=== PATIENT | male | born 1950 | race Two or more races ===

== ENCOUNTER 2018-07-23 20:49 | Inpatient (IN) ==
--- NOTE | 2018-07-23 21:54 | XR ---
EXAM DATE: 07/23/2018 9:50 PM EST AGE/SEX: 68 years / Male INDICATIONS: Cardiac. Patient states he had a heart attack on 07/19/2018 and four stent plac[place] and was advised to come in to be evaluated once [place] was [place]. CLINICAL DATA: This is the patient's initial encounter. Patient reports that signs and symptoms have been present for 1 day and indicates a pain score of 0/10. MEDICAL/SURGICAL HISTORY: . Heart attack. . Stent placements. COMPARISON: [facility] [place]ST SINGLE AP, 11/04/2015. . FINDINGS: A single AP view of the chest demonstrates the lungs to be symmetrically aerated without evidence of mass, infiltrate or effusion. The cardiomediastinal contours are unremarkable. Osseous structures a re intact. CONCLUSION: No acute cardiopulmonary disease. Electronically signed by: Yuan Mejia MD 07/23/2018 9:53 PM EST
--- NOTE | 2018-07-23 22:06 | ED ---
HPI General Chief complaint: Chest Pain Stated complaint: Cardiac Time Seen by Provider: 07/23/18 21:13 History of Present Illness HPI narrative: Patient 68-year-old male presents emergency department for evaluation of coronary artery disease. The patient 4 days ago was surfing in [facility] and on his last wave and he noticed his chest felt uncomfortable. After some time he ultimately went to the local ER and was diagnosed with an inferior IN. He was transferred to a cardiac catheterization lab where he received 4 stents to his right coronary system. He was also noted to have some left main disease about 20% as well as disease of the left anterior descending in the proximal and distal portions. He arrives with a multitude of records from outside hospital a lot of which are nursing records but a summary report in Polish is what most of this information was taken from. Patient currently feels well just some minor fatigue. He actually did get in touch with Dr. Madrid through a friend of the hospital who recommended to come into the emergency department for evaluation. He denies any chest pain shortness of breath abdominal pain nausea vomiting currently. He has been taking his medications including Xarelto 2.5 mg which she was told was for prevention of heart disease. Related Data Home Medications Medication Instructions Recorded Confirmed atorvastatin [Lipitor] 40 mg PO DAILY 07/23/18 07/23/18 esomeprazole magnesium [Nexium 07/23/18 24HR] Allergies Allergy/AdvReac Type Severity Reaction Status Date / Time penicillin G Allergy Severe Unverified 04/16/17 12:50 Review of Systems ROS: all other systems reviewed are negative [facility] Medical History Medical History Heart attack (Acute) Pancreatitis (Acute) Surgical History Surgical History History of coronary artery stent placement (Acute) History of rotator cuff surgery (Acute) Social History Social History Substance History: No History of Abuse Smoking Status: Former smoker How Often Do You Have a Drink Containing Alcohol: Never Recent Travel in USA within the Last 8 Weeks: No Recent Out of Country Travel within the Last 8 Weeks: Yes Immunization History Tetanus Immunization: >5 Years Exam Narrative Exam Narrative: GENERAL: Well-developed well-nourished white pleasant male in no obvious distress. SKIN: Focused skin assessment warm/dry. HEAD: Atraumatic. Normocephalic. EYES: Pupils equal and round. No scleral icterus. No injection or drainage. ENT: No nasal bleeding or discharge. Mucous membranes pink and moist. NECK: Trachea midline. No JVD. CARDIOVASCULAR: Regular rate and rhythm. No murmur appreciated. No murmurs gallops or rubs 2+ symmetrical pulses in all 4 extremities RESPIRATORY: No accessory muscle use. Clear to auscultation. Breath sounds equal bilaterally. No wheezes rales or rhonchi GASTROINTESTINAL: Abdomen soft, non-tender, nondistended. Hepatic and splenic margins not palpable. MUSCULOSKELETAL: No obvious deformities. No clubbing. No cyanosis. No edema. NEUROLOGICAL: Awake and alert. No obvious cranial nerve deficits. Motor grossly within normal limits. Normal speech. PSYCHIATRIC: Appropriate mood and affect; insight and judgment normal. Course Initial Documented Vital Signs Temperature 98.6 F 07/23/18 20:56 Pulse Rate 58 L 07/23/18 20:56 Respiratory Rate 16 07/23/18 20:56 Blood Pressure 123/66 07/23/18 20:56 Pulse Oximetry 100 07/23/18 20:56 Last Documented Vital Signs Temperature 98.6 F 07/23/18 20:56 Pulse Rate 53 L 07/23/18 23:21 Respiratory Rate 18 07/23/18 21:06 Blood Pressure 148/74 H 07/23/18 21:06 Pulse Oximetry 99 07/23/18 23:21 Medical Decision Making MDM Narrative Medical decision making narrative: Patient room to the emergency department, he was discussed with Dr. Madrid on arrival and recommended admission for trending of and CK-MB. He would like to evaluate the patient in the morning for possible repeat cath and recommends n.p.o. after midnight. He would like to review all the records from outside including the cath report before he makes any decisions. Patient's recommendations were discussed with him and he is agreeable to stay. Labs still pending at this time anticipate a positive troponin as his initial event was less than 4 days ago and patient had a troponin of at least 20 at the hospital in [facility]. troponin indeed positive but ckmb negative. patient cp free. ekg shows no acute ischemia. Medical Screen Exam Complete: Yes Emergency Medical Condition: Yes Lab Data Result diagrams: 07/23/18 21:40 07/23/18 21:40 Lab Results 07/23/18 07/23/18 Range/Units 21:40 21:40 WBC 8.3 (4.0-11.0) th/mm3 RBC 4.27 L (4.50-5.90) mil/mm3 Hgb 13.2 (13.0-17.0) gm/dL Hct 38.4 L (39.0-51.0) % MCV 89.8 (80.0-100.0) fL MCH 30.9 (27.0-34.0) pg MCHC 34.4 (32.0-36.0) % RDW 13.8 (11.6-17.2) % Plt Count 201 (150-450) th/mm3 MPV 7.7 (7.0-11.0) fL Neut % (Auto) 65.7 (16.0-70.0) % Lymph % (Auto) 23.2 (9.0-44.0) % [place] % (Auto) 8.5 H (0.0-8.0) % Eos % (Auto) 2.1 (0.0-4.0) % Baso % (Auto) 0.5 (0.0-2.0) % Neut # (Auto) 5.4 (1.8-7.7) th/mm3 Lymph # (Auto) 1.9 (1.0-4.8) th/mm3 [place] # (Auto) 0.7 (0.0-0.9) th/mm3 Eos # (Auto) 0.2 (0.0-0.4) th/mm3 Baso # (Auto) 0.0 (0.0-0.2) th/mm3 WBC Differential . Differential Comment Auto diff final Sodium 139 (136-145) meq/L Potassium 3.6 (3.5-5.1) meq/L Chloride 107 (98-107) meq/L Carbon Dioxide 25.5 (21.0-32.0) meq/L Anion Gap 7 (5-15) meq/L BUN 13 (7-18) mg/dL Creatinine 1.11 (0.60-1.30) mg/dL Estimated GFR 66 L (>89) mL/min Random Glucose 89 (74-106) mg/dL Calcium 8.8 (8.5-10.1) mg/dL Total Bilirubin 0.6 (0.2-1.0) mg/dL AST 38 H (15-37) U/L ALT 43 (12-78) U/L Alkaline Phosphatase 84 (45-117) U/L Total Creatine Kinase 89 (39-308) U/L Troponin I 4.38 H* (0.02-0.05) ng/mL Total Protein 7.3 (6.4-8.2) g/dL Albumin 3.4 (3.4-5.0) g/dL Imaging Data Radiologist's impression: Chest X-Ray 07/23/18 21:37 CONCLUSION: No acute cardiopulmonary disease. Discharge Plan Discharge Disposition Patient Disposition: 30 Still Patient Discharge Condition Condition: Stable Discharge Details Diagnosis: Coronary artery disease Physicians Team ED Provider: Kleby Meléndez Primary Care Provider: Juan Sebastian Attending Provider: Sharon Leonardo Discharge Interventions Interventions: Vital Signs Last Done: 07/23/18 21:06 Status ED Status: Admitted Patient
[2018-07-23 22:07] LABS: Baso % (Auto) 0.5 % (0.0-2.0); Eos # (Auto) 0.2 th/mm3 (0.0-0.4); Eos % (Auto) 2.1 % (0.0-4.0); Hematocrit 38.4 % (39.0-51.0); Hemoglobin 13.2 gm/dL (13.0-17.0); Lymph # (Auto) 1.9 th/mm3 (1.0-4.8); Lymph % (Auto) 23.2 % (9.0-44.0); Mean Corpuscular HGB Conc 34.4 % (32.0-36.0); Mean Corpuscular Hemoglobin 30.9 pg (27.0-34.0); Mean Corpuscular Volume 89.8 fL (80.0-100.0); Mean Platelet Volume 7.7 fL (7.0-11.0); Mono # (Auto) 0.7 th/mm3 (0.0-0.9); Mono % (Auto) 8.5 % (0.0-8.0); Neut # (Auto) 5.4 th/mm3 (1.8-7.7); Neut % (Auto) 65.7 % (16.0-70.0); Platelet Count 201 th/mm3 (150-450); Red Blood Count 4.27 mil/mm3 (4.50-5.90); Red Cell Distribution Width 13.8 % (11.6-17.2); White Blood Count 8.3 th/mm3 (4.0-11.0)
[2018-07-23 22:23] LABS: Albumin 3.4 g/dL (3.4-5.0); Anion Gap 7 meq/L (5-15); Aspartate Aminotransferase 38 U/L (15-37); Blood Urea Nitrogen 13 mg/dL (7-18); Calcium 8.8 mg/dL (8.5-10.1); Carbon Dioxide 25.5 meq/L (21.0-32.0); Chloride 107 meq/L (98-107); Glomerular Filtration Rate 66 mL/min (>89); Glucose,Random 89 mg/dL (74-106); Potassium 3.6 meq/L (3.5-5.1); Sodium 139 meq/L (136-145)
[2018-07-23 22:25] LABS: Alanine Aminotransferase 43 U/L (12-78)
[2018-07-23 22:28] LABS: Alkaline Phosphatase 84 U/L (45-117); Total Protein 7.3 g/dL (6.4-8.2)
[2018-07-23 22:34] LABS: Creatine Kinase 89 U/L (39-308)
[2018-07-23 22:37] LABS: Troponin I 4.38 ng/mL (0.02-0.05)
[2018-07-23] MEDS ORDERED: Bisacodyl 10 MG Supp RECTAL PRN (23:55)
[2018-07-23] MEDS ORDERED: Acetaminophen 325 MG Tablet PO PRN (23:55)
--- NOTE | 2018-07-24 01:23 | P.HP ---
History of Present Illness Service: [facility] Primary Care Physician: Juan Sebastian MD History of Present Illness: 68-year-old male with a past medical history for coronary artery disease, not on any home medications, presents to the emergency department for further evaluation me that occurred on Saturday. The patient was surfing in [facility] when he developed chest pain and was subsequently diagnosed with a right sided SC, status post stenting x4. He was discharged from the hospital in [facility] yesterday and returned to [place] for further evaluation today. He endorses intermittent episodes of chest pain/pressure that radiates down his left arm. He states that the pain usually lasts approximately 2 minutes and then subsides. The pain occurs while at rest. He denies any associated shortness of breath. Positive lightheadedness. No abdominal pain. No nausea/ vomiting/diarrhea. No fever/chills. No focal neurologic deficits. Inpatient Certification: I certify that the inpatient services were ordered in accordance with Medicare regulations governing the order. This includes certification that hospital inpatient services are reasonable and necessary and in the case of services not specified as inpatient-only under 42 CFR 419.22(n), that they are appropriately provided as inpatient services in accordance to with the 2-midnight benchmark under 43 CFR 412.3(e) Estimated Total Length of Stay (Days): 2 Plans for Post Hospital Care: Home Review of Systems All other systems reviewed negative except as stated in HPI [facility] - History History Provided By: Patient - Medical History Medical History: Medical History (Last Reviewed 07/24/18 @ 01:20 by Sharon Leonardo MD) Heart attack Pancreatitis - Surgical History Surgical History: Surgical History (Last Reviewed 07/24/18 @ 01:20 by Sharon Leonardo MD) History of coronary artery stent placement History of rotator cuff surgery - Family History Family History: Family History (Last Updated 07/24/18 @ 01:20 by Sharon Leonardo MD) Other Coronary artery disease - Tobacco History Smoking Status: Former smoker - Alcohol History How Often Do You Have a Drink Containing Alcohol: Never - Substance Use History Substance History: No History of Abuse - Travel History Recent Travel in the [place] Within the Last 8 Weeks: No Recent Travel Out of the Country Within the Last 8 Weeks: Yes - Immunization History Tetanus Immunization: >5 Years Medications and Allergies Active Medications: Active Medications Acetaminophen (Tylenol) 650 mg PO Q4H PRN PRN Reason: Temp > 100.4 Al Hydroxide/Mg Hydroxide (Milk Of Magnesia Liq) 30 ml PO Q12H PRN PRN Reason: Mild Constipation Bisacodyl (Dulcolax Supp) 10 mg RECTAL DAILY PRN PRN Reason: SEVERE CONSITIPATION Lactulose (Lactulose Liq) 30 ml PO DAILY PRN PRN Reason: SEVERE CONSITIPATION Ondansetron HCl (Zofran Inj) 4 mg IV.PUSH Q6H PRN PRN Reason: NAUSEA OR VOMITING Sennosides (Senokot) 17.2 mg PO Q12H PRN PRN Reason: Moderate Constipation Sodium Chloride (Ns Flush) 2 ml IV.FLUSH UNSCH PRN PRN Reason: FLUSH AFTER USING IV ACCESS Allergies Allergy/AdvReac Type Severity Reaction Status Date / Time penicillin G Allergy Severe Unverified 04/16/17 12:50 Home Medications Medication Instructions Recorded Confirmed Type atorvastatin [Lipitor] 40 mg PO DAILY 07/23/18 07/23/18 History esomeprazole magnesium [Nexium 07/23/18 History 24HR] Exam Vital signs: Vital Signs 07/23/18 20:56 07/23/18 21:06 07/23/18 23:21 Temperature 98.6 F Pulse Rate 58 L 45 L 53 L Respiratory Rate 16 18 Blood Pressure 123/66 148/74 H Pulse Oximetry 100 100 99 Intake & Output 07/23/18 07/23/18 07/24/18 06:59 18:59 06:59 Weight 74.843 kg Narrative: Gen.: No acute distress Head: Normocephalic. Atraumatic. EENT: Pupils equal round and reactive to light. Nose without drainage. Airway intact. Throat without injection. Cardiovascular: Regular rate and rhythm. No murmurs, rubs or gallops. Respiratory: Lungs clear to auscultation bilaterally. No wheezes or rhonchi. Abdomen: Soft, nontender, nondistended. No peritoneal signs. Musculoskeletal: No gross deformities. No edema. Skin: No obvious rashes or erythema. Neuro: Sensory and motor grossly intact. Cranial nerves II through XII grossly intact. Results - Labs CBC & Chem 7: 07/23/18 21:40 07/23/18 21:40 Labs: Laboratory Results - last 24 hr 07/23/18 07/23/18 21:40 21:40 WBC 8.3 RBC 4.27 L Hgb 13.2 Hct 38.4 L MCV 89.8 MCH 30.9 MCHC 34.4 RDW 13.8 Plt Count 201 MPV 7.7 Neut % (Auto) 65.7 Lymph % (Auto) 23.2 [place] % (Auto) 8.5 H Eos % (Auto) 2.1 Baso % (Auto) 0.5 Neut # (Auto) 5.4 Lymph # (Auto) 1.9 [place] # (Auto) 0.7 Eos # (Auto) 0.2 Baso # (Auto) 0.0 WBC Differential . Differential Comment Auto diff final Sodium 139 Potassium 3.6 Chloride 107 Carbon Dioxide 25.5 Anion Gap 7 BUN 13 Creatinine 1.11 Estimated GFR 66 L Random Glucose 89 Calcium 8.8 Total Bilirubin 0.6 AST 38 H ALT 43 Alkaline Phosphatase 84 Total Creatine Kinase 89 Troponin I 4.38 H* Total Protein 7.3 Albumin 3.4 - Imaging Impressions Chest X-Ray 07/23/18 21:37 CONCLUSION: No acute cardiopulmonary disease. Caprini VTE Risk Assessment Caprini VTE Risk Assessment: Moderate/High Risk (score >= 2) Caprini Risk Assessment Model: Point Value = 1 Point Value = 2 Point Value = 3 Point Value = 5 Age 41-60 Minor surgery BMI > 25 kg/m2 Swollen legs Varicose veins or History of unexplained or recurrent spontaneous Oral contraceptives or hormone replacement Sepsis (< 1 month) Serious lung disease, including pneumonia (< 1 month) Abnormal pulmonary function Acute myocardial infarction Congestive heart failure (< 1 month) History of inflammatory bowel disease Medical patient at bed rest Age 61-74 Arthroscopic surgery Major open surgery (> 45 min) Laparoscopic surgery (> 45 min) Malignancy Confined to bed (> 72 hours) Immobilizing plaster cast Central venous access Age >= 75 History of VTE Family history of VTE Factor V Leiden Prothrombin [id number] Lupus anticoagulant Anticardiolipin antibodies Elevated serum homocysteine Heparin-induced thrombocytopenia Other congenital or acquired thrombophilia Stroke (< 1 month) Elective arthroplasty Hip, pelvis, or leg fracture Acute spinal cord injury (< 1 month) Prophylaxis Regimen: Total Risk Factor Score Risk Level Prophylaxis Regimen 0-1 Low Early ambulation 2 Moderate Order ONE of the following: *Sequential Compression Device (SCD) *Heparin 5000 units SQ BID 3-4 Higher Order ONE of the following medications: *Heparin 5000 units SQ TID *Enoxaparin/Lovenox 40 mg SQ daily (WT < 150 kg, CrCl > 30 mL/min) *Enoxaparin/Lovenox 30 mg SQ daily (WT < 150 kg, CrCl > 10-29 mL/min) *Enoxaparin/Lovenox 30 mg SQ BID (WT < 150 kg, CrCl > 30 mL/min) AND/OR *Sequential Compression Device (SCD) 5 or more Highest Order ONE of the following medications: *Heparin 5000 units SQ TID (Preferred with Epidurals) *Enoxaparin/Lovenox 40 mg SQ daily (WT < 150 kg, CrCl > 30 mL/min) *Enoxaparin/Lovenox 30 mg SQ daily (WT < 150 kg, CrCl > 10-29 mL/min) *Enoxaparin/Lovenox 30 mg SQ BID (WT < 150 kg, CrCl > 30 mL/min) AND *Sequential Compression Device (SCD) Assessment and Plan - Plan Assessment/plan: 1. Coronary disease/status post SC/unstable angina Patient is status post angioplasty of critically occluded RCA and PDA (4 stents) Patient was also noted to have left main disease as well as LAD in the proximal and distal portions Initial troponin was 20.2, repeat today 4.38 Repeat troponin in 6 hours to ensure it is trending down EKG negative for acute ischemia, personally reviewed Cardiology consulted, plan for possible repeat catheterization in the morning Continue plavix FEN N.p.o. Electrolytes: Monitor and replete as needed NS at 100 cc/hour Heparin
[2018-07-24 03:43] LABS: Baso # (Auto) 0.1 th/mm3 (0.0-0.2); Eos # (Auto) 0.2 th/mm3 (0.0-0.4); Eos % (Auto) 2.3 % (0.0-4.0); Hematocrit 37.2 % (39.0-51.0); Hemoglobin 13.2 gm/dL (13.0-17.0); Lymph # (Auto) 1.8 th/mm3 (1.0-4.8); Lymph % (Auto) 21.9 % (9.0-44.0); Mean Corpuscular HGB Conc 35.5 % (32.0-36.0); Mean Corpuscular Hemoglobin 31.6 pg (27.0-34.0); Mean Platelet Volume 7.4 fL (7.0-11.0); Mono # (Auto) 0.7 th/mm3 (0.0-0.9); Mono % (Auto) 8.1 % (0.0-8.0); Neut # (Auto) 5.4 th/mm3 (1.8-7.7); Neut % (Auto) 66.7 % (16.0-70.0); Platelet Count 182 th/mm3 (150-450); Red Blood Count 4.18 mil/mm3 (4.50-5.90); Red Cell Distribution Width 13.6 % (11.6-17.2); White Blood Count 8.1 th/mm3 (4.0-11.0)
[2018-07-24 04:07] LABS: Calcium 8.9 mg/dL (8.5-10.1); Carbon Dioxide 25.5 meq/L (21.0-32.0); Potassium 3.8 meq/L (3.5-5.1)
[2018-07-24 04:14] LABS: Troponin I 3.95 ng/mL (0.02-0.05)
[2018-07-24] MEDS ORDERED: Heparin - SQ 10,000 UNITS/ML Vial SQ SCH (06:00)
[2018-07-24] MEDS: Sod Chloride 0.9% Inj 1,000 ML IV.CONT SCH ×3 (06:14→21:19)
--- NOTE | 2018-07-24 08:08 | P.PN ---
Subjective Interval history: Follow-up for CAD status post recent stent placements. He was admitted to the hospital due to ongoing chest pressure. His last 2 troponins were 4.38 and 3.95. Cardiology consult pending. Physical Exam Vital signs: Vital Signs 07/23/18 20:56 07/23/18 21:06 07/23/18 23:21 Temperature 98.6 F Pulse Rate 58 L 45 L 53 L Respiratory Rate 16 18 Blood Pressure 123/66 148/74 H Pulse Oximetry 100 100 99 07/24/18 01:50 07/24/18 02:00 07/24/18 03:00 Temperature 97.7 F Pulse Rate 47 L 50 L 44 L Respiratory Rate 14 14 Blood Pressure 129/63 102/62 Pulse Oximetry 100 100 07/24/18 04:00 07/24/18 05:37 07/24/18 06:00 Temperature Pulse Rate 45 L 45 L 44 L Respiratory Rate Blood Pressure Pulse Oximetry Intake & Output 07/23/18 07/24/18 07/24/18 18:59 06:59 18:59 Intake Total 0 / 0 Output Total 100 / 100 Balance -100 / -100 Weight 73 kg Intake: Oral 0 / 0 Output: Urine 100 / 100 Other: # Bowel Movements 0 Narrative: GENERAL: Alert, oriented x3, NAD. SKIN: Warm and dry. HEAD: Normocephalic. EYES: No scleral icterus. No injection or drainage. NECK: Supple, trachea midline. No JVD or lymphadenopathy. CARDIOVASCULAR: Regular rate and rhythm without murmurs, gallops, or rubs. RESPIRATORY: Breath sounds equal bilaterally. No accessory muscle use. GASTROINTESTINAL: Abdomen soft, non-tender, nondistended. MUSCULOSKELETAL: No cyanosis, or edema. BACK: Nontender without obvious deformity. No CVA tenderness. Results - Labs CBC & Chem 7: 07/24/18 03:33 07/24/18 03:33 Laboratory Results - last 24 hr 07/23/18 07/23/18 07/24/18 21:40 21:40 03:33 WBC 8.3 8.1 RBC 4.27 L 4.18 L Hgb 13.2 13.2 Hct 38.4 L 37.2 L MCV 89.8 89.0 MCH 30.9 31.6 MCHC 34.4 35.5 RDW 13.8 13.6 Plt Count 201 182 MPV 7.7 7.4 Neut % (Auto) 65.7 66.7 Lymph % (Auto) 23.2 21.9 [place] % (Auto) 8.5 H 8.1 H Eos % (Auto) 2.1 2.3 Baso % (Auto) 0.5 1.0 Neut # (Auto) 5.4 5.4 Lymph # (Auto) 1.9 1.8 [place] # (Auto) 0.7 0.7 Eos # (Auto) 0.2 0.2 Baso # (Auto) 0.0 0.1 WBC Differential . . Differential Comment Auto diff final Auto diff final Sodium 139 Potassium 3.6 Chloride 107 Carbon Dioxide 25.5 Anion Gap 7 BUN 13 Creatinine 1.11 Estimated GFR 66 L Random Glucose 89 Calcium 8.8 Total Bilirubin 0.6 AST 38 H ALT 43 Alkaline Phosphatase 84 Total Creatine Kinase 89 Troponin I 4.38 H* Total Protein 7.3 Albumin 3.4 07/24/18 03:33 WBC RBC Hgb Hct MCV MCH MCHC RDW Plt Count MPV Neut % (Auto) Lymph % (Auto) [place] % (Auto) Eos % (Auto) Baso % (Auto) Neut # (Auto) Lymph # (Auto) [place] # (Auto) Eos # (Auto) Baso # (Auto) WBC Differential Differential Comment Sodium 142 Potassium 3.8 Chloride 108 H Carbon Dioxide 25.5 Anion Gap 9 BUN 15 Creatinine 1.04 Estimated GFR 71 L Random Glucose 96 Calcium 8.9 Total Bilirubin AST ALT Alkaline Phosphatase Total Creatine Kinase 71 Troponin I 3.95 H* Total Protein Albumin - Imaging Impressions Chest X-Ray 07/23/18 21:37 CONCLUSION: No acute cardiopulmonary disease. - Procedures Patient underwent 4 cardiac stent placement in [facility] prior to coming to [place]. Assessment and Plan - Plan Mr. Pitts is a very pleasant 68-year-old male with a history of coronary artery disease who presented to the emergency department on 07/24/2018 due to chest pressure. Patient was recently in [facility] where he developed chest pain and was subsequently diagnosed with right-sided myocardial infarction requiring 4 stents. He was discharged from the hospital on Saturday and he flew back to [place] after that. Due to intermittent chest pain that radiates to his left arm, patient decided to come to the emergency department. His troponin was 4.38 admission. Elevated troponin Chest pain Coronary artery disease -s/p 4 stent placements in [facility]. Elevated troponins likely due to recent acute coronary syndrome Cardiology consult pending. Continue aspirin 162 mg p.o. daily, Plavix 75 mg p.o. daily. Patient's heart rate is in the 40s-50s. Blood pressure is also low in the 116 range systolic. We probably cannot use a beta radha at this point. -We will start patient on atorvastatin 40 mg at bedtime. Full code. Lovenox for DVT prophylaxis.
--- NOTE | 2018-07-24 10:25 | MB ---
cc: Matty Madrid MD DATE: 07/24/2018 HISTORY OF PRESENT ILLNESS: Tulio is a very pleasant 68-year-old gentleman, who is a [place] citizen, who lives in [facility]. On 07/19/2018, he had an inferior ST-elevation myocardial infarction, underwent a PCI through the right radial approach with 4 stents placed in the right coronary artery. Angiography also revealed a high-grade ostial LAD lesion. LV function was not assessed on the films. I did review his films today. The patient flew up from [facility] yesterday, and was electively admitted to [place] through the ER last night. He is currently sitting up in bed in no acute distress. Denies chest pain, fever, chills, cough, GI or bleeding, PND, orthopnea, syncope, or dizziness. PAST MEDICAL HISTORY: Includes myocardial infarction, pancreatitis, rotator cuff surgery. ALLERGIES: PENICILLIN G. SOCIAL HISTORY: Former smoker. Denies alcohol use. Currently does not smoke. MEDICATIONS IN THE HOSPITAL: 1. Aspirin 162 mg daily. 2. Clopidogrel 75 mg daily. 3. Heparin 5000 subcutaneous every 8 hours. PHYSICAL EXAMINATION: VITAL SIGNS: Pulse ranging between 44 and 57. Temperature 97.9, respiratory rate 16, blood pressure 116/59. GENERAL: He is alert and oriented x3, in no acute distress. NECK: Supple. No JVD. No bruit. CARDIOVASCULAR: S1, S2. No murmurs, rubs or gallops. LUNGS: Clear to auscultation bilaterally. ABDOMEN: Soft, nontender, nondistended with positive bowel sounds. EXTREMITIES: No lower extremity edema. DIAGNOSTIC DATA: Chest x-ray shows no acute cardiopulmonary disease. EKG shows sinus bradycardia at 45 beats per minute, inferior Q-waves with [address] segment elevation, T-wave inversion consistent with a recent inferior myocardial infarction. White count 8.1, hemoglobin 13.2, hematocrit 37.2, platelet count is 182. Sodium 142, potassium 3.8, chloride 108, bicarbonate 25.5, BUN 15, creatinine 1.04. AST is 38. Troponin 4.3, followed by 3.95. DIAGNOSES: 1. Coronary artery disease. 2. Recent ST-elevation myocardial infarction. 3. Sinus bradycardia. DISCUSSION: At this point in time, I have reviewed his films. He has approximately a 30-45 degree angulation of the LAD off the left circumflex with an ostial LAD stenosis of 80% extending into the proximal LAD. This will be a very high risk intervention, as it would be impossible to stent the ostium of the LAD without possibly jailing the left circumflex, and/or having a corner of the stent existing in the distal left main. this would be high risk for stent thrombosis and high risk for mortality if this were to occur. Given the ostial proximal location of the LAD, he is asymptomatic; however, due to the large amount of jeopardized myocardium, it is a high risk lesion, and I recommend a coronary artery bypass graft procedure to this vessel. This will be somewhat of a dilemma to this decision, given the long length of stent placement in the right coronary artery recently and recent [facility], and requirement for dual antiplatelet therapy. I discussed this in detail with him with the nurse, Rylee, at the bedside. Could consider perioperative heparin and Aggrastat. We will get a consult with cardiothoracic surgery. I also recommend getting a 2-D echo, as it does not appear he has had a ventriculogram on the catheterization films that I reviewed. Also will start him on Lovenox subcutaneously every 12 hours due to the long length of stent in the right coronary artery and ongoing bradycardia. His liver enzymes are elevated, most likely from the infarction. We will check fasting lipids, LFTs, and CK, and trend the liver enzymes. Once they normalize, will start a statin. MD HANS Hinojosa/ , 09:56 AM , 10:06 AM
--- NOTE | 2018-07-24 15:29 | ECHRPT ---
Indication: CORONARY ATHEROSCLEROSIS CONCLUSIONS Normal left ventricular size. Wall thickness is normal. The left ventricular systolic function is normal with an estimated ejection fraction in the range of 55-60%. Trace mitral valve regurgitation. BP: / HR: Rhythm: Sinus MEASUREMENTS (Male / Female) Normal Values Technical Quality:Fair 2D ECHO LV Diastolic Diameter PLAX 5.3 cm 4.2 - 5.9 / 3.9 - 5.3 cm LV Systolic Diameter PLAX 4.0 cm IVS Diastolic Thickness 0.8 cm 0.6 - 1.0 / 0.6 - 0.9 cm LVPW Diastolic Thickness 0.8 cm 0.6 - 1.0 / 0.6 - 0.9 cm LV Relative Wall Thickness 0.3 RV Internal Dim ED PLAX 2.8 cm LVOT Diameter 2.1 cm Aortic Root Diameter 3.8 cm LA Systolic Diameter LX 3.7 cm 3.0 - 4.0 / 2.7 - 3.8 cm M-MODE AV Cusp Separation MM 2.1 cm DOPPLER AV Peak Velocity 123.0 cm/s AV Peak Gradient 6.1 mmHg AV Mean Gradient 3.0 mmHg AV Velocity Time Integral 21.1 cm LVOT Peak Velocity 100.0 cm/s LVOT Peak Gradient 4.0 mmHg LVOT Velocity Time Integral 19.6 cm AV Area Cont Eq vti 3.2 cm AV Area Cont Eq pk 2.8 cm Mitral E Point Velocity 63.2 cm/s Mitral A Point Velocity 70.6 cm/s Mitral E to A Ratio 0.9 LV E' Lateral Velocity 10.0 cm/s Mitral E to LV E' Lateral Ratio 6.3 LV E' Septal Velocity 6.1 cm/s Mitral E to LV E' Septal Ratio 10.3 TR Peak Velocity 214.0 cm/s TR Peak Gradient 18.3 mmHg PV Peak Velocity 45.1 cm/s PV Peak Gradient 0.8 mmHg FINDINGS LEFT VENTRICLE Normal left ventricular size. Wall thickness is normal. The left ventricular systolic function is normal with an estimated ejection fraction in the range of 55-60%. RIGHT VENTRICLE Normal right ventricular size and systolic function. LEFT ATRIUM The left atrial size is normal. RIGHT ATRIUM The right atrial size is normal. ATRIAL SEPTUM No atrial level shunt is demonstrated by color flow Doppler interrogation. AORTA The aortic root and proximal ascending aorta are normal in size on limited imaging. MITRAL VALVE Trace mitral valve regurgitation. AORTIC VALVE Trileaflet aortic valve. No aortic valve stenosis or regurgitation. TRICUSPID VALVE There is trace tricuspid valve regurgitation. PULMONARY VALVE No pulmonary valve regurgitation or stenosis. VESSELS The inferior vena cava was not well visualized. PERICARDIUM No pericardial effusion. Max Arteaga MD (Electronically Signed) Final Date:24 July 2018 15:28
[2018-07-24] MEDS: Enoxaparin Inj 80 MG/0.8 ML Syringe SQ SCH (21:17)
--- NOTE | 2018-07-24 22:27 | ECG ---
Date Performed: 07/24/2018 Time Performed: 08:15:18 PTAGE: 68 years EKG: Sinus bradycardia with 1st degree A-V block Inferior infarct - age undetermined Low QRS vol tages in limb leads Abnormal ECG PREVIOUS TRACING : 07/24/2018 04.08 Since the previous tracing, no significant change noted DOCTOR: Paul Delgadillo Interpretating Date/Time 07/24/2018 22:26:53
--- NOTE | 2018-07-24 22:41 | ECG ---
Date Performed: 07/24/2018 Time Performed: 04:08:04 PTAGE: 68 years EKG: Sinus bradycardia with 1st degree A-V block Inferior infarct - age undetermined Abnormal EC G PREVIOUS TRACING : 10/31/2015 04.48 DOCTOR: Paul Delgadillo Interpretating Date/Time 07/24/2018 22:40:26
--- NOTE | 2018-07-24 23:13 | ECG ---
Date Performed: 07/23/2018 Time Performed: 21:10:49 PTAGE: 68 years EKG: SINUS BRADYCARDIA WITH FIRST DEGREE AV BLOCK INFERIOR MYOCARDIAL INFARCTION ABNORMAL ECG IL EVIOUS ECG 4.48: Compared to PREVIOUS TRACING , sinus bradycardia is new DOCTOR: Paul Delgadillo Interpretating Date/Time 07/24/2018 23:11:31
[2018-07-25] MEDS ORDERED: Metoprolol Tartrate 25 MG Tablet PO SCH (05:00)
[2018-07-25 05:50] LABS: Hemoglobin 12.8 gm/dL (13.0-17.0); Mean Corpuscular HGB Conc 34.7 % (32.0-36.0); Mean Corpuscular Hemoglobin 31.1 pg (27.0-34.0); Mean Corpuscular Volume 89.7 fL (80.0-100.0); Mean Platelet Volume 7.6 fL (7.0-11.0); Platelet Count 172 th/mm3 (150-450); Red Blood Count 4.12 mil/mm3 (4.50-5.90); Red Cell Distribution Width 13.5 % (11.6-17.2); White Blood Count 8.7 th/mm3 (4.0-11.0)
[2018-07-25 06:19] LABS: Albumin 2.9 g/dL (3.4-5.0)
[2018-07-25 06:22] LABS: Chol/HDL Ratio 3.11 Ratio; HDL Cholesterol 34.3 mg/dL (40.0-60.0); Total Protein 6.5 g/dL (6.4-8.2)
[2018-07-25] MEDS: Enoxaparin Inj 80 MG/0.8 ML Syringe SQ SCH (08:38)
--- NOTE | 2018-07-25 12:01 | P.PN ---
Subjective Interval history: Follow-up for CAD status post recent stent placements. Recent is currently doing well. He is ablating in the room. On room air. He does have mild chest pressure sensation. No other acute concerns. He remains in good spirit. Physical Exam Vital signs: Vital Signs 07/24/18 12:00 07/24/18 13:00 07/24/18 14:00 Temperature 97.8 F Pulse Rate 46 L 48 L 58 L Respiratory Rate 16 Blood Pressure 116/56 L Pulse Oximetry 99 07/24/18 15:00 07/24/18 16:00 07/24/18 17:00 Temperature 97.2 F L Pulse Rate 53 L 64 57 L Respiratory Rate 16 Blood Pressure 98/55 L Pulse Oximetry 100 07/24/18 18:00 07/24/18 19:00 07/24/18 20:00 Temperature 97.7 F Pulse Rate 58 L 50 L 52 L Respiratory Rate 18 Blood Pressure 119/62 Pulse Oximetry 100 100 07/24/18 21:00 07/24/18 22:00 07/24/18 23:00 Temperature 97.8 F Pulse Rate 46 L 48 L 56 L Respiratory Rate 18 Blood Pressure 102/53 L Pulse Oximetry 100 07/25/18 00:00 07/25/18 01:00 07/25/18 02:00 Temperature Pulse Rate 53 L 55 L 51 L Respiratory Rate Blood Pressure Pulse Oximetry 07/25/18 03:00 07/25/18 04:00 07/25/18 05:00 Temperature 98.0 F Pulse Rate 55 L 57 L 54 L Respiratory Rate 18 Blood Pressure 107/61 Pulse Oximetry 98 07/25/18 06:00 07/25/18 07:00 07/25/18 08:00 Temperature 98.0 F Pulse Rate 71 48 L 60 Respiratory Rate 16 Blood Pressure 106/55 L Pulse Oximetry 98 07/25/18 08:30 07/25/18 09:00 07/25/18 10:00 Temperature Pulse Rate 58 L 46 L Respiratory Rate Blood Pressure Pulse Oximetry 98 07/25/18 11:00 Temperature 97.3 F L Pulse Rate 50 L Respiratory Rate 16 Blood Pressure 116/66 Pulse Oximetry 100 Intake & Output 07/24/18 07/25/18 07/25/18 18:59 06:59 18:59 Intake Total 480 / 480 1410 / 1410 Output Total 550 / 550 Balance -70 / -70 1410 / 1410 Weight 74 kg Intake: IV 1000 / 1000 NS Inj 1,000 ML @ 100 mls/hr IV 1000 / 1000 .CONT .Q10H [facility] Rx#:[id number] Oral 480 / 480 410 / 410 Output: Urine 550 / 550 Other: # Voids 4 2 Date of Last Bowel Movement 07/22/18 07/22/18 # Bowel Movements 0 Narrative: GENERAL: Alert, oriented x3, NAD. SKIN: Warm and dry. HEAD: Normocephalic. EYES: No scleral icterus. No injection or drainage. NECK: Supple, trachea midline. No JVD or lymphadenopathy. CARDIOVASCULAR: Regular rate and rhythm without murmurs, gallops, or rubs. RESPIRATORY: Breath sounds equal bilaterally. No accessory muscle use. GASTROINTESTINAL: Abdomen soft, non-tender, nondistended. MUSCULOSKELETAL: No cyanosis, or edema. BACK: Nontender without obvious deformity. No CVA tenderness. Results - Labs CBC & Chem 7: 07/25/18 05:26 07/24/18 03:33 Laboratory Results - last 24 hr 07/25/18 07/25/18 07/25/18 05:26 05:26 05:26 WBC 8.7 RBC 4.12 L Hgb 12.8 L Hct 37.0 L MCV 89.7 MCH 31.1 MCHC 34.7 RDW 13.5 Plt Count 172 MPV 7.6 Magnesium 2.0 Total Bilirubin 0.5 Direct Bilirubin 0.2 Indirect Bilirubin 0.3 AST 20 ALT 33 Alkaline Phosphatase 85 B-Natriuretic Peptide 178 H Total Protein 6.5 D Albumin 2.9 L Triglycerides 108 Cholesterol 107 L LDL Cholesterol, Calc 51 HDL Cholesterol 34.3 L Cholesterol/HDL Ratio 3.11 - Procedures Patient underwent 4 cardiac stent placement in [facility] prior to coming to [facility]. Assessment and Plan - Plan Mr. Pitts is a very pleasant 68-year-old male with a history of coronary artery disease who presented to the emergency department on 07/24/2018 due to chest pressure. Patient was recently in [facility] where he developed chest pain and was subsequently diagnosed with right-sided myocardial infarction requiring 4 stents. He was discharged from the hospital on Saturday and he flew back to [place] after that. Due to intermittent chest pain that radiates to his left arm, patient decided to come to the emergency department. His troponin was 4.38 admission. Elevated troponin Chest pain Coronary artery disease Multivessel CAD. -s/p 4 stent placements in [facility]. Elevated troponins likely due to recent acute coronary syndrome Cardiology evaluated patient and recommended Cardiovascular surgery evaluation Continue aspirin 162 mg p.o. daily, Plavix 75 mg p.o. daily. Patient's heart rate is in the 40s-50s. Blood pressure is also low in the 116 range systolic. We probably cannot use a beta radha at this point. -We will continue patient on atorvastatin 40 mg at bedtime. Full code. Currently on full dose Lovenox per Cardiology rec. Lovenox 80mg Q12hrs.
[2018-07-25] MEDS ORDERED: Dextrose 50% in Water 50 ML Vial IV.PUSH PRN (12:45)
[2018-07-25] MEDS ORDERED: Chlorhexidine 4% Topical 120 APPLIC/120 ML Bottle TOPICAL SCH (12:45)
[2018-07-25] MEDS ORDERED: Sodium Chlor 0.9% Inj 77.5 ML, Papaverine Inj 60 MG, Nitroglycerin Inj 100 MCG, dilTIAZ... IRRIGATION SCH ×3 (12:45)
[2018-07-25] MEDS ORDERED: Sodium Chloride 0.9% Irr Bot 1,000 ML, Vancomycin Inj 1,000 MG IRRIGATION SCH ×2 (12:45)
[2018-07-25] MEDS ORDERED: Insulin Regular (For Infusion) 100 UNIT in Sodium Chlor 0.9% Inj 99 ML IV.CONT PRN (12:45)
[2018-07-25] MEDS ORDERED: Tirofiban Inj 12,500 MCG/250 ML PLAST..BAG IV.CONT SCH (13:00)
[2018-07-25] MEDS ORDERED: Vancomycin Inj 1,250 MG in Sodium Chlor 0.9% Inj 250 ML IV.SIG SCH (13:00)
[2018-07-25 13:55] LABS: Activated Partial Thrombo Time 33.6 sec (23.4-31.7); INR 1.1 Ratio; Prothrombin Time 10.7 sec (9.8-11.6)
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
[2018-07-25] MEDS: Heparin Drip 25,000 UNIT/250 ML BAG IV.CONT PRN (15:48)
--- NOTE | 2018-07-25 16:52 | P.PNCA ---
Subjective Interval history: assymptomatic in nad Medications and Allergies Active Medications: Active Medications Acetaminophen (Tylenol) 650 mg PO Q4H PRN PRN Reason: Temp > 100.4 Al Hydroxide/Mg Hydroxide (Milk Of Magnesia Liq) 30 ml PO Q12H PRN PRN Reason: Mild Constipation Aspirin (Ecotrin) 162 mg PO DAILY [facility] Last Admin: 07/25/18 08:38 Dose: 162 mg Atorvastatin Calcium (Lipitor) 40 mg PO HS [facility] Last Admin: 07/24/18 21:17 Dose: 40 mg Bisacodyl (Dulcolax Supp) 10 mg RECTAL DAILY PRN PRN Reason: SEVERE CONSITIPATION Chlorhexidine Gluconate (Hibiclens 4% Topical) 1 applicatio [employer] [facility] Stop: 07/31/18 12:45 Sodium Chloride 77.5 ml/Papaverine HCl 60 mg/Nitroglycerin 100 mcg/Diltiazem HCl 100 mg 0 ml [employer] [facility] Stop: 07/31/18 12:45 Sodium Chloride 1,000 ml/ (Vancomycin HCl 1,000 mg) 0 ml [employer] [facility] Stop: 07/31/18 12:46 Dextrose (D50w Vial) 50 ml IV.PUSH UNSCH PRN PRN Reason: PER HYPOGLYCEMIA PROTOCOL Sodium Chloride (Ns Inj) 1,000 mls @ 100 mls/hr IV.CONT .Q10H [facility] Last Admin: 07/24/18 21:19 Dose: Not Given Insulin Human Regular 100 unit (/ Sodium Chloride) 100 mls @ 3 mls/hr IV.CONT TITRATE PRN; Protocol PRN Reason: See Protocol Vancomycin HCl 1,250 mg/ (Sodium Chloride) 262.5 mls @ 250 mls/hr IV.SIG [employer] OFF[employer]ER [facility] Stop: 07/31/18 12:46 Heparin Sodium/Dextrose (Heparin/D5w 25,000 U/250 Ml) 25,000 unit in 250 mls @ 0 mls/hr IV.CONT TITRATE PRN; Protocol PRN Reason: Per Protocol Last Admin: 07/25/18 15:48 Dose: 900 units/hr, 9 mls/hr Tirofiban/Sodium Chloride (Aggrastat Inj) 12,500 mcg in 250 mls @ 0 mls/hr IV.CONT .Q0M [facility]; Protocol Lactulose (Lactulose Liq) 30 ml PO DAILY PRN PRN Reason: SEVERE CONSITIPATION Metoprolol Tartrate (Lopressor) 12.5 mg PO [employer] [facility] Stop: 07/31/18 12:47 Mupirocin (Bactroban 2% Nasal Oint) 1 applicatio EACH NARE BID [facility] Stop: 07/29/18 12:47 Ondansetron HCl (Zofran Inj) 4 mg IV.PUSH Q6H PRN PRN Reason: NAUSEA OR VOMITING Sennosides (Senokot) 17.2 mg PO Q12H PRN PRN Reason: Moderate Constipation Sodium Chloride (Ns Flush) 2 ml IV.FLUSH UNSCH PRN PRN Reason: FLUSH AFTER USING IV ACCESS Sodium Chloride (Ns Flush) 2 ml IV.FLUSH PRN PRN PRN Reason: FLUSH AFTER USING IV ACCESS Sodium Chloride (Ns Flush) 2 ml IV.FLUSH BID [facility] Allergies Allergy/AdvReac Type Severity Reaction Status Date / Time penicillin G Allergy Severe Unverified 04/16/17 12:50 Home Medications Medication Instructions Recorded Confirmed Type atorvastatin [Lipitor] 40 mg PO DAILY 07/23/18 07/23/18 History esomeprazole magnesium [Nexium 07/23/18 History 24HR] Physical Exam Vital signs: Vital Signs 07/24/18 17:00 07/24/18 18:00 07/24/18 19:00 Temperature 97.7 F Pulse Rate 57 L 58 L 50 L Respiratory Rate 18 Blood Pressure 119/62 Pulse Oximetry 100 07/24/18 20:00 07/24/18 21:00 07/24/18 22:00 Temperature Pulse Rate 52 L 46 L 48 L Respiratory Rate Blood Pressure Pulse Oximetry 100 07/24/18 23:00 07/25/18 00:00 07/25/18 01:00 Temperature 97.8 F Pulse Rate 56 L 53 L 55 L Respiratory Rate 18 Blood Pressure 102/53 L Pulse Oximetry 100 07/25/18 02:00 07/25/18 03:00 07/25/18 04:00 Temperature 98.0 F Pulse Rate 51 L 55 L 57 L Respiratory Rate 18 Blood Pressure 107/61 Pulse Oximetry 98 07/25/18 05:00 07/25/18 06:00 07/25/18 07:00 Temperature 98.0 F Pulse Rate 54 L 71 48 L Respiratory Rate 16 Blood Pressure 106/55 L Pulse Oximetry 98 07/25/18 08:00 07/25/18 08:30 07/25/18 09:00 Temperature Pulse Rate 60 58 L Respiratory Rate Blood Pressure Pulse Oximetry 98 07/25/18 10:00 07/25/18 11:00 07/25/18 15:00 Temperature 97.3 F L 97.5 F L Pulse Rate 46 L 50 L 54 L Respiratory Rate 16 16 Blood Pressure 116/66 127/62 Pulse Oximetry 100 96 Intake & Output 07/24/18 07/25/18 07/25/18 18:59 06:59 18:59 Intake Total 480 / 480 1410 / 1410 Output Total 550 / 550 Balance -70 / -70 1410 / 1410 Weight 74 kg Intake: IV 1000 / 1000 NS Inj 1,000 ML @ 100 mls/hr IV 1000 / 1000 .CONT .Q10H [facility] Rx#:[id number] Oral 480 / 480 410 / 410 Output: Urine 550 / 550 Other: # Voids 4 2 Date of Last Bowel Movement 07/22/18 07/22/18 # Bowel Movements 0 - Constitutional no acute distress - Routine HEENT Exam Head: Present: normocephalic - Routine Neck Exam Present: supple - Routine Respiratory Exam Present: CTA bilaterally - Routine Cardiovascular Exam Present: S1, S2 - Routine Abdominal Exam Present: soft - Routine Extremities Exam Comments: no gladys Results 07/25/18 05:26 07/24/18 03:33 Cardiac Enzymes 07/23/18 07/24/18 07/25/18 Range/Units 21:40 03:33 05:26 AST 38 H 20 (15-37) U/L Troponin I 4.38 H* 3.95 H* (0.02-0.05) ng/mL B-Natriuretic Peptide (0-100) pg/mL 07/25/18 Range/Units 05:26 AST (15-37) U/L Troponin I (0.02-0.05) ng/mL B-Natriuretic Peptide 178 H (0-100) pg/mL Coagulation 07/25/18 07/25/18 Range/Units 05:26 13:26 PT 10.7 (9.8-11.6) sec APTT 33.6 H (23.4-31.7) sec B-Natriuretic Peptide 178 H (0-100) pg/mL Lipids 07/25/18 Range/Units 05:26 Triglycerides 108 (42-150) mg/dL Cholesterol 107 L (120-200) mg/dL HDL Cholesterol 34.3 L (40.0-60.0) mg/dL Cholesterol/HDL Ratio 3.11 Ratio CBC 07/23/18 07/24/18 07/25/18 Range/Units 21:40 03:33 05:26 WBC 8.3 8.1 8.7 (4.0-11.0) th/mm3 RBC 4.27 L 4.18 L 4.12 L (4.50-5.90) mil/mm3 Hgb 13.2 13.2 12.8 L (13.0-17.0) gm/dL Hct 38.4 L 37.2 L 37.0 L (39.0-51.0) % Plt Count 201 182 172 (150-450) th/mm3 Neut # (Auto) 5.4 5.4 (1.8-7.7) th/mm3 Lymph # (Auto) 1.9 1.8 (1.0-4.8) th/mm3 [place] # (Auto) 0.7 0.7 (0.0-0.9) th/mm3 Eos # (Auto) 0.2 0.2 (0.0-0.4) th/mm3 Baso # (Auto) 0.0 0.1 (0.0-0.2) th/mm3 Comprehensive Metabolic Panel 07/23/18 07/24/18 07/25/18 Range/Units 21:40 03:33 05:26 Sodium 139 142 (136-145) meq/L Potassium 3.6 3.8 (3.5-5.1) meq/L Chloride 107 108 H (98-107) meq/L Carbon Dioxide 25.5 25.5 (21.0-32.0) meq/L BUN 13 15 (7-18) mg/dL Creatinine 1.11 1.04 (0.60-1.30) mg/dL Calcium 8.8 8.9 (8.5-10.1) mg/dL Direct Bilirubin 0.2 (0.0-0.2) mg/dL Indirect Bilirubin 0.3 (0.0-0.8) mg/dL AST 38 H 20 (15-37) U/L ALT 43 33 (12-78) U/L Alkaline Phosphatase 84 85 (45-117) U/L Total Protein 7.3 6.5 D (6.4-8.2) g/dL Albumin 3.4 2.9 L (3.4-5.0) g/dL Intake and Output 07/25/18 07/25/18 07/25/18 06:59 14:59 22:59 Intake Total 410 / 410 Balance 410 / 410 Intake: Oral 410 / 410 Other: # Voids 2 Date of Last Bowel Movement 07/22/18 07/22/18 # Bowel Movements 0 Weight 74 kg - Imaging and Cardiology Imaging: Impressions Chest X-Ray 07/23/18 21:37 CONCLUSION: No acute cardiopulmonary disease. Assessment and Plan - Assessment (1) Coronary artery disease Code(s): I25.10 - Atherosclerotic heart disease of [place] coronary artery without angina pectoris Status: Acute Plan: 1.) CAD - assymptomatic, continue aspirin, tirofoban, lipitor. Plavix held, cabg per Dr Morales 07/14/18 (1) Coronary artery disease Qualifiers: Coronary Disease-Associated Artery/Lesion type: [place] artery [place] vs. transplanted heart: [place] heart Associated angina: with unstable angina Qualified Code(s): I25.110 - Atherosclerotic heart disease of [place] coronary artery with unstable angina pectoris
[2018-07-25 19:44] LABS: Bilirubin,Urine Negative (Negative); Clarity,Urine Clear (Clear); Color,Urine Yellow (Yellw/Straw); Glucose,Urine (UA) Negative (Negative); Leukocyte Esterase,Urine Negative (Negative); Nitrite,Urine Negative (Negative); Specific Gravity,Urine 1.014 (1.002-1.035); Urobilinogen,Urine 4 or Greater mg/dL (Less than 2)
[2018-07-25] MEDS: Mupirocin 2% Nasal Oint Topical Syringe EACH NARE SCH (20:05)
[2018-07-25] MEDS: Sod Chloride 0.9% Inj 1,000 ML IV.CONT SCH (20:10)
[2018-07-26] MEDS: Sod Chloride 0.9% Inj 1,000 ML IV.CONT SCH ×2 (02:31→12:33)
[2018-07-26 05:04] LABS: Hematocrit 40.1 % (39.0-51.0); Hemoglobin 13.6 gm/dL (13.0-17.0); Mean Corpuscular HGB Conc 33.9 % (32.0-36.0); Mean Corpuscular Hemoglobin 31.1 pg (27.0-34.0); Mean Corpuscular Volume 91.7 fL (80.0-100.0); Mean Platelet Volume 7.9 fL (7.0-11.0); Platelet Count 180 th/mm3 (150-450); Red Blood Count 4.37 mil/mm3 (4.50-5.90); Red Cell Distribution Width 14.1 % (11.6-17.2); White Blood Count 9.1 th/mm3 (4.0-11.0)
[2018-07-26] MEDS: Mupirocin 2% Nasal Oint Topical Syringe EACH NARE SCH ×2 (09:09→22:51)
--- NOTE | 2018-07-26 09:42 | P.PN ---
Subjective Interval history: Follow-up for CAD status post recent stent placements. Patient is currently doing well. Denies any chest pain, shortness of breath, fever or chills. Remains in good spirits regarding surgery on Saturday. Physical Exam Vital signs: Vital Signs 07/25/18 10:00 07/25/18 11:00 07/25/18 12:00 Temperature 97.3 F L Pulse Rate 46 L 50 L 52 L Respiratory Rate 16 Blood Pressure 116/66 Pulse Oximetry 100 07/25/18 13:00 07/25/18 14:00 07/25/18 15:00 Temperature 97.5 F L Pulse Rate 48 L 66 53 L Respiratory Rate 16 Blood Pressure 127/62 Pulse Oximetry 96 07/25/18 16:00 07/25/18 17:00 07/25/18 18:00 Temperature Pulse Rate 54 L 54 L 56 L Respiratory Rate Blood Pressure Pulse Oximetry 07/25/18 19:00 07/25/18 20:00 07/25/18 20:30 Temperature 97.8 F Pulse Rate 58 L 55 L Respiratory Rate 18 Blood Pressure 114/71 Pulse Oximetry 99 99 95 07/25/18 21:00 07/25/18 22:00 07/25/18 23:00 Temperature 97.8 F Pulse Rate 52 L 56 L 61 Respiratory Rate 18 Blood Pressure 109/60 Pulse Oximetry 100 07/26/18 00:00 07/26/18 01:00 07/26/18 02:00 Temperature Pulse Rate 50 L 53 L 48 L Respiratory Rate Blood Pressure Pulse Oximetry 07/26/18 03:00 07/26/18 04:00 07/26/18 05:00 Temperature 98.2 F Pulse Rate 53 L 54 L 51 L Respiratory Rate 18 Blood Pressure 107/66 Pulse Oximetry 97 07/26/18 05:55 07/26/18 07:00 Temperature Pulse Rate 55 L 58 L Respiratory Rate Blood Pressure Pulse Oximetry Intake & Output 07/25/18 07/26/18 07/26/18 18:59 06:59 18:59 Intake Total 720 / 720 210 / 210 Output Total 650 / 650 Balance 720 / 720 -440 / -440 Intake: Oral 720 / 720 210 / 210 Output: Urine 650 / 650 Other: # Voids 4 Date of Last Bowel Movement 07/22/18 # Bowel Movements 0 Narrative: GENERAL: Alert, oriented x3, NAD. SKIN: Warm and dry. HEAD: Normocephalic. EYES: No scleral icterus. No injection or drainage. NECK: Supple, trachea midline. No JVD or lymphadenopathy. CARDIOVASCULAR: Regular rate and rhythm without murmurs, gallops, or rubs. RESPIRATORY: Breath sounds equal bilaterally. No accessory muscle use. GASTROINTESTINAL: Abdomen soft, non-tender, nondistended. MUSCULOSKELETAL: No cyanosis, or edema. BACK: Nontender without obvious deformity. No CVA tenderness. Results - Labs CBC & Chem 7: 07/26/18 03:58 07/24/18 03:33 Laboratory Results - last 24 hr 07/25/18 07/25/18 07/25/18 13:26 13:26 18:00 WBC RBC Hgb Hct MCV MCH MCHC RDW Plt Count MPV PT 10.7 INR 1.1 APTT 33.6 H Urine Color Urine Clarity Urine pH Ur Specific [place] Urine Protein Urine Glucose (UA) Urine Ketones Urine Occult Blood Urine Nitrate Urine Bilirubin Urine Urobilinogen Ur Leukocyte Esterase Urine WBC Micro UA Comment Ur Microscopic Review Urine Culture Comments Nasal Screen MRSA (PCR) Not detected Blood Type O Positive Blood Type Recheck Not needed Antibody Screen Negative MTS Gel Crossmatch See Detail 07/25/18 07/25/18 07/26/18 18:00 22:32 03:57 WBC RBC Hgb Hct MCV MCH MCHC RDW Plt Count MPV PT INR APTT 38.0 H 39.0 H Urine Color Yellow Urine Clarity Clear Urine pH 6.0 Ur Specific [place] 1.014 Urine Protein Negative Urine Glucose (UA) Negative Urine Ketones Negative Urine Occult Blood Negative Urine Nitrate Negative Urine Bilirubin Negative Urine Urobilinogen 4 or greater Ur Leukocyte Esterase Negative Urine WBC 1 Micro UA Comment Culture not ind Ur Microscopic Review Not Reportable Urine Culture Comments Culture not ind Nasal Screen MRSA (PCR) Blood Type Blood Type Recheck Antibody Screen MTS Gel Crossmatch 07/26/18 03:58 WBC 9.1 RBC 4.37 L Hgb 13.6 Hct 40.1 MCV 91.7 MCH 31.1 MCHC 33.9 RDW 14.1 Plt Count 180 MPV 7.9 PT INR APTT Urine Color Urine Clarity Urine pH Ur Specific [place] Urine Protein Urine Glucose (UA) Urine Ketones Urine Occult Blood Urine Nitrate Urine Bilirubin Urine Urobilinogen Ur Leukocyte Esterase Urine WBC Micro UA Comment Ur Microscopic Review Urine Culture Comments Nasal Screen MRSA (PCR) Blood Type Blood Type Recheck Antibody Screen MTS Gel Crossmatch - Procedures Patient underwent 4 cardiac stent placement in [facility] prior to coming to [place]. Assessment and Plan - Plan Mr. Pitts is a very pleasant 68-year-old male with a history of coronary artery disease who presented to the emergency department on 07/24/2018 due to chest pressure. Patient was recently in [facility] where he developed chest pain and was subsequently diagnosed with right-sided myocardial infarction requiring 4 stents. He was discharged from the hospital on Saturday and he flew back to [place] after that. Due to intermittent chest pain that radiates to his left arm, patient decided to come to the emergency department. His troponin was 4.38 admission. Elevated troponin Chest pain Coronary artery disease Multivessel CAD. -s/p 4 stent placements in [facility]. Elevated troponins likely due to recent acute coronary syndrome Cardiology evaluated patient and recommended Cardiovascular surgery evaluation Continue aspirin 162 mg p.o. daily, Plavix discontinued. -We will continue patient on atorvastatin 40 mg at bedtime. Cardiothoracic surgery plans to perform CABG on 07/28/2018. Next linepatient is currently on heparin and Aggrastat drip Full code. Heparin drip.
--- NOTE | 2018-07-26 10:53 | XR ---
EXAM DATE: 07/26/2018 10:51 AM EST AGE/SEX: 68 years / Male INDICATIONS: Evaluate for pneumonia, pneumothorax, or communicable disease. Preop Open Heart Surgery CLINICAL DATA: This is the patient's subsequent encounter. Patient reports that signs and symptoms h ave been present for 4 - 6 days and indicates a pain score of 0/10. MEDICAL/SURGICAL HISTORY: Myocardial infarction. . Cardiac Stents COMPARISON: [facility], CHEST 1V SINGLE AP, 07/23/2018. . FINDINGS: PA and lateral views of the chest demonstrate the lungs to be symmetrically aerated without evidence of mass, infiltrate or effusion. The cardiomediastinal contours are unremarkable. The aorta is elonga stephanie. Osseous structures are intact. CONCLUSION: No acute cardiopulmonary process. Electronically signed by: Jayson Avilez MD 07/26/2018 10:52 AM EST
[2018-07-26] MEDS: Heparin Drip 25,000 UNIT/250 ML BAG IV.CONT PRN (12:32)
--- NOTE | 2018-07-26 14:08 | P.PNCA ---
Subjective Interval history: alert in nad Medications and Allergies Active Medications: Active Medications Acetaminophen (Tylenol) 650 mg PO Q4H PRN PRN Reason: Temp > 100.4 Al Hydroxide/Mg Hydroxide (Milk Of Magnesia Liq) 30 ml PO Q12H PRN PRN Reason: Mild Constipation Aspirin (Ecotrin) 162 mg PO DAILY [facility] Last Admin: 07/26/18 09:09 Dose: 162 mg Atorvastatin Calcium (Lipitor) 40 mg PO HS [facility] Last Admin: 07/25/18 20:05 Dose: 40 mg Bisacodyl (Dulcolax Supp) 10 mg RECTAL DAILY PRN PRN Reason: SEVERE CONSITIPATION Chlorhexidine Gluconate (Hibiclens 4% Topical) 1 applicatio TOPICAL [employer] WORKER [facility] Stop: 07/31/18 12:45 Sodium Chloride 77.5 ml/Papaverine HCl 60 mg/Nitroglycerin 100 mcg/Diltiazem HCl 100 mg 0 ml [employer]ATION [employer]ILY [employer] WORK[employer] [facility] Stop: 07/31/18 12:45 Sodium Chloride 1,000 ml/ (Vancomycin HCl 1,000 mg) 0 ml [employer] [facility] Stop: 07/31/18 12:46 Dextrose (D50w Vial) 50 ml IV.PUSH UNSCH PRN PRN Reason: PER HYPOGLYCEMIA PROTOCOL Sodium Chloride (Ns Inj) 1,000 mls @ 100 mls/hr IV.CONT .Q10H [facility] Last Admin: 07/26/18 12:33 Dose: Not Given Insulin Human Regular 100 unit (/ Sodium Chloride) 100 mls @ 3 mls/hr IV.CONT TITRATE PRN; Protocol PRN Reason: See Protocol Vancomycin HCl 1,250 mg/ (Sodium Chloride) 262.5 mls @ 250 mls/hr IV.SIG [employer]ILY [employer] WORK[employer] [facility] Stop: 07/31/18 12:46 Heparin Sodium/Dextrose (Heparin/D5w 25,000 U/250 Ml) 25,000 unit in 250 mls @ 0 mls/hr IV.CONT TITRATE PRN; Protocol PRN Reason: Per Protocol Last Admin: 07/26/18 12:32 Dose: 1,100 units/hr, 11 mls/hr Tirofiban/Sodium Chloride (Aggrastat Inj) 12,500 mcg in 250 mls @ 0 mls/hr IV.CONT .Q0M [facility]; Protocol Lactulose (Lactulose Liq) 30 ml PO DAILY PRN PRN Reason: SEVERE CONSITIPATION Metoprolol Tartrate (Lopressor) 12.5 mg PO [employer] [facility] Stop: 07/31/18 12:47 Mupirocin (Bactroban 2% Nasal Oint) 1 applicatio EACH NARE BID [facility] Stop: 07/29/18 12:47 Last Admin: 07/26/18 09:09 Dose: 1 applicatio Ondansetron HCl (Zofran Inj) 4 mg IV.PUSH Q6H PRN PRN Reason: NAUSEA OR VOMITING Sennosides (Senokot) 17.2 mg PO Q12H PRN PRN Reason: Moderate Constipation Sodium Chloride (Ns Flush) 2 ml IV.FLUSH UNSCH PRN PRN Reason: FLUSH AFTER USING IV ACCESS Sodium Chloride (Ns Flush) 2 ml IV.FLUSH PRN PRN PRN Reason: FLUSH AFTER USING IV ACCESS Sodium Chloride (Ns Flush) 2 ml IV.FLUSH BID [facility] Last Admin: 07/26/18 09:09 Dose: 2 ml Allergies Allergy/AdvReac Type Severity Reaction Status Date / Time penicillin G Allergy Severe Unverified 04/16/17 12:50 Home Medications Medication Instructions Recorded Confirmed Type atorvastatin [Lipitor] 40 mg PO DAILY 07/23/18 07/23/18 History esomeprazole magnesium [Nexium 07/23/18 History 24HR] Physical Exam Vital signs: Vital Signs 07/25/18 15:00 07/25/18 16:00 07/25/18 17:00 Temperature 97.5 F L Pulse Rate 53 L 54 L 54 L Respiratory Rate 16 Blood Pressure 127/62 Pulse Oximetry 96 07/25/18 18:00 07/25/18 19:00 07/25/18 20:00 Temperature 97.8 F Pulse Rate 56 L 58 L 55 L Respiratory Rate 18 Blood Pressure 114/71 Pulse Oximetry 99 99 07/25/18 20:30 07/25/18 21:00 07/25/18 22:00 Temperature Pulse Rate 52 L 56 L Respiratory Rate Blood Pressure Pulse Oximetry 95 07/25/18 23:00 07/26/18 00:00 07/26/18 01:00 Temperature 97.8 F Pulse Rate 61 50 L 53 L Respiratory Rate 18 Blood Pressure 109/60 Pulse Oximetry 100 07/26/18 02:00 07/26/18 03:00 07/26/18 04:00 Temperature 98.2 F Pulse Rate 48 L 53 L 54 L Respiratory Rate 18 Blood Pressure 107/66 Pulse Oximetry 97 07/26/18 05:00 07/26/18 05:55 07/26/18 07:00 Temperature 98.0 F Pulse Rate 51 L 55 L 53 L Respiratory Rate 20 Blood Pressure 114/65 Pulse Oximetry 98 07/26/18 08:00 07/26/18 09:00 07/26/18 10:00 Temperature Pulse Rate 53 L 50 L 53 L Respiratory Rate Blood Pressure Pulse Oximetry 07/26/18 10:24 07/26/18 11:00 07/26/18 12:00 Temperature 98.3 F Pulse Rate 55 L 55 L Respiratory Rate 20 Blood Pressure 118/60 Pulse Oximetry 97 98 07/26/18 12:31 Temperature Pulse Rate 50 L Respiratory Rate Blood Pressure Pulse Oximetry Intake & Output 07/25/18 07/26/18 07/26/18 18:59 06:59 18:59 Intake Total 720 / 720 210 / 210 250 / 250 Output Total 650 / 650 Balance 720 / 720 -440 / -440 250 / 250 Weight 171.4 kg Intake: IV 250 / 250 Heparin/D5W 25,000 U/250 mL 25, 250 / 250 000 unit In 250 ml @ Per Protocol IV.CONT TITRATE PRN Rx #:[id number] Oral 720 / 720 210 / 210 Output: Urine 650 / 650 Other: # Voids 4 Date of Last Bowel Movement 07/22/18 # Bowel Movements 0 - Constitutional no acute distress - Routine HEENT Exam Head: Present: normocephalic - Routine Neck Exam Present: supple - Routine Respiratory Exam Present: CTA bilaterally - Routine Cardiovascular Exam Present: S1, S2 - Routine Abdominal Exam Present: soft - Routine Extremities Exam Comments: no gladys Results 07/26/18 03:58 07/24/18 03:33 Cardiac Enzymes 07/25/18 07/25/18 Range/Units 05:26 05:26 AST 20 (15-37) U/L B-Natriuretic Peptide 178 H (0-100) pg/mL Coagulation 07/25/18 07/25/18 07/25/18 Range/Units 05:26 13:26 22:32 PT 10.7 (9.8-11.6) sec APTT 33.6 H 38.0 H (23.4-31.7) sec B-Natriuretic Peptide 178 H (0-100) pg/mL 07/26/18 07/26/18 Range/Units 03:57 10:50 PT (9.8-11.6) sec APTT 39.0 H 42.3 H (23.4-31.7) sec B-Natriuretic Peptide (0-100) pg/mL Lipids 07/25/18 Range/Units 05:26 Triglycerides 108 (42-150) mg/dL Cholesterol 107 L (120-200) mg/dL HDL Cholesterol 34.3 L (40.0-60.0) mg/dL Cholesterol/HDL Ratio 3.11 Ratio CBC 07/25/18 07/26/18 Range/Units 05:26 03:58 WBC 8.7 9.1 (4.0-11.0) th/mm3 RBC 4.12 L 4.37 L (4.50-5.90) mil/mm3 Hgb 12.8 L 13.6 (13.0-17.0) gm/dL Hct 37.0 L 40.1 (39.0-51.0) % Plt Count 172 180 (150-450) th/mm3 Comprehensive Metabolic Panel 07/25/18 Range/Units 05:26 Direct Bilirubin 0.2 (0.0-0.2) mg/dL Indirect Bilirubin 0.3 (0.0-0.8) mg/dL AST 20 (15-37) U/L ALT 33 (12-78) U/L Alkaline Phosphatase 85 (45-117) U/L Total Protein 6.5 D (6.4-8.2) g/dL Albumin 2.9 L (3.4-5.0) g/dL Intake and Output 07/25/18 07/26/18 07/26/18 22:59 06:59 14:59 Intake Total 720 / 720 210 / 210 250 / 250 Output Total 650 / 650 Balance 720 / 720 -440 / -440 250 / 250 Intake: IV 250 / 250 Heparin/D5W 25,000 U/250 mL 25, 250 / 250 000 unit In 250 ml @ Per Protocol IV.CONT TITRATE PRN Rx #:[id number] Oral 720 / 720 210 / 210 Output: Urine 650 / 650 Other: # Voids 4 Date of Last Bowel Movement 07/22/18 # Bowel Movements 0 Weight 171.4 kg - Imaging and Cardiology Imaging: Impressions Chest X-Ray 07/26/18 00:00 CONCLUSION: No acute cardiopulmonary process. Assessment and Plan - Assessment (1) Coronary artery disease Code(s): I25.10 - Atherosclerotic heart disease of [place] coronary artery without angina pectoris Status: Acute Plan: 1.) CAD - assymptomatic, continue aspirin, tirofoban, lipitor. Plavix held, cabg per Dr Morales 07/28/18 (1) Coronary artery disease Qualifiers: Coronary Disease-Associated Artery/Lesion type: [place] artery [place] vs. transplanted heart: [place] heart Associated angina: with unstable angina Qualified Code(s): I25.110 - Atherosclerotic heart disease of [place] coronary artery with unstable angina pectoris
--- NOTE | 2018-07-26 14:23 | US ---
EXAM DATE: 07/26/2018 2:17 PM EST AGE/SEX: 68 years / Male INDICATIONS: Weakness. CLINICAL DATA: This is the patient's initial encounter. Patient reports that signs and symptoms have been present for 1 day and indicates a pain score of 0/10. MEDICAL/SURGICAL HISTORY: . [place]. Pancreatitis. Former smoker. . Coronary artery stent. Rotat or cuff surgery. COMPARISON: No prior exams available for comparison. VELOCITY PARAMETERS: ICA/CCA Ratio: Right 8.8 , Left 7.4 ICA: Right 665 cm/sec, Left 566 cm/sec CCA: Right 75 cm/sec, Left 77 cm/sec ECA: Right 184 cm/sec, Left 305 cm/sec Vertebral: Right 47 cm/sec antegrade, Left 79 cm/sec antegrade FINDINGS: Right Carotid: Predominantly hypoechoic plaque. Significantly elevated peak systolic velocities with associated spectral broadening. Left Carotid: Probably hypoechoic plaque. Significantly elevated peak velocities with associated spe ctral broadening. The waveforms are within normal limits. Other: None. CONCLUSION: 1. 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 2. Left Internal Carotid Artery: Findings indicate near occlusion. Electronically signed by: Saroj Crooks MD 07/26/2018 2:22 PM EST
--- NOTE | 2018-07-26 14:37 | US ---
EXAM DATE: 07/26/2018 2:32 PM EST AGE/SEX: 68 years / Male INDICATIONS: Status post catheterization, preop cardiac surgery. CLINICAL DATA: This is the patient's initial encounter. Patient reports that signs and symptoms have been present for 1 day and indicates a pain score of 0/10. MEDICAL/SURGICAL HISTORY: . Pancreatitis. [place]. Former smoker. . Coronary artery stent. Rotato r cuff surgery. COMPARISON: . TECHNIQUE: Venous ultrasound of both lower extremities was performed from the inguinal ligament to t he proximal calf. Real-time, color Doppler and spectral tracing, compression and augmentation techni ques were used. FINDINGS: Right Leg: Normal compression of the deep venous system from the inguinal region to the proximal kristine f. No echogenic clot is seen. Normal response of the venous system to augmentation and respiration. Left Leg: Normal compression of the deep venous system from the inguinal region to the proximal calf . No echogenic clot is seen. Normal response of the venous system to augmentation and respiration. Other: None. CONCLUSION: 1. No sonographic evidence for lower extremity DVT. Electronically signed by: Saroj Crooks MD 07/26/2018 2:35 PM EST
--- NOTE | 2018-07-26 14:43 | US ---
EXAM DATE: 07/26/2018 2:36 PM EST AGE/SEX: 68 years / Male INDICATIONS: Preop cardiac surgery. CLINICAL DATA: This is the patient's initial encounter. Patient reports that signs and symptoms have been present for 1 day and indicates a pain score of 0/10. MEDICAL/SURGICAL HISTORY: None. Pancreatitis. [place]. Former smoker. . Coronary artery stent. Ro tator cuff surgery. COMPARISON: [facility] [place], [place] VENOUS DOPPLER LEG BI, 07/26/2018. . MEASUREMENTS: RIGHT THIGH: Proximal:__4 mm Mid:__ 3 mm Distal:__2 mm LEFT THIGH: Proximal:__5 mm Mid:__4 mm Distal:__2 mm RIGHT CALF: Proximal:__2 mm Mid:__2 mm Distal:__2 mm LEFT CALF: Proximal:__3 mm Mid:__2 mm Distal:__2 mm FINDINGS: The venous system of the lower extremities are patent by color Doppler imaging. Measurements of the leg veins (in mm) are listed above. CONCLUSION: 1. Lower extremity venous mapping, as above. Electronically signed by: Saroj Crooks MD 07/26/2018 2:41 PM EST
[2018-07-27] MEDS: Sod Chloride 0.9% Inj 1,000 ML IV.CONT SCH ×2 (01:40→09:57)
[2018-07-27 05:13] LABS: Hematocrit 37.6 % (39.0-51.0); Hemoglobin 12.8 gm/dL (13.0-17.0); Mean Corpuscular HGB Conc 34.2 % (32.0-36.0); Mean Corpuscular Hemoglobin 31.2 pg (27.0-34.0); Mean Corpuscular Volume 91.3 fL (80.0-100.0); Platelet Count 190 th/mm3 (150-450); Red Blood Count 4.11 mil/mm3 (4.50-5.90); Red Cell Distribution Width 13.5 % (11.6-17.2)
[2018-07-27] MEDS: Mupirocin 2% Nasal Oint Topical Syringe EACH NARE SCH ×2 (09:57→20:47)
--- NOTE | 2018-07-27 12:48 | P.PN ---
Subjective Interval history: Follow-up for CAD status post recent stent placements. Patient is currently doing well. No chest pain, shortness of breath, fever or chills. Physical Exam Vital signs: Vital Signs 07/26/18 14:00 07/26/18 15:00 07/26/18 16:00 Temperature 98.1 F Pulse Rate 55 L 50 L 50 L Respiratory Rate 19 Blood Pressure 102/69 Pulse Oximetry 98 07/26/18 16:27 07/26/18 16:34 07/26/18 19:00 Temperature 98.1 F Pulse Rate 53 L 52 L 58 L Respiratory Rate 16 Blood Pressure 140/70 Pulse Oximetry 100 07/26/18 20:00 07/26/18 21:00 07/26/18 22:00 Temperature Pulse Rate 48 L 48 L 54 L Respiratory Rate Blood Pressure Pulse Oximetry 94 L 07/26/18 23:00 07/27/18 00:00 07/27/18 01:00 Temperature 99.2 F Pulse Rate 51 L 52 L 52 L Respiratory Rate 16 Blood Pressure 119/59 L Pulse Oximetry 98 07/27/18 02:00 07/27/18 03:00 07/27/18 04:00 Temperature 99.1 F Pulse Rate 52 L 50 L 64 Respiratory Rate 16 Blood Pressure 106/59 L Pulse Oximetry 100 07/27/18 05:00 07/27/18 06:00 07/27/18 07:00 Temperature 98.9 F Pulse Rate 48 L 48 L 56 L Respiratory Rate 17 Blood Pressure 110/63 Pulse Oximetry 100 07/27/18 08:00 07/27/18 09:00 07/27/18 09:55 Temperature Pulse Rate 53 L 55 L Respiratory Rate Blood Pressure Pulse Oximetry 99 07/27/18 10:00 07/27/18 11:00 07/27/18 11:45 Temperature 98.7 F Pulse Rate 60 50 L 51 L Respiratory Rate 17 Blood Pressure 120/78 Pulse Oximetry 100 Intake & Output 07/26/18 07/27/18 07/27/18 18:59 06:59 18:59 Intake Total 1050 / 1050 240 / 240 Output Total 1100 / 1100 500 / 500 Balance -50 / -50 -260 / -260 Weight 164.2 kg Intake: IV 250 / 250 Heparin/D5W 25,000 U/250 mL 25, 250 / 250 000 unit In 250 ml @ Per Protocol IV.CONT TITRATE PRN Rx #:[id number] Oral 800 / 800 240 / 240 Output: Urine 1100 / 1100 500 / 500 Narrative: GENERAL: Alert, oriented x3, NAD. SKIN: Warm and dry. HEAD: Normocephalic. EYES: No scleral icterus. No injection or drainage. NECK: Supple, trachea midline. No JVD or lymphadenopathy. CARDIOVASCULAR: Regular rate and rhythm without murmurs, gallops, or rubs. RESPIRATORY: Breath sounds equal bilaterally. No accessory muscle use. GASTROINTESTINAL: Abdomen soft, non-tender, nondistended. MUSCULOSKELETAL: No cyanosis, or edema. BACK: Nontender without obvious deformity. No CVA tenderness. Results - Labs CBC & Chem 7: 07/27/18 04:27 07/24/18 03:33 Laboratory Results - last 24 hr 07/26/18 07/27/18 07/27/18 17:05 04:27 04:40 WBC 10.0 RBC 4.11 L Hgb 12.8 L Hct 37.6 L MCV 91.3 MCH 31.2 MCHC 34.2 RDW 13.5 Plt Count 190 MPV 8.0 APTT 42.0 H 43.3 H - Imaging Impressions Carotid Doppler Study 07/26/18 00:00 CONCLUSION: 1. 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 2. Left Internal Carotid Artery: Findings indicate near occlusion. Lower Extremity Ultrasound 07/26/18 00:00 CONCLUSION: 1. Lower extremity venous mapping, as above. Venous Doppler Study 07/26/18 00:00 CONCLUSION: 1. No sonographic evidence for lower extremity DVT. - Procedures Patient underwent 4 cardiac stent placement in [facility] prior to coming to [place]. Assessment and Plan - Plan Mr. Pitts is a very pleasant 68-year-old male with a history of coronary artery disease who presented to the emergency department on 07/24/2018 due to chest pressure. Patient was recently in [facility] where he developed chest pain and was subsequently diagnosed with right-sided myocardial infarction requiring 4 stents. He was discharged from the hospital on Saturday and he flew back to [place] after that. Due to intermittent chest pain that radiates to his left arm, patient decided to come to the emergency department. His troponin was 4.38 admission. Elevated troponin Chest pain Coronary artery disease Multivessel CAD. -s/p 4 stent placements in [facility]. Elevated troponins likely due to recent acute coronary syndrome Cardiology evaluated patient and recommended Cardiovascular surgery evaluation Continue aspirin 162 mg p.o. daily, Plavix discontinued. -We will continue patient on atorvastatin 40 mg at bedtime. Cardiothoracic surgery plans to perform CABG on 07/28/2018. patient is currently on heparin and Aggrastat drip Full code. Heparin drip. 07/27/2018: No major changes in management. Surgery tomorrow.
--- NOTE | 2018-07-27 14:34 | P.PNCA ---
Subjective Interval history: assymptomatic in nad Medications and Allergies Active Medications: Active Medications Acetaminophen (Tylenol) 650 mg PO Q4H PRN PRN Reason: Temp > 100.4 Al Hydroxide/Mg Hydroxide (Milk Of Magnesia Liq) 30 ml PO Q12H PRN PRN Reason: Mild Constipation Aspirin (Ecotrin) 162 mg PO DAILY [facility] Last Admin: 07/27/18 09:57 Dose: 162 mg Atorvastatin Calcium (Lipitor) 40 mg PO HS [facility] Last Admin: 07/26/18 22:51 Dose: 40 mg Bisacodyl (Dulcolax Supp) 10 mg RECTAL DAILY PRN PRN Reason: SEVERE CONSITIPATION Chlorhexidine Gluconate (Hibiclens 4% Topical) 1 applicatio [employer]ORATORY DIRECTOR [facility] Stop: 07/31/18 12:45 Sodium Chloride 77.5 ml/Papaverine HCl 60 mg/Nitroglycerin 100 mcg/Diltiazem HCl 100 mg 0 ml IRRIGATION [employer]OR[employer] DIRECT[employer] [facility] Stop: 07/31/18 12:45 Sodium Chloride 1,000 ml/ (Vancomycin HCl 1,000 mg) 0 ml [employer] DIRECT[employer] [facility] Stop: 07/31/18 12:46 Dextrose (D50w Vial) 50 ml IV.PUSH UNSCH PRN PRN Reason: PER HYPOGLYCEMIA PROTOCOL Sodium Chloride (Ns Inj) 1,000 mls @ 100 mls/hr IV.CONT .Q10H [facility] Last Admin: 07/27/18 09:57 Dose: 30 mls/hr Insulin Human Regular 100 unit (/ Sodium Chloride) 100 mls @ 3 mls/hr IV.CONT TITRATE PRN; Protocol PRN Reason: See Protocol Vancomycin HCl 1,250 mg/ (Sodium Chloride) 262.5 mls @ 250 mls/hr IV.SIG [employer]ORATORY DIRECTOR [facility] Stop: 07/31/18 12:46 Heparin Sodium/Dextrose (Heparin/D5w 25,000 U/250 Ml) 25,000 unit in 250 mls @ 0 mls/hr IV.CONT TITRATE PRN; Protocol PRN Reason: Per Protocol Last Admin: 07/26/18 12:32 Dose: 1,100 units/hr, 11 mls/hr Tirofiban/Sodium Chloride (Aggrastat Inj) 12,500 mcg in 250 mls @ 0 mls/hr IV.CONT .Q0M [facility]; Protocol Lactulose (Lactulose Liq) 30 ml PO DAILY PRN PRN Reason: SEVERE CONSITIPATION Metoprolol Tartrate (Lopressor) 12.5 mg PO [employer] DIRECT[employer] [facility] Stop: 07/31/18 12:47 Mupirocin (Bactroban 2% Nasal Oint) 1 applicatio EACH NARE BID [facility] Stop: 07/29/18 12:47 Last Admin: 07/27/18 09:57 Dose: 1 applicatio Ondansetron HCl (Zofran Inj) 4 mg IV.PUSH Q6H PRN PRN Reason: NAUSEA OR VOMITING Sennosides (Senokot) 17.2 mg PO Q12H PRN PRN Reason: Moderate Constipation Sodium Chloride (Ns Flush) 2 ml IV.FLUSH UNSCH PRN PRN Reason: FLUSH AFTER USING IV ACCESS Sodium Chloride (Ns Flush) 2 ml IV.FLUSH PRN PRN PRN Reason: FLUSH AFTER USING IV ACCESS Sodium Chloride (Ns Flush) 2 ml IV.FLUSH BID [facility] Last Admin: 07/27/18 09:58 Dose: 2 ml Allergies Allergy/AdvReac Type Severity Reaction Status Date / Time penicillin G Allergy Severe Unverified 04/16/17 12:50 Home Medications Medication Instructions Recorded Confirmed Type atorvastatin [Lipitor] 40 mg PO DAILY 07/23/18 07/23/18 History esomeprazole magnesium [Nexium 07/23/18 History 24HR] Physical Exam Vital signs: Vital Signs 07/26/18 15:00 07/26/18 16:00 07/26/18 16:27 Temperature 98.1 F Pulse Rate 50 L 50 L 53 L Respiratory Rate 19 Blood Pressure 102/69 Pulse Oximetry 98 07/26/18 16:34 07/26/18 19:00 07/26/18 20:00 Temperature 98.1 F Pulse Rate 52 L 58 L 48 L Respiratory Rate 16 Blood Pressure 140/70 Pulse Oximetry 100 94 L 07/26/18 21:00 07/26/18 22:00 07/26/18 23:00 Temperature 99.2 F Pulse Rate 48 L 54 L 51 L Respiratory Rate 16 Blood Pressure 119/59 L Pulse Oximetry 98 07/27/18 00:00 07/27/18 01:00 07/27/18 02:00 Temperature Pulse Rate 52 L 52 L 52 L Respiratory Rate Blood Pressure Pulse Oximetry 07/27/18 03:00 07/27/18 04:00 07/27/18 05:00 Temperature 99.1 F Pulse Rate 50 L 64 48 L Respiratory Rate 16 Blood Pressure 106/59 L Pulse Oximetry 100 07/27/18 06:00 07/27/18 07:00 07/27/18 08:00 Temperature 98.9 F Pulse Rate 48 L 56 L 53 L Respiratory Rate 17 Blood Pressure 110/63 Pulse Oximetry 100 07/27/18 09:00 07/27/18 09:55 07/27/18 10:00 Temperature Pulse Rate 55 L 60 Respiratory Rate Blood Pressure Pulse Oximetry 99 07/27/18 11:00 07/27/18 11:45 Temperature 98.7 F Pulse Rate 50 L 51 L Respiratory Rate 17 Blood Pressure 120/78 Pulse Oximetry 100 Intake & Output 07/26/18 07/27/18 07/27/18 18:59 06:59 18:59 Intake Total 1050 / 1050 240 / 240 Output Total 1100 / 1100 500 / 500 Balance -50 / -50 -260 / -260 Weight 164.2 kg Intake: IV 250 / 250 Heparin/D5W 25,000 U/250 mL 25, 250 / 250 000 unit In 250 ml @ Per Protocol IV.CONT TITRATE PRN Rx #:[id number] Oral 800 / 800 240 / 240 Output: Urine 1100 / 1100 500 / 500 - Constitutional no acute distress - Routine HEENT Exam Head: Present: normocephalic - Routine Neck Exam Present: supple - Routine Respiratory Exam Present: CTA bilaterally - Routine Cardiovascular Exam Present: S1, S2 - Routine Abdominal Exam Present: soft - Routine Extremities Exam Comments: no gladys Results 07/27/18 04:27 07/24/18 03:33 Coagulation 07/25/18 07/26/18 07/26/18 Range/Units 22:32 03:57 10:50 APTT 38.0 H 39.0 H 42.3 H (23.4-31.7) sec 07/26/18 07/27/18 Range/Units 17:05 04:40 APTT 42.0 H 43.3 H (23.4-31.7) sec CBC 07/26/18 07/27/18 Range/Units 03:58 04:27 WBC 9.1 10.0 (4.0-11.0) th/mm3 RBC 4.37 L 4.11 L (4.50-5.90) mil/mm3 Hgb 13.6 12.8 L (13.0-17.0) gm/dL Hct 40.1 37.6 L (39.0-51.0) % Plt Count 180 190 (150-450) th/mm3 Intake and Output 07/26/18 07/27/18 07/27/18 22:59 06:59 14:59 Intake Total 800 / 800 240 / 240 Output Total 1100 / 1100 500 / 500 Balance -300 / -300 -260 / -260 Intake: Oral 800 / 800 240 / 240 Output: Urine 1100 / 1100 500 / 500 Other: Weight 164.2 kg - Imaging and Cardiology Imaging: Impressions Carotid Doppler Study 07/26/18 00:00 CONCLUSION: 1. 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 2. Left Internal Carotid Artery: Findings indicate near occlusion. Chest X-Ray 07/26/18 00:00 CONCLUSION: No acute cardiopulmonary process. Lower Extremity Ultrasound 07/26/18 00:00 CONCLUSION: 1. Lower extremity venous mapping, as above. Venous Doppler Study 07/26/18 00:00 CONCLUSION: 1. No sonographic evidence for lower extremity DVT. Assessment and Plan - Assessment (1) Coronary artery disease Code(s): I25.10 - Atherosclerotic heart disease of [place] coronary artery without angina pectoris Status: Acute Plan: 1.) CAD - assymptomatic, continue aspirin, tirofoban, lipitor. Plavix held, cabg per Dr Morales 07/28/18 (1) Coronary artery disease Qualifiers: Coronary Disease-Associated Artery/Lesion type: [place] artery [place] vs. transplanted heart: [place] heart Associated angina: with unstable angina Qualified Code(s): I25.110 - Atherosclerotic heart disease of [place] coronary artery with unstable angina pectoris
[2018-07-27] MEDS: Heparin Drip 25,000 UNIT/250 ML BAG IV.CONT PRN (18:06)
[2018-07-28 05:48] LABS: Hematocrit 36.5 % (39.0-51.0); Hemoglobin 12.5 gm/dL (13.0-17.0); Mean Corpuscular HGB Conc 34.3 % (32.0-36.0); Mean Corpuscular Hemoglobin 31.1 pg (27.0-34.0); Mean Corpuscular Volume 90.5 fL (80.0-100.0); Platelet Count 191 th/mm3 (150-450); Red Blood Count 4.03 mil/mm3 (4.50-5.90); Red Cell Distribution Width 13.9 % (11.6-17.2); White Blood Count 9.5 th/mm3 (4.0-11.0)
[2018-07-28] MEDS: Mupirocin 2% Nasal Oint Topical Syringe EACH NARE SCH ×2 (08:46→23:18)
--- NOTE | 2018-07-28 09:47 | P.PNFP ---
Subjective Interval history: headed towards surgery. no complaints. seen with nursing. Results - Labs Result diagrams: 07/28/18 05:06 07/24/18 03:33 Abnormal lab results 07/28/18 Range/Units 05:06 RBC 4.03 L (4.50-5.90) mil/mm3 Hgb 12.5 L (13.0-17.0) gm/dL Hct 36.5 L (39.0-51.0) % Short CBC 07/28/18 Range/Units 05:06 WBC 9.5 (4.0-11.0) th/mm3 Hgb 12.5 L (13.0-17.0) gm/dL Hct 36.5 L (39.0-51.0) % Plt Count 191 (150-450) th/mm3 Physical Exam Vital signs: Vital Signs 07/27/18 09:55 07/27/18 10:00 07/27/18 11:00 Temperature 98.7 F Pulse Rate 60 50 L Respiratory Rate 17 Blood Pressure 120/78 Pulse Oximetry 99 100 07/27/18 11:45 07/27/18 13:00 07/27/18 14:00 Temperature Pulse Rate 51 L 55 L 50 L Respiratory Rate Blood Pressure Pulse Oximetry 07/27/18 15:00 07/27/18 16:00 07/27/18 17:00 Temperature 98.3 F Pulse Rate 49 L 63 56 L Respiratory Rate 19 Blood Pressure 119/67 Pulse Oximetry 100 07/27/18 18:00 07/27/18 19:00 07/27/18 20:00 Temperature 97.7 F Pulse Rate 60 56 L 55 L Respiratory Rate 17 Blood Pressure 132/62 Pulse Oximetry 100 07/27/18 21:00 07/27/18 22:00 07/27/18 23:00 Temperature 98.9 F Pulse Rate 67 56 L 57 L Respiratory Rate 17 Blood Pressure 120/69 Pulse Oximetry 96 07/28/18 00:00 07/28/18 01:00 07/28/18 02:00 Temperature Pulse Rate 55 L 53 L 51 L Respiratory Rate Blood Pressure Pulse Oximetry 07/28/18 03:00 07/28/18 04:00 07/28/18 05:00 Temperature 98.9 F Pulse Rate 50 L 50 L 52 L Respiratory Rate 17 Blood Pressure 130/65 Pulse Oximetry 96 07/28/18 05:40 07/28/18 07:00 Temperature 98.2 F Pulse Rate 49 L 61 Respiratory Rate 18 Blood Pressure 104/57 L Pulse Oximetry 97 Intake & Output 07/27/18 07/28/18 07/28/18 18:59 06:59 18:59 Intake Total 1600 / 1600 240 / 240 Output Total 1150 / 1150 1000 / 1000 Balance 450 / 450 -760 / -760 Weight 73.8 kg Intake: IV 950 / 950 Heparin/D5W 25,000 U/250 mL 25, 250 / 250 000 unit In 250 ml @ Per Protocol IV.CONT TITRATE PRN Rx #:[id number] NS Inj 1,000 ML @ 100 mls/hr IV 700 / 700 .CONT .Q10H [facility] Rx#:[id number] Oral 650 / 650 240 / 240 Output: Urine 1150 / 1150 1000 / 1000 Other: Date of Last Bowel Movement 07/27/18 07/27/18 # Bowel Movements 3 - Constitutional no acute distress, average body habitus - Routine HEENT Exam Head: Present: normocephalic Eye: Present: EOMI, PERRL - Routine Neck Exam Present: supple - Routine Respiratory Exam Present: CTA bilaterally - Routine Cardiovascular Exam Present: RRR, S1, S2 - Routine Abdominal Exam Present: soft, normoactive bowel sounds - Routine Skin Exam Present: intact - Routine Neurological Exam Present: alert, oriented X3, moving all extremities, normal speech - Detailed Neurological Exam: Coma Scale Eye Opening: Spontaneous Verbal Response: Oriented Motor Response: Obey commands [place] Coma Scale Total: 15 - Routine Psychiatric Exam Present: normal affect Assessment and Plan - Assessment (1) Coronary artery disease Code(s): I25.10 - Atherosclerotic heart disease of [place] coronary artery without angina pectoris Status: Acute (2) ST elevation (STEMI) myocardial infarction Code(s): I21.3 - ST elevation (STEMI) myocardial infarction of unspecified site Status: Acute - Assessment and Plan A/P- 68-year-old male with a history of coronary artery disease who presented to the emergency department on 07/24/2018 due to chest pressure. Patient was recently in [facility] where he developed chest pain and was subsequently diagnosed with right-sided myocardial infarction requiring 4 stents. He was discharged from the hospital on Saturday and he flew back to [place] after that. Due to intermittent chest pain that radiates to his left arm, patient decided to come to the emergency department. His troponin was 4.38 admission. Elevated troponin: To CT surgery now, asa, plavix off, heparin drip, Chest pain Multivessel CAD. HPLD: statin COPD Smoker: discussed cessation Anemia, chronic dz Pancreatitis, recurrent hx (1) Coronary artery disease Qualifiers: Coronary Disease-Associated Artery/Lesion type: [place] artery [place] vs. transplanted heart: [place] heart Associated angina: with unstable angina Qualified Code(s): I25.110 - Atherosclerotic heart disease of [place] coronary artery with unstable angina pectoris (2) ST elevation (STEMI) myocardial infarction Qualifiers: Involved coronary artery: right coronary artery Qualified Code(s): I21.11 - ST elevation (STEMI) myocardial infarction involving right coronary artery
--- NOTE | 2018-07-28 11:50 | P.PNCV ---
- Note Subjective/Hospital Course: 68-year-old gentleman, who is a [place] citizen, who lives in [facility]. On 2017, he had an inferior ST-elevation myocardial infarction, while surfing . He was taken to a local hospital and received thrombolytic therapy which was not successful. He was taken to a private hospital in [place] where he underwent LHC and found to have RCA occlusion. He underwent stent placement x 4 in the RCA to restore flow. The embedded linux developer there also recommended intervening on the LAD as a staged procedure, but the patient declined further treatment secondart to the extreme out of pocket costs. He immediately travelled back to [facility] and presented to Dr. Madrid for further treatment. He denies chest pain, dyspnea, palpitations, fever, dizziness, diaphoresis. PAST MEDICAL HISTORY: Includes myocardial infarction, pancreatitis, rotator cuff surgery.underwent a PCI through the right radial approach with 4 stents placed in the right coronary artery. Angiography also revealed a high-grade ostial LAD lesion. ECHO: EF 55 % 07/28 pt scheduled for CABG today / second case Objective: Vital Signs - 24 hr 07/27/18 11:45 07/27/18 13:00 07/27/18 14:00 Temperature Pulse Rate 51 L 55 L 50 L Respiratory Rate Blood Pressure Pulse Oximetry 07/27/18 15:00 07/27/18 16:00 07/27/18 17:00 Temperature 98.3 F Pulse Rate 49 L 63 56 L Respiratory Rate 19 Blood Pressure 119/67 Pulse Oximetry 100 07/27/18 18:00 07/27/18 19:00 07/27/18 20:00 Temperature 97.7 F Pulse Rate 60 56 L 55 L Respiratory Rate 17 Blood Pressure 132/62 Pulse Oximetry 100 07/27/18 21:00 07/27/18 22:00 07/27/18 23:00 Temperature 98.9 F Pulse Rate 67 56 L 57 L Respiratory Rate 17 Blood Pressure 120/69 Pulse Oximetry 96 07/28/18 00:00 07/28/18 01:00 07/28/18 02:00 Temperature Pulse Rate 55 L 53 L 51 L Respiratory Rate Blood Pressure Pulse Oximetry 07/28/18 03:00 07/28/18 04:00 07/28/18 05:00 Temperature 98.9 F Pulse Rate 50 L 50 L 52 L Respiratory Rate 17 Blood Pressure 130/65 Pulse Oximetry 96 07/28/18 05:40 07/28/18 07:00 07/28/18 08:00 Temperature 98.2 F Pulse Rate 49 L 61 50 L Respiratory Rate 18 Blood Pressure 104/57 L Pulse Oximetry 97 07/28/18 09:00 07/28/18 10:00 Temperature Pulse Rate 52 L 46 L Respiratory Rate Blood Pressure Pulse Oximetry Labs: Laboratory Results - last 12 hr 07/28/18 07/28/18 05:06 10:43 WBC 9.5 RBC 4.03 L Hgb 12.5 L Hct 36.5 L MCV 90.5 MCH 31.1 MCHC 34.3 RDW 13.9 Plt Count 191 MPV 8.0 Blood Type O Positive MTS Gel Crossmatch See Detail Result Diagrams: 07/28/18 05:06 07/24/18 03:33 - Plan (1) ST elevation (STEMI) myocardial infarction (2) Coronary artery disease (1) ST elevation (STEMI) myocardial infarction Qualifiers: Involved coronary artery: right coronary artery Qualified Code(s): I21.11 - ST elevation (STEMI) myocardial infarction involving right coronary artery (2) Coronary artery disease Qualifiers: Coronary Disease-Associated Artery/Lesion type: [place] artery [place] vs. transplanted heart: [place] heart Associated angina: with unstable angina Qualified Code(s): I25.110 - Atherosclerotic heart disease of [place] coronary artery with unstable angina pectoris
--- NOTE | 2018-07-28 12:01 | P.DCO ---
- Diagnosis (1) S/P CABG (coronary artery bypass graft) Status: Acute (2) Coronary artery disease Status: Acute (3) ST elevation (STEMI) myocardial infarction Status: Acute (4) Chronic anemia Status: Chronic (5) Hx of pancreatitis Status: Chronic (6) Hyperlipidemia Status: Chronic - Home Health Nursing Order: Medical education, Signs/symptoms of disease process, Wound care and dressing changes, Nursing assessment with vital signs Instructions: Heart and Vascular Surgery patients *Special attention to sternal dressing Mandatory frequency Assess and evaluation, 4 days in a row The next week 3X week 2 times a week for 4 weeks 1 time a week for 5 weeks Schedule Heart and Vascular patients for full 60 day certification period Initial visit Review Open Heart Surgery Discharge Instructions (Sternal precautions, Activity, Elastic hose, Incision care, Driving, Incentive spirometry, Smoking, [place], Work and other) Need Betadine to paint incision Medication reconciliation Importance of follow up care/ check on appointments Make calendar record temperature daily When to call [facility] nurse, review instructions, phone list Incentive Spirometry, demonstration Visit 1- Begin discharge instruction for patient family and/ or caregiver using teach back method- Signs and symptoms of infection Disease characteristics Medicines and side effects Foods and nutrition/ appetite Infection control/ hand washing/ hygiene Visit 2- Continue teaching Discharge instructions- include additional information on smoking cessation , sternal dressing (sternal vac) Visit 3- Continue teaching- Cough and deep breathing, incision monitoring. Choose my plate Visit 4- Continue teaching- Discuss limitations Discuss how they are feeling Discuss progress toward goals Remaining visits- continue teaching and monitoring For any questions please call : Saturday 8am-5pm Heart & Vascular Surgery Office ( Dr. White & Dr. Morales), After Hours / Nights (5pm -8am) Weekends and Holidays Please call [facility] Cardiac Intermediate [facility] Unit (CIC) Charge Nurse PREVENA Single Use Negative Wound Therapy System Caregiver Instruction Sheet 1. A Prevena dressing system was applied to the chest incision during surgery , to promote wound healing. It works via a suction device (negative pressure wound therapy) to remove low to moderate levels of exudate (drainage) and infectious materials. We recommend that the device stay in place for up to seven days, from day of surgery. 2. Day of Surgery___/ Day of Removal ____08/04/18 3. The dressing should only be removed by a health nonfarm animal caretaker. Please arrange removal of device to coincide with Home Health visit and or with Nursing staff at Rehab 4. If skin reddening or irritation of skin occurs, or excessive drainage, please notify the Cardiovascular Surgeons office at [phone]. 5. Light showering is permissible; however the pump should be disconnected and placed in safe location, where it will not get wet. The dressing should not be exposed to direct spray or submerged in water. No bath tub / shower only. Ensure the end of the tubing attached to the dressing is facing down so that water does not enter the top of the tube. 6. To remove Prevena dressing: press purple button to turn off device / remove the suction. Then disconnect the tubing from the pump. The fixation strips should be stretched away from the skin and the dressing lifted at one corner and peeled back until it has been fully removed. 7. After removal, it is ok to shower daily using liquid dial soap and clean wash cloth, rinse and pat dry, and leave incision open to air dry. For any concerns regarding Prevena dressing, and or wounds, please contact Flor Robles, patient navigator at [phone] or notify the Cardiovascular Surgeons office at [phone]. Incentive spirometry Q1 hr x 10, while awake, also use acapella device hourly whole awake Sternal Breast Bone Precautions: NO pushing or pulling, ( pt must use sternal pillow to support chest with all activities and with coughing ( takes up to 3 months breast bone to heal ) All females to wear sternal bra , launder as needed Daily incision care: ok to shower daily, no tub bath. Wash all incisions with liquid dial soap, clean wash cloth to each site, rinse and pat dry. Observe for any signs of infection, such as drainage which is dark yellow, hernandez, green or foul smelling. Immediately report to the surgeon any drainage from the chest incision, or legs, and for any abnormal drainage from the chest tube sites. Notify surgeon if any temp >101.5 degrees F. When specialty dressing removed/ or if you do not have one, continue to shower daily as above, then rinse and pat incision dry and paint with betadine daily x 5 days. Allow steri strips to fall off if you have any. Avoid lotions, creams, salves, oils, etc. for the first month Please see attached forms for additional instructions regarding post Open Heart specialty wound vacuum dressings. BARNEY or Prevena , Dressing to be removed by Nursing staff on __08/04/[address] Morales patients , please obtain CBC, BMP, PA & Lat CXR in 2 weeks, results to Dr. Morales ( prescription will be given) ( ) (Tele: [phone]) , F/U appointment: as per DC instructions: PCP in 2 weeks, CV surgeon 2 weeks, Sales Compensation Analyst 3-4 weeks For any questions regarding incisions/ dressing / meds / post op care or above Symptoms, Saturday 8am-5pm Heart & Vascular Surgery Office ( Dr. White & Dr. Morales), After Hours / Nights (5pm -8am) Weekends and Holidays Please call [facility] Cardiac Intermediate Care Unit (CIC) Charge Nurse - Case Management Consult Case Management Consult-Home Health: Yes - Certification I have seen patient Tulio Pitts on 07/28/18. My clinical findings support the need for the requested home health care services because: Deconditioned with increased weakness I certify that my clinical findings support that this patient is homebound because: Post-op weakness (2) Coronary artery disease Qualifiers: Coronary Disease-Associated Artery/Lesion type: [place] artery [place] vs. transplanted heart: [place] heart Associated angina: with unstable angina Qualified Code(s): I25.110 - Atherosclerotic heart disease of [place] coronary artery with unstable angina pectoris (3) ST elevation (STEMI) myocardial infarction Qualifiers: Involved coronary artery: right coronary artery Qualified Code(s): I21.11 - ST elevation (STEMI) myocardial infarction involving right coronary artery
[2018-07-28] MEDS ORDERED: Heparin - SQ 10,000 UNITS/ML Vial ONE (13:58)
[2018-07-28] MEDS ORDERED: MethylPREDNISolone Sod Succinate Inj 125 MG/2 ML Vial ONE (13:58)
[2018-07-28] MEDS ORDERED: Potassium Chloride Inj 40 MEQ/20 ML Vial ONE (15:06)
[2018-07-28] MEDS ORDERED: Cardioplegic Irr Soln 2,000 ML IRRIGATION ONE (15:06)
[2018-07-28] MEDS ORDERED: Heparin 10,000 UNITS/10 ML Vial (for IV use) ONE (15:07)
[2018-07-28] MEDS ORDERED: Albumin Human 25% Inj 50 ML IV.SIG ONE (15:07)
--- NOTE | 2018-07-28 17:23 | P.PNCA ---
Subjective Interval history: alert in nad Medications and Allergies Active Medications: Active Medications Acetaminophen (Tylenol) 650 mg PO Q4H PRN PRN Reason: Temp > 100.4 Al Hydroxide/Mg Hydroxide (Milk Of Romaine Lilove) 30 ml PO Q12H PRN PRN Reason: Mild Constipation Aspirin (Ecotrin) 162 mg PO DAILY [facility] Last Admin: 07/28/18 08:45 Dose: 162 mg Atorvastatin Calcium (Lipitor) 40 mg PO HS [facility] Last Admin: 07/27/18 20:47 Dose: 40 mg Bisacodyl (Dulcolax Supp) 10 mg RECTAL DAILY PRN PRN Reason: SEVERE CONSITIPATION Chlorhexidine Gluconate (Hibiclens 4% Topical) 1 applicatio TOPICAL FACEPIECE LINE SUPERVISOR [facility] Stop: 07/31/18 12:45 Sodium Chloride 77.5 ml/Papaverine HCl 60 mg/Nitroglycerin 100 mcg/Diltiazem HCl 100 mg 0 ml IRRIGATION FACEPIECE LINE SUPERVISOR [facility] Stop: 07/31/18 12:45 Last Admin: 07/28/18 16:15 Dose: 1 bag Sodium Chloride 1,000 ml/ (Vancomycin HCl 1,000 mg) 0 ml IRRIGATION FACEPIECE LINE SUPERVISOR [facility] Stop: 07/31/18 12:46 Last Admin: 07/28/18 16:16 Dose: 1 irrig.soln Dextrose (D50w Vial) 50 ml IV.PUSH UNSCH PRN PRN Reason: PER HYPOGLYCEMIA PROTOCOL Sodium Chloride (Ns Inj) 1,000 mls @ 100 mls/hr IV.CONT .Q10H [facility] Last Infusion: 07/27/18 18:05 Dose: Infused Insulin Human Regular 100 unit (/ Sodium Chloride) 100 mls @ 3 mls/hr IV.CONT TITRATE PRN; Protocol PRN Reason: See Protocol Vancomycin HCl 1,250 mg/ (Sodium Chloride) 262.5 mls @ 250 mls/hr IV.SIG FACEPIECE LINE SUPERVISOR [facility] Stop: 07/31/18 12:46 Last Infusion: 07/28/18 16:52 Dose: Infused Heparin Sodium/Dextrose (Heparin/D5w 25,000 U/250 Ml) 25,000 unit in 250 mls @ 0 mls/hr IV.CONT TITRATE PRN; Protocol PRN Reason: Per Protocol Last Titration: 07/28/18 08:48 Dose: 0 units/hr, 0 mls/hr Tirofiban/Sodium Chloride (Aggrastat Inj) 12,500 mcg in 250 mls @ 0 mls/hr IV.CONT .Q0M [facility]; Protocol Lactulose (Lactulose Liq) 30 ml PO DAILY PRN PRN Reason: SEVERE CONSITIPATION Metoprolol Tartrate (Lopressor) 12.5 mg PO FACEPIECE LINE SUPERVISOR [facility] Stop: 07/31/18 12:47 Last Admin: 07/28/18 08:46 Dose: 12.5 mg Mupirocin (Bactroban 2% Nasal Oint) 1 applicatio EACH NARE BID [facility] Stop: 07/29/18 12:47 Last Admin: 07/28/18 08:46 Dose: 1 applicatio Ondansetron HCl (Zofran Inj) 4 mg IV.PUSH Q6H PRN PRN Reason: NAUSEA OR VOMITING Sennosides (Senokot) 17.2 mg PO Q12H PRN PRN Reason: Moderate Constipation Sodium Chloride (Ns Flush) 2 ml IV.FLUSH UNSCH PRN PRN Reason: FLUSH AFTER USING IV ACCESS Sodium Chloride (Ns Flush) 2 ml IV.FLUSH PRN PRN PRN Reason: FLUSH AFTER USING IV ACCESS Sodium Chloride (Ns Flush) 2 ml IV.FLUSH BID [facility] Last Admin: 07/28/18 08:46 Dose: 2 ml Allergies Allergy/AdvReac Type Severity Reaction Status Date / Time penicillin G Allergy Severe Unverified 04/16/17 12:50 Home Medications Medication Instructions Recorded Confirmed Type atorvastatin [Lipitor] 40 mg PO DAILY 07/23/18 07/23/18 History esomeprazole magnesium [Nexium 07/23/18 History 24HR] Physical Exam Vital signs: Vital Signs 07/27/18 18:00 07/27/18 19:00 07/27/18 20:00 Temperature 97.7 F Pulse Rate 60 56 L 55 L Respiratory Rate 17 Blood Pressure 132/62 Pulse Oximetry 100 07/27/18 21:00 07/27/18 22:00 07/27/18 23:00 Temperature 98.9 F Pulse Rate 67 56 L 57 L Respiratory Rate 17 Blood Pressure 120/69 Pulse Oximetry 96 07/28/18 00:00 07/28/18 01:00 07/28/18 02:00 Temperature Pulse Rate 55 L 53 L 51 L Respiratory Rate Blood Pressure Pulse Oximetry 07/28/18 03:00 07/28/18 04:00 07/28/18 05:00 Temperature 98.9 F Pulse Rate 50 L 50 L 52 L Respiratory Rate 17 Blood Pressure 130/65 Pulse Oximetry 96 07/28/18 05:40 07/28/18 07:00 07/28/18 08:00 Temperature 98.2 F Pulse Rate 49 L 61 50 L Respiratory Rate 18 Blood Pressure 104/57 L Pulse Oximetry 97 07/28/18 09:00 07/28/18 10:00 07/28/18 11:00 Temperature 97.9 F Pulse Rate 52 L 46 L 47 L Respiratory Rate 18 Blood Pressure 117/62 Pulse Oximetry 95 07/28/18 12:00 07/28/18 13:00 07/28/18 14:00 Temperature Pulse Rate 55 L 46 L 51 L Respiratory Rate Blood Pressure Pulse Oximetry Intake & Output 07/27/18 07/28/18 07/28/18 18:59 06:59 18:59 Intake Total 1600 / 1600 240 / 240 262.5 / 262.5 Output Total 1150 / 1150 1000 / 1000 Balance 450 / 450 -760 / -760 262.5 / 262.5 Weight 73.8 kg Intake: IV 950 / 950 262.5 / 262.5 Heparin/D5W 25,000 U/250 mL 25, 250 / 250 000 unit In 250 ml @ Per Protocol IV.CONT TITRATE PRN Rx #:[id number] NS Inj 1,000 ML @ 100 mls/hr IV 700 / 700 .CONT .Q10H [facility] Rx#:[id number] Vancomycin Inj 1,250 MG In NS 262.5 / 262.5 Inj 250 ML @ 250 mls/hr IV.SIG FACEPIECE LINE SUPERVISOR [facility] Rx#:[id number] Oral 650 / 650 240 / 240 Output: Urine 1150 / 1150 1000 / 1000 Other: Date of Last Bowel Movement 07/27/18 07/27/18 # Bowel Movements 3 - Constitutional no acute distress - Routine HEENT Exam Head: Present: normocephalic - Routine Neck Exam Present: supple - Routine Respiratory Exam Present: CTA bilaterally - Routine Cardiovascular Exam Present: S1, S2 - Routine Abdominal Exam Present: soft - Routine Extremities Exam Comments: no gladys - Urinary Catheter Management Indwelling Temp Sensing Catheter Cath placed during this visit: yes Reason for continuing: Hourly intake/output Insertion date: 07/28/18 Insertion time: 15:30 Results 07/28/18 05:06 07/24/18 03:33 Coagulation 07/26/18 07/27/18 Range/Units 17:05 04:40 APTT 42.0 H 43.3 H (23.4-31.7) sec CBC 07/27/18 07/28/18 Range/Units 04:27 05:06 WBC 10.0 9.5 (4.0-11.0) th/mm3 RBC 4.11 L 4.03 L (4.50-5.90) mil/mm3 Hgb 12.8 L 12.5 L (13.0-17.0) gm/dL Hct 37.6 L 36.5 L (39.0-51.0) % Plt Count 190 191 (150-450) th/mm3 Intake and Output 07/28/18 07/28/18 07/28/18 06:59 14:59 22:59 Intake Total 240 / 240 262.5 / 262.5 Output Total 1000 / 1000 Balance -760 / -760 262.5 / 262.5 Intake: IV 262.5 / 262.5 Vancomycin Inj 1,250 MG In NS 262.5 / 262.5 Inj 250 ML @ 250 mls/hr IV.SIG FACEPIECE LINE SUPERVISOR [facility] Rx#:[id number] Oral 240 / 240 Output: Urine 1000 / 1000 Other: Date of Last Bowel Movement 07/27/18 Weight 73.8 kg Assessment and Plan - Assessment (1) Coronary artery disease Code(s): I25.10 - Atherosclerotic heart disease of [place] coronary artery without angina pectoris Status: Acute Plan: 1.) CAD - assymptomatic, continue aspirin, tirofoban, lipitor. Plavix held, cabg per Dr Morales 07/28/18 (1) Coronary artery disease Qualifiers: Coronary Disease-Associated Artery/Lesion type: [place] artery [place] vs. transplanted heart: [place] heart Associated angina: with unstable angina Qualified Code(s): I25.110 - Atherosclerotic heart disease of [place] coronary artery with unstable angina pectoris
[2018-07-28] MEDS ORDERED: Post-op Orders (for Pharmacy) OTHER STA (18:01)
[2018-07-28] MEDS ORDERED: Dexmedetomidine Inj 200 MCG in Sodium Chlor 0.9% Inj 48 ML IV.CONT PRN (18:01)
[2018-07-28] MEDS ORDERED: Metoprolol Inj 5 MG/5 ML Vial IV.PUSH PRN (18:01)
[2018-07-28] MEDS ORDERED: Potassium Chlor 20 mEq Premix 20 MEQ/100 ML PIGGYBACK IV.SIG PRN ×3 (18:01)
[2018-07-28] MEDS ORDERED: Insulin Regular (For Infusion) 100 UNIT in Sodium Chlor 0.9% Inj 99 ML IV.CONT PRN (18:01)
[2018-07-28] MEDS ORDERED: Dextrose 50% in Water 50 ML Vial IV.PUSH PRN (18:01)
[2018-07-28] MEDS ORDERED: Calcium Chloride Inj 1 GM/10 ML Syringe IV.PUSH PRN (18:01)
[2018-07-28] MEDS ORDERED: RESP: Racemic Epinephrine 2.25% 0.5 ML Neb NEB PRN (18:01)
[2018-07-28] MEDS ORDERED: hydrALAZINE HCl Inj 20 MG/ML Vial IV.PUSH PRN (18:01)
[2018-07-28] MEDS ORDERED: Calcium Chloride Inj 1 GM in Sodium Chlor 0.9% Inj 100 ML IV.SIG PRN (18:01)
[2018-07-28] MEDS ORDERED: Magnesium Sulfate Inj 2 GM in Sodium Chlor 0.9% Inj 96 ML IV.SIG PRN ×4 (18:01)
[2018-07-28] MEDS ORDERED: fentaNYL Citrate Inj 100 MCG/2 ML Ampul IV.PUSH PRN (18:01)
[2018-07-28] MEDS ORDERED: Clevidipine Inj 25 MG/50 ML VIAL IV.CONT PRN (18:01)
[2018-07-28] MEDS ORDERED: Albumin Human 5% Inj 250 ML IV.SIG PRN (18:01)
--- NOTE | 2018-07-28 18:10 | P.OP ---
- Preoperative Diagnosis (1) Coronary artery disease (2) ST elevation (STEMI) myocardial infarction Postoperative Diagnosis: same Date of procedure: 07/28/18 Procedure: CABG x 2 SORIANO to LAD - good SVG to OM - good EVH Anesthesia: GETA Surgeon: Gabriela Morales MD [employer] Security Consultant: Jayson Flores Pathology: none sent Operation and Findings: The risks, benefits, complications, treatment options, and expected outcomes were discussed with the patient. The possibilities of reaction to medication, pulmonary aspiration, perforation of viscus, bleeding, recurrent infection, the need for additional procedures, failure to diagnose a condition, and creating a complication requiring transfusion or operation were discussed with the patient. The patient concurred with the proposed plan, giving informed consent. The site of surgery properly noted/marked. The patient was taken to Operating Room, identified as Tulio Pitts and the procedure verified as CABG, EVH. A Time Out was held and the above information confirmed. Standard monitoring lines and Stout catheter were placed. General anesthesia was induced. The patient was prepped and draped in a sterile fashion. A median sternotomy was performed and electrocautery was used to obtain hemostasis. The left internal mammary artery was procured as a pedicle from the 7th rib to the 1st rib in the usual manner. Simultaneously left greater saphenous vein was procured from the left leg using a minimally invasive endoscopic technique. The vein was prepared for anastomosis and the leg wound was irrigated and closed in 2 layers. The pericardium was opened and a pericardial sling was created using interrupted 0 silk sutures. The patient was heparinized for cardiopulmonary bypass and the distal mammary pedicle was instrumented for anastomosis. The heart was instrumented for cardiopulmonary bypass in the usual manner. Antegrade blood cardioplegia was employed. The patient was placed on cardiopulmonary bypass. An aortic cross-clamp was applied and the heart was arrested using cold blood cardioplegia. Antegrade cardioplegia was administered after he each anastomosis. After adequate arrest, the 1st circumflex marginal artery was opened with a [place] blade and found to be a 1.5 millimeter good target. Saphenous vein was approximated to the OM1 artery using a running 7 0 Prolene suture. The graft was measured for length and orientation and was suspended from the pericardium. The distal LAD was opened with a [place] blade and found to be a 1.5 millimeter good target. The left internal mammary artery was approximated to the LAD using a running 7 0 Prolene suture. The pedicle was attached to the epicardium using interrupted 5 0 silk suture. The patient was systemically rewarmed and received a hotshot dose of warm blood cardioplegia. The aorta was vented and the proximal anastomosis to the OM1 graft was accomplished using a running 5 0 Prolene suture after creating an aortotomy was a 5 millimeter punch. The cross -clamp was removed and all proximal and distal anastomoses were examined for hemostasis. The patient was weaned from cardiopulmonary bypass. Protamine was given. There was no adverse reaction. Decannulation was carried out without incident. Wound was checked for hemostasis which was obtained using electrocautery. A 36 [place] mediastinal and 32 [place] left pleural chest tubes were placed and secured to the skin with 0 silk suture. The sternum was closed with stainless steel wire. The fascia was closed with 1. PDS. The subcutaneous tissue was closed using a running 2-0 Vicryl suture. The skin was closed with 4- 0 Monocryl. Sterile dressings were placed. At the end of the operation, all sponge, instruments, and needle counts were correct. The patient was transferred to the CVICU in stable condition. Findings: good distal targets. Recently placed stents visible all the way into the PDA XC: 31 min CPB: 41 min Drains: mediastinal x 1 pleural x 1 Complications: none
[2018-07-28] MEDS ORDERED: fentaNYL Citrate Inj 250 MCG/5 ML Ampul ONE (18:42)
--- NOTE | 2018-07-28 19:19 | XR ---
EXAM DATE: 07/28/2018 7:14 PM EST AGE/SEX: 68 years / Male INDICATIONS: Post operative CABG. CLINICAL DATA: This is the patient's subsequent encounter. Patient reports that signs and symptoms h ave been present for 1 day and indicates a pain score of Nonresponsive. MEDICAL/SURGICAL HISTORY: Cardiovascular disease. CABG. Coronary artery stent. [place] [facility] [place]. . FINDINGS: ET tube nasogastric tube and central line in good position. Right chest tube Lungs are clear Interval bypass. Mediastinum appropriate without pneumothorax. CONCLUSION: Support apparatus in good position Stable postoperative chest. Electronically signed by: Prabhjot Valadez MD 07/28/2018 7:18 PM EST
[2018-07-29] MEDS: Ketorolac Inj 30 MG/ML (IVP) Vial IV.PUSH PRN (00:11)
[2018-07-29] MEDS: Vancomycin Inj 1,000 MG in Sodium Chlor 0.9% Inj 250 ML IV.SIG SCH ×2 (03:21→17:56)
[2018-07-29] MEDS: Sod Chloride 0.9% Inj 1,000 ML IV.CONT SCH ×2 (03:22→06:39)
[2018-07-29 04:40] LABS: Hematocrit 32.9 % (39.0-51.0); Mean Corpuscular HGB Conc 33.3 % (32.0-36.0); Mean Corpuscular Hemoglobin 30.6 pg (27.0-34.0); Mean Platelet Volume 8.1 fL (7.0-11.0); Platelet Count 156 th/mm3 (150-450); Red Blood Count 3.58 mil/mm3 (4.50-5.90); Red Cell Distribution Width 13.7 % (11.6-17.2)
[2018-07-29 04:52] LABS: Calcium 8.1 mg/dL (8.5-10.1); Carbon Dioxide 23.4 meq/L (21.0-32.0); Magnesium 2.5 mg/dL (1.5-2.5); Potassium 4.3 meq/L (3.5-5.1)
--- NOTE | 2018-07-29 06:17 | XR ---
EXAM DATE: 07/29/2018 6:05 AM EST AGE/SEX: 68 years / Male INDICATIONS: Status post CABG. CLINICAL DATA: This is the patient's subsequent encounter. Patient reports that signs and symptoms h ave been present for 4 - 6 days and indicates a pain score of 4/10. MEDICAL/SURGICAL HISTORY: Myocardial infarction. Pancreatitis. Smoker. CAD. . Stent. COMPARISON: [facility], CHEST 1V SINGLE AP, 07/28/2018. . FINDINGS: 2 left-sided chest tubes present. No pneumothorax. Right central line in superior vena cava. Previous endotracheal tube removed. Mild basilar airspace disease similar to prior exam. No new infiltrate or effusion. CONCLUSION: Extubation. Left chest tubes and right central line unchanged. Stable mild basilar airspace disease. Electronically signed by: Bernardino Pedraza MD 07/29/2018 6:16 AM EST
[2018-07-29] MEDS ORDERED: Bisacodyl 10 MG Supp RECTAL PRN (09:21)
[2018-07-29] MEDS ORDERED: Sod Phosphate/Sod Biphosphate (Adult) Enema 133 ML Bottle RECTAL PRN (09:21)
[2018-07-29] MEDS ORDERED: Dextrose 50% in Water 50 ML Vial IV.PUSH PRN (09:21)
[2018-07-29] MEDS: Mupirocin 2% Nasal Oint Topical Syringe EACH NARE SCH (09:27)
[2018-07-29] MEDS ORDERED: Insulin NovoLOG Aspart Correctional Sugar Inj SQ SCH (10:00)
--- NOTE | 2018-07-29 10:14 | P.PNFP ---
Subjective Interval history: doing very well. up walking with CT tube, sternal vac. no complaints. discussed with nursing. Results - Labs Result diagrams: 07/29/18 04:32 07/29/18 04:32 Abnormal lab results 07/28/18 07/28/18 07/28/18 Range/Units 10:43 19:17 22:38 WBC (4.0-11.0) th/mm3 RBC (4.50-5.90) mil/mm3 Hgb (13.0-17.0) gm/dL Hct (39.0-51.0) % Chloride (98-107) meq/L BUN (7-18) mg/dL Estimated GFR (>89) mL/min POC Glucose 129 H 127 H (68-110) mg/dl Random Glucose (74-106) mg/dL Calcium (8.5-10.1) mg/dL MTS Gel Crossmatch See Detail 07/29/18 07/29/18 07/29/18 Range/Units 03:12 04:32 04:32 WBC 14.0 H (4.0-11.0) th/mm3 RBC 3.58 L (4.50-5.90) mil/mm3 Hgb 11.0 L (13.0-17.0) gm/dL Hct 32.9 L (39.0-51.0) % Chloride 108 H (98-107) meq/L BUN 21 H (7-18) mg/dL Estimated GFR 74 L (>89) mL/min POC Glucose 116 H (68-110) mg/dl Random Glucose 120 H (74-106) mg/dL Calcium 8.1 L (8.5-10.1) mg/dL MTS Gel Crossmatch Short CBC 07/29/18 Range/Units 04:32 WBC 14.0 H (4.0-11.0) th/mm3 Hgb 11.0 L (13.0-17.0) gm/dL Hct 32.9 L (39.0-51.0) % Plt Count 156 (150-450) th/mm3 BMP 07/29/18 04:32 Sodium 138 Potassium 4.3 Chloride 108 H Carbon Dioxide 23.4 BUN 21 H Creatinine 1.01 Calcium 8.1 L - Imaging Impressions Chest X-Ray 07/28/18 18:01 CONCLUSION: Support apparatus in good position Stable postoperative chest. Chest X-Ray 07/29/18 05:00 CONCLUSION: Extubation. Left chest tubes and right central line unchanged. Stable mild basilar airspace disease. Physical Exam Vital signs: Vital Signs 07/28/18 11:00 07/28/18 12:00 07/28/18 13:00 Temperature 97.9 F Pulse Rate 47 L 55 L 46 L Respiratory Rate 18 Blood Pressure 117/62 Pulse Oximetry 95 07/28/18 14:00 07/28/18 18:30 07/28/18 19:00 Temperature 97.7 F Pulse Rate 51 L 61 Respiratory Rate 17 10 L Blood Pressure 114/67 Pulse Oximetry 99 98 07/28/18 20:03 07/28/18 23:00 07/29/18 03:49 Temperature 98.0 F 98.0 F Pulse Rate 67 83 Respiratory Rate 12 15 Blood Pressure 93/49 L 93/57 L Pulse Oximetry 95 98 98 07/29/18 09:36 Temperature Pulse Rate Respiratory Rate Blood Pressure Pulse Oximetry 98 Intake & Output 07/28/18 07/29/18 07/29/18 18:59 06:59 18:59 Intake Total 2562.5 / 2562.5 1080 / 1080 Output Total 100 / 100 1150 / 1150 Balance 2462.5 / 2462.5 -70 / -70 Weight 171 kg Intake: IV 262.5 / 262.5 600 / 600 Ofirmev Inj 1,000 mg In 100 ml 100 / 100 @ 400 mls/hr IV.SIG Q6H [facility] Rx# :[id number] Buminate 5% Inj 250 ML @ 250 250 / 250 mls/hr IV.SIG UNSCH PRN Rx#: [id number] Vancomycin Inj 1,000 MG In NS 250 / 250 Inj 250 ML @ 250 mls/hr IV.SIG Q12H [facility] Rx#:[id number] Vancomycin Inj 1,250 MG In NS 262.5 / 262.5 Inj 250 ML @ 250 mls/hr IV.SIG ELECTRONIC TECHNOLOGIST [facility] Rx#:[id number] Oral 480 / 480 Anesthesia Amount 1500 / 1500 Cell Saver Amount 800 / 800 Output: Urine Amount (Catheter) 100 / 100 850 / 850 Indwelling Temp Sensing 100 / 100 850 / 850 Catheter Chest Tube Drainage 300 / 300 Pleural/Mediastinal 300 / 300 Other: Date of Last Bowel Movement 07/27/18 - Constitutional no acute distress, thin - Routine HEENT Exam Head: Present: normocephalic Eye: Present: EOMI - Routine Neck Exam Present: supple - Routine Respiratory Exam Present: CTA bilaterally, distant breath sounds - Routine Cardiovascular Exam Present: RRR, S1, S2 - Routine Abdominal Exam Present: soft, normoactive bowel sounds - Routine Extremities Exam Present: pulses intact - Routine Skin Exam Present: intact - Routine Neurological Exam Present: alert, oriented X3 - Detailed Neurological Exam: Coma Scale Eye Opening: Spontaneous Verbal Response: Oriented Motor Response: Obey commands Justino Coma Scale Total: 15 - Routine Psychiatric Exam Present: normal affect - Urinary Catheter Management Indwelling Temp Sensing Catheter Cath placed during this visit: yes, but has since been removed by the nurse Reason for continuing: Decision to DC catheter Insertion date: 07/28/18 Insertion time: 15:30 Removal date: 07/29/18 Removal time: 06:00 Assessment and Plan - Assessment (1) Coronary artery disease Code(s): I25.10 - Atherosclerotic heart disease of [place] coronary artery without angina pectoris Status: Acute (2) ST elevation (STEMI) myocardial infarction Code(s): I21.3 - ST elevation (STEMI) myocardial infarction of unspecified site Status: Acute - Assessment and Plan A/P- 68-year-old male with a history of coronary artery disease who presented to the emergency department on 07/24/2018 due to chest pressure. Patient was recently in [facility] where he developed chest pain and was subsequently diagnosed with right-sided myocardial infarction requiring 4 stents. He was discharged from the hospital on Saturday and he flew back to [place] after that. Due to intermittent chest pain that radiates to his left arm, patient decided to come to the emergency department. His troponin was 4.38 admission. STEMI: s/p CABG Jul 28, monitor CT/vac, Chest pain Multivessel CAD. HPLD: statin COPD Smoker: discussed cessation Anemia, chronic dz Pancreatitis, recurrent hx (1) Coronary artery disease Qualifiers: Coronary Disease-Associated Artery/Lesion type: [place] artery [place] vs. transplanted heart: [place] heart Associated angina: with unstable angina Qualified Code(s): I25.110 - Atherosclerotic heart disease of [place] coronary artery with unstable angina pectoris (2) ST elevation (STEMI) myocardial infarction Qualifiers: Involved coronary artery: right coronary artery Qualified Code(s): I21.11 - ST elevation (STEMI) myocardial infarction involving right coronary artery
[2018-07-29] MEDS: Insulin NovoLOG Aspart Correctional Sugar Inj SQ SCH ×4 (11:08→21:45)
--- NOTE | 2018-07-29 12:59 | P.DIET ---
Nutritional Evaluation Screening comments: MDC for diet education s/p CABG x 2 on 07/28 received. Patient Navigator to provide education. Consult RD if complexities with diet education arise.
--- NOTE | 2018-07-29 15:04 | P.PNCA ---
Subjective Interval history: alert in nad Medications and Allergies Active Medications: Active Medications Acetaminophen (Tylenol) 650 mg PO Q4H PRN PRN Reason: Temp > 100.4 Al Hydroxide/Mg Hydroxide (Milk Of Magnesia Liq) 30 ml PO Q12H PRN PRN Reason: Mild Constipation Al Hydroxide/Mg Hydroxide (Milk Of Magnesia Liq) 30 ml PO DAILY CHAD Albuterol (Duoneb Neb (Prn)) 1 ampul NEB Q2HR NEB PRN PRN Reason: WHEEZING Albuterol (Duoneb Neb (Chad)) 1 ampul NEB Q6HR WHILE AWAKE NEB [facility] Stop: 07/31/18 13:59 Aspirin (Aspirin Chew) 81 mg PO DAILY [facility] Last Admin: 07/29/18 09:26 Dose: 81 mg Atorvastatin Calcium (Lipitor) 40 mg PO HS [facility] Last Admin: 07/28/18 23:18 Dose: Not Given Bisacodyl (Dulcolax Supp) 10 mg RECTAL DAILY PRN PRN Reason: SEVERE CONSITIPATION Bisacodyl (Dulcolax Supp) 10 mg RECTAL PRN PRN PRN Reason: SEE LABEL COMMENTS Chlorhexidine Gluconate (Hibiclens 4% Topical) 1 applicatio [employer]ICAL ENGINEERING PRODUCTION WORKER [facility] Stop: 07/31/18 12:45 Sodium Chloride 77.5 ml/Papaverine HCl 60 mg/Nitroglycerin 100 mcg/Diltiazem HCl 100 mg 0 ml IRRIGATION ENGINEERING PRODUCTION WORKER [facility] Stop: 07/31/18 12:45 Last Admin: 07/28/18 16:15 Dose: 1 bag Sodium Chloride 1,000 ml/ (Vancomycin HCl 1,000 mg) 0 ml IRRIGATION ENGINEERING [employer]ODUCTION WORKER [facility] Stop: 07/31/18 12:46 Last Admin: 07/28/18 16:16 Dose: 1 irrig.soln Dextrose (D50w Vial) 50 ml IV.PUSH UNSCH PRN PRN Reason: PER HYPOGLYCEMIA PROTOCOL Docusate Sodium (Colace) 100 mg PO BID [facility] Glucagon (Glucagon Inj) 1 mg OTHER PRN PRN PRN Reason: For hypoglycemia Sodium Chloride (Ns Inj) 1,000 mls @ 100 mls/hr IV.CONT .Q10H [facility] Last Admin: 07/29/18 06:39 Dose: Not Given Vancomycin HCl 1,250 mg/ (Sodium Chloride) 262.5 mls @ 250 mls/hr IV.SIG ENGINEERING PRODUCTION WORKER [facility] Stop: 07/31/18 12:46 Last Infusion: 07/28/18 16:52 Dose: Infused Vancomycin HCl 1,000 mg/ (Sodium Chloride) 250 mls @ 250 mls/hr IV.SIG Q12H [facility] Stop: 07/30/18 04:59 Last Infusion: 07/29/18 06:39 Dose: Infused Insulin Aspart (Novolog Insulin [place] Sugar Inj) 0 unit SQ 02,06,10,14, 18,22 [facility]; Protocol Stop: 07/30/18 09:59 Last Admin: 07/29/18 11:08 Dose: 7 unit Insulin Aspart (Novolog Insulin Correctional Sugar Inj) 0 unit SQ [facility]; Protocol Ketorolac Tromethamine (Toradol Inj) 15 mg IV.PUSH Q6H PRN PRN Reason: SEE LABEL COMMENTS Stop: 07/30/18 18:00 Last Admin: 07/29/18 00:11 Dose: 15 mg Lactulose (Lactulose Liq) 30 ml PO DAILY PRN PRN Reason: SEVERE CONSITIPATION Metoprolol Tartrate (Lopressor) 12.5 mg PO ENGINEERING PRODUCTION WORKER [facility] Stop: 07/31/18 12:47 Last Admin: 07/28/18 08:46 Dose: 12.5 mg Multivitamins/Minerals (Theragran-M) 1 tab PO DAILY [facility] Ondansetron HCl (Zofran Inj) 4 mg IV.PUSH Q6H PRN PRN Reason: NAUSEA OR VOMITING Oxycodone/Acetaminophen (Percocet 5/325 Mg) 1 tab PO Q3H PRN PRN Reason: PAIN SCALE 1 TO 5 Last Admin: 07/29/18 09:27 Dose: 1 tab Oxycodone/Acetaminophen (Percocet 5/325 Mg) 2 tab PO Q4H PRN PRN Reason: Acute Pain Pantoprazole Sodium (Protonix) 40 mg PO DAILY@06 [facility] Last Admin: 07/29/18 06:39 Dose: 40 mg Polyethylene Glycol (Miralax) 17 gm PO DAILY [facility] Sennosides (Senokot) 17.2 mg PO Q12H PRN PRN Reason: Moderate Constipation Sennosides (Senokot) 8.6 mg PO HS [facility] Sodium Biphosphate/Sodium Phosphate (Fleets Enema (Adult)) 118 ml RECTAL UNSCH PRN PRN Reason: SEE LABEL COMMENTS Sodium Chloride (Ns Flush) 2 ml IV.FLUSH BID [facility] Last Admin: 07/29/18 11:00 Dose: 2 ml Sodium Chloride (Ns Flush) 2 ml IV.FLUSH PRN PRN PRN Reason: FLUSH AFTER USING IV ACCESS Allergies Allergy/AdvReac Type Severity Reaction Status Date / Time penicillin G Allergy Severe Unverified 04/16/17 12:50 Home Medications Medication Instructions Recorded Confirmed Type atorvastatin [Lipitor] 40 mg PO DAILY 07/23/18 07/23/18 History esomeprazole magnesium [Nexium 07/23/18 History 24HR] Physical Exam Vital signs: Vital Signs 07/28/18 18:30 07/28/18 19:00 07/28/18 20:03 Temperature 97.7 F Pulse Rate 61 Respiratory Rate 17 10 L Blood Pressure 114/67 Pulse Oximetry 99 98 95 07/28/18 23:00 07/29/18 03:49 07/29/18 07:00 Temperature 98.0 F 98.0 F 97.8 F Pulse Rate 67 83 76 Respiratory Rate 12 15 18 Blood Pressure 93/49 L 93/57 L 106/59 L Pulse Oximetry 98 98 99 07/29/18 09:36 07/29/18 11:00 Temperature 98.1 F Pulse Rate 65 Respiratory Rate 18 Blood Pressure 100/69 Pulse Oximetry 98 99 Intake & Output 07/28/18 07/29/18 07/29/18 18:59 06:59 18:59 Intake Total 2562.5 / 2562.5 1080 / 1080 100 / 100 Output Total 100 / 100 1150 / 1150 Balance 2462.5 / 2462.5 -70 / -70 100 / 100 Weight 171 kg Intake: IV 262.5 / 262.5 600 / 600 100 / 100 Ofirmev Inj 1,000 mg In 100 ml 100 / 100 100 / 100 @ 400 mls/hr IV.SIG Q6H [facility] Rx# :[id number] Buminate 5% Inj 250 ML @ 250 250 / 250 mls/hr IV.SIG UNSCH PRN Rx#: [id number] Vancomycin Inj 1,000 MG In NS 250 / 250 Inj 250 ML @ 250 mls/hr IV.SIG Q12H [facility] Rx#:[id number] Vancomycin Inj 1,250 MG In NS 262.5 / 262.5 Inj 250 ML @ 250 mls/hr IV.SIG ENGINEERING PRODUCTION WORKER [facility] Rx#:[id number] Oral 480 / 480 Anesthesia Amount 1500 / 1500 Cell Saver Amount 800 / 800 Output: Urine Amount (Catheter) 100 / 100 850 / 850 Indwelling Temp Sensing 100 / 100 850 / 850 Catheter Chest Tube Drainage 300 / 300 Pleural/Mediastinal 300 / 300 Other: Date of Last Bowel Movement 07/27/18 07/27/18 - Constitutional no acute distress - Routine HEENT Exam Head: Present: normocephalic - Routine Neck Exam Present: supple - Routine Respiratory Exam Present: CTA bilaterally - Routine Cardiovascular Exam Present: S1, S2 - Routine Abdominal Exam Present: soft - Routine Extremities Exam Comments: no gladys - Urinary Catheter Management Indwelling Temp Sensing Catheter Cath placed during this visit: yes, but has since been removed by the nurse Reason for continuing: Decision to DC catheter Insertion date: 07/28/18 Insertion time: 15:30 Removal date: 07/29/18 Removal time: 06:00 Results 07/29/18 04:32 07/29/18 04:32 CBC 07/28/18 07/29/18 Range/Units 05:06 04:32 WBC 9.5 14.0 H (4.0-11.0) th/mm3 RBC 4.03 L 3.58 L (4.50-5.90) mil/mm3 Hgb 12.5 L 11.0 L (13.0-17.0) gm/dL Hct 36.5 L 32.9 L (39.0-51.0) % Plt Count 191 156 (150-450) th/mm3 Comprehensive Metabolic Panel 07/29/18 Range/Units 04:32 Sodium 138 (136-145) meq/L Potassium 4.3 (3.5-5.1) meq/L Chloride 108 H (98-107) meq/L Carbon Dioxide 23.4 (21.0-32.0) meq/L BUN 21 H (7-18) mg/dL Creatinine 1.01 (0.60-1.30) mg/dL Calcium 8.1 L (8.5-10.1) mg/dL Intake and Output 07/29/18 07/29/18 07/29/18 06:59 14:59 22:59 Intake Total 980 / 980 100 / 100 Output Total 1150 / 1150 Balance -170 / -170 100 / 100 Intake: IV 500 / 500 100 / 100 Ofirmev Inj 1,000 mg In 100 ml 100 / 100 @ 400 mls/hr IV.SIG Q6H [facility] Rx# :[id number] Buminate 5% Inj 250 ML @ 250 250 / 250 mls/hr IV.SIG UNSCH PRN Rx#: [id number] Vancomycin Inj 1,000 MG In NS 250 / 250 Inj 250 ML @ 250 mls/hr IV.SIG Q12H [facility] Rx#:[id number] Oral 480 / 480 Output: Urine Amount (Catheter) 850 / 850 Indwelling Temp Sensing 850 / 850 Catheter Chest Tube Drainage 300 / 300 Pleural/Mediastinal 300 / 300 Other: Date of Last Bowel Movement 07/27/18 Weight 171 kg - Imaging and Cardiology Imaging: Impressions Chest X-Ray 07/28/18 18:01 CONCLUSION: Support apparatus in good position Stable postoperative chest. Chest X-Ray 07/29/18 05:00 CONCLUSION: Extubation. Left chest tubes and right central line unchanged. Stable mild basilar airspace disease. Assessment and Plan - Assessment (1) Coronary artery disease Code(s): I25.10 - Atherosclerotic heart disease of [place] coronary artery without angina pectoris Status: Acute Plan: 1.) CAD - pod #1 s/p cabg, continue aspirin, lipitor, lopressor, Plavix per Dr Morales (1) Coronary artery disease Qualifiers: Qualified Code(s): I25.110 - Atherosclerotic heart disease of [place] coronary artery with unstable angina pectoris
--- NOTE | 2018-07-29 15:06 | P.PNCV ---
- Note Subjective/Hospital Course: 68-year-old gentleman, who is a [place] citizen, who lives in [facility]. On 2017, he had an inferior ST-elevation myocardial infarction, while surfing . He was taken to a local hospital and received thrombolytic therapy which was not successful. He was taken to a private hospital in [place] where he underwent LHC and found to have RCA occlusion. He underwent stent placement x 4 in the RCA to restore flow. The revenue analyst there also recommended intervening on the LAD as a staged procedure, but the patient declined further treatment secondary to the extreme out of pocket costs. He immediately travelled back to [facility] and presented to Dr. Madrid for further treatment. He denies chest pain, dyspnea, palpitations, fever, dizziness, diaphoresis. PAST MEDICAL HISTORY: Includes myocardial infarction, pancreatitis, rotator cuff surgery.underwent a PCI through the right radial approach with 4 stents placed in the right coronary artery. Angiography also revealed a high-grade ostial LAD lesion. ECHO: EF 55 % 07/28 pt scheduled for CABG today / second case CABG x 2 SORIANO to LAD - good SVG to OM - good EVH extubated after surgery 1500cc crystalloid , 500cc cell saver , EBL 1000cc 07/29 up in chair , weaned off insulin gtt pain controlled hold on BB for now had some bradycardia this am on ASA, statin Objective: Vital Signs - 24 hr 07/28/18 18:30 07/28/18 19:00 07/28/18 20:03 Temperature 97.7 F Pulse Rate 61 Respiratory Rate 17 10 L Blood Pressure 114/67 Pulse Oximetry 99 98 95 07/28/18 23:00 07/29/18 03:49 07/29/18 07:00 Temperature 98.0 F 98.0 F 97.8 F Pulse Rate 67 83 76 Respiratory Rate 12 15 18 Blood Pressure 93/49 L 93/57 L 106/59 L Pulse Oximetry 98 98 99 07/29/18 09:36 07/29/18 11:00 Temperature 98.1 F Pulse Rate 65 Respiratory Rate 18 Blood Pressure 100/69 Pulse Oximetry 98 99 GENERAL: A&O x 3 SKIN: Warm and dry. prevena dressing to chest , tom wrap to left leg HEAD: Normocephalic. EYES: No scleral icterus. No injection or drainage. NECK: Supple, trachea midline. No JVD or lymphadenopathy. CARDIOVASCULAR: Regular rate and rhythm without murmurs, gallops, or rubs. RESPIRATORY: Breath sounds equal bilaterally. No accessory muscle use. chest tube to wall suction, no air leak / drained 300cc/ 12hrs GASTROINTESTINAL: Abdomen soft, non-tender, nondistended. MUSCULOSKELETAL: No cyanosis, or edema. BACK: Nontender without obvious deformity. No CVA tenderness. Labs: Laboratory Results - last 12 hr 07/28/18 07/29/18 07/29/18 10:43 03:12 04:32 WBC 14.0 H RBC 3.58 L Hgb 11.0 L Hct 32.9 L MCV 92.0 MCH 30.6 MCHC 33.3 RDW 13.7 Plt Count 156 MPV 8.1 Sodium Potassium Chloride Carbon Dioxide Anion Gap BUN Creatinine Estimated GFR POC Glucose 116 H Random Glucose Calcium Magnesium Blood Type O Positive Antibody Screen Negative MTS Gel Crossmatch See Detail 07/29/18 07/29/18 07/29/18 04:32 07:10 11:04 WBC RBC Hgb Hct MCV MCH MCHC RDW Plt Count MPV Sodium 138 Potassium 4.3 Chloride 108 H Carbon Dioxide 23.4 Anion Gap 7 BUN 21 H Creatinine 1.01 Estimated GFR 74 L POC Glucose 93 160 H Random Glucose 120 H Calcium 8.1 L Magnesium 2.5 Blood Type Antibody Screen MTS Gel Crossmatch 07/29/18 14:52 WBC RBC Hgb Hct MCV MCH MCHC RDW Plt Count MPV Sodium Potassium Chloride Carbon Dioxide Anion Gap BUN Creatinine Estimated GFR POC Glucose 144 H Random Glucose Calcium Magnesium Blood Type Antibody Screen MTS Gel Crossmatch Result Diagrams: 07/29/18 04:32 07/29/18 04:32 Telemetry: SB>SR - Plan (1) S/P CABG (coronary artery bypass graft) Plan: ASA, statin , consider BB in am OOB pulm toileting ? resume plavix EKG q waves inf leads unchanged transferred to stepdown (2) Coronary artery disease (3) ST elevation (STEMI) myocardial infarction (2) Coronary artery disease Qualifiers: Coronary Disease-Associated Artery/Lesion type: [place] artery [place] vs. transplanted heart: [place] heart Associated angina: with unstable angina Qualified Code(s): I25.110 - Atherosclerotic heart disease of [place] coronary artery with unstable angina pectoris (3) ST elevation (STEMI) myocardial infarction Qualifiers: Involved coronary artery: right coronary artery Qualified Code(s): I21.11 - ST elevation (STEMI) myocardial infarction involving right coronary artery
--- NOTE | 2018-07-29 15:35 | ECG ---
Date Performed: 07/29/2018 Time Performed: 05:42:08 PTAGE: 68 years EKG: Sinus rhythm with 1st degree A-V block Inferior infarct - age undetermined Low QRS voltages in precordial leads A bnormal ECG PREVIOUS TRACING : 07/24/2018 08.15 Since the previous tracing, no significant change noted DOCTOR: Rima Enriquez Interpretating Date/Time 07/29/2018 15:34:52
[2018-07-29] MEDS: Docusate Sodium 100 MG Capsule PO SCH (21:29)
[2018-07-30] MEDS: Ketorolac Inj 30 MG/ML (IVP) Vial IV.PUSH PRN (03:45)
[2018-07-30] MEDS: Vancomycin Inj 1,000 MG in Sodium Chlor 0.9% Inj 250 ML IV.SIG SCH (03:51)
[2018-07-30] MEDS: Insulin NovoLOG Aspart Correctional Sugar Inj SQ SCH ×5 (04:05→21:58)
[2018-07-30 07:01] LABS: Baso % (Auto) 0.2 % (0.0-2.0); Hematocrit 29.7 % (39.0-51.0); Hemoglobin 10.1 gm/dL (13.0-17.0); Lymph # (Auto) 1.4 th/mm3 (1.0-4.8); Mean Corpuscular Hemoglobin 31.4 pg (27.0-34.0); Mean Corpuscular Volume 92.3 fL (80.0-100.0); Mean Platelet Volume 8.5 fL (7.0-11.0); Mono # (Auto) 1.7 th/mm3 (0.0-0.9); Mono % (Auto) 10.4 % (0.0-8.0); Neut # (Auto) 12.8 th/mm3 (1.8-7.7); Neut % (Auto) 80.4 % (16.0-70.0); Platelet Count 154 th/mm3 (150-450); Red Blood Count 3.22 mil/mm3 (4.50-5.90); Red Cell Distribution Width 13.6 % (11.6-17.2); White Blood Count 15.9 th/mm3 (4.0-11.0)
[2018-07-30 07:32] LABS: Calcium 8.4 mg/dL (8.5-10.1); Carbon Dioxide 22.9 meq/L (21.0-32.0); Magnesium 2.1 mg/dL (1.5-2.5); Potassium 4.5 meq/L (3.5-5.1)
[2018-07-30] MEDS: Polyethylene Glycol 3350 17 GM Packet PO SCH (09:14)
[2018-07-30] MEDS: Multivitamin/Minerals Therapeutic Tablet PO SCH (09:14)
[2018-07-30] MEDS: Docusate Sodium 100 MG Capsule PO SCH ×2 (09:14→20:32)
--- NOTE | 2018-07-30 09:53 | P.PNFP ---
Subjective Interval history: up walking. doing well. c/o incisional pain. d/w RN Results - Labs Result diagrams: 07/30/18 06:25 07/30/18 06:25 Abnormal lab results 07/29/18 07/29/18 07/29/18 Range/Units 11:04 14:52 18:36 WBC (4.0-11.0) th/mm3 RBC (4.50-5.90) mil/mm3 Hgb (13.0-17.0) gm/dL Hct (39.0-51.0) % Neut % (Auto) (16.0-70.0) % [place] % (Auto) (0.0-8.0) % Neut # (Auto) (1.8-7.7) th/mm3 [place] # (Auto) (0.0-0.9) th/mm3 Sodium (136-145) meq/L BUN (7-18) mg/dL Estimated GFR (>89) mL/min POC Glucose 160 H 144 H 194 H (68-110) mg/dl Random Glucose (74-106) mg/dL Calcium (8.5-10.1) mg/dL 07/29/18 07/30/18 07/30/18 Range/Units 21:33 05:32 06:25 WBC 15.9 H (4.0-11.0) th/mm3 RBC 3.22 L (4.50-5.90) mil/mm3 Hgb 10.1 L (13.0-17.0) gm/dL Hct 29.7 L (39.0-51.0) % Neut % (Auto) 80.4 H (16.0-70.0) % [place] % (Auto) 10.4 H (0.0-8.0) % Neut # (Auto) 12.8 H (1.8-7.7) th/mm3 [place] # (Auto) 1.7 H (0.0-0.9) th/mm3 Sodium (136-145) meq/L BUN (7-18) mg/dL Estimated GFR (>89) mL/min POC Glucose 150 H 144 H (68-110) mg/dl Random Glucose (74-106) mg/dL Calcium (8.5-10.1) mg/dL 07/30/18 Range/Units 06:25 WBC (4.0-11.0) th/mm3 RBC (4.50-5.90) mil/mm3 Hgb (13.0-17.0) gm/dL Hct (39.0-51.0) % Neut % (Auto) (16.0-70.0) % [place] % (Auto) (0.0-8.0) % Neut # (Auto) (1.8-7.7) th/mm3 [place] # (Auto) (0.0-0.9) th/mm3 Sodium 131 L (136-145) meq/L BUN 25 H (7-18) mg/dL Estimated GFR 61 L (>89) mL/min POC Glucose (68-110) mg/dl Random Glucose 125 H (74-106) mg/dL Calcium 8.4 L (8.5-10.1) mg/dL Short CBC 07/30/18 Range/Units 06:25 WBC 15.9 H (4.0-11.0) th/mm3 Hgb 10.1 L (13.0-17.0) gm/dL Hct 29.7 L (39.0-51.0) % Plt Count 154 (150-450) th/mm3 BMP 07/30/18 06:25 Sodium 131 L Potassium 4.5 Chloride 102 Carbon Dioxide 22.9 BUN 25 H Creatinine 1.19 Calcium 8.4 L Physical Exam Vital signs: Vital Signs 07/29/18 11:00 07/29/18 15:00 07/29/18 19:00 Temperature 98.1 F 98.1 F 98.3 F Pulse Rate 65 74 72 Respiratory Rate 18 18 16 Blood Pressure 100/69 114/66 114/73 Pulse Oximetry 99 99 97 07/29/18 20:00 07/29/18 20:54 07/29/18 21:00 Temperature Pulse Rate 84 57 L 86 Respiratory Rate 16 Blood Pressure Pulse Oximetry 97 07/29/18 22:00 07/29/18 23:00 07/30/18 00:00 Temperature 98 F Pulse Rate 72 77 72 Respiratory Rate 16 Blood Pressure 93/61 L Pulse Oximetry 93 L 07/30/18 01:00 07/30/18 02:00 07/30/18 03:00 Temperature 98.3 F Pulse Rate 76 80 77 Respiratory Rate 16 Blood Pressure 102/70 Pulse Oximetry 97 07/30/18 04:00 07/30/18 05:00 07/30/18 06:00 Temperature Pulse Rate 78 74 72 Respiratory Rate Blood Pressure Pulse Oximetry 07/30/18 07:00 07/30/18 07:55 Temperature Pulse Rate 79 75 Respiratory Rate 19 Blood Pressure 127/73 Pulse Oximetry 99 96 Intake & Output 07/29/18 07/30/18 07/30/18 18:59 06:59 18:59 Intake Total 840 / 840 980 / 980 Output Total 200 / 200 585 / 585 Balance 640 / 640 395 / 395 Weight 73.5 kg Intake: IV 100 / 100 500 / 500 Ofirmev Inj 1,000 mg In 100 ml 100 / 100 @ 400 mls/hr IV.SIG Q6H [facility] Rx# :[id number] Vancomycin Inj 1,000 MG In NS 500 / 500 Inj 250 ML @ 250 mls/hr IV.SIG Q12H [facility] Rx#:[id number] Oral 740 / 740 480 / 480 Output: Urine 100 / 100 425 / 425 Chest Tube Drainage 100 / 100 160 / 160 Pleural/Mediastinal 100 / 100 160 / 160 Other: Date of Last Bowel Movement 07/27/18 - Constitutional no acute distress - Routine HEENT Exam Head: Present: normocephalic Eye: Present: EOMI - Routine Neck Exam Present: supple - Routine Respiratory Exam Present: CTA bilaterally - Routine Cardiovascular Exam Present: RRR, S1, S2 - Routine Abdominal Exam Present: soft, normoactive bowel sounds - Routine Extremities Exam Present: full ROM - Routine Skin Exam Present: intact, scars, wounds - Routine Neurological Exam Present: alert, oriented X3 - Detailed Neurological Exam: Coma Scale Eye Opening: Spontaneous Verbal Response: Oriented Motor Response: [place] commands [place] Coma Scale Total: 15 - Routine Psychiatric Exam Present: normal affect - Urinary Catheter Management Indwelling Temp Sensing Catheter Cath placed during this visit: yes, but has since been removed by the nurse Reason for continuing: Decision to DC catheter Insertion date: 07/28/18 Insertion time: 15:30 Removal date: 07/29/18 Removal time: 06:00 Assessment and Plan - Assessment (1) Coronary artery disease Code(s): I25.10 - Atherosclerotic heart disease of [place] coronary artery without angina pectoris Status: Acute (2) ST elevation (STEMI) myocardial infarction Code(s): I21.3 - ST elevation (STEMI) myocardial infarction of unspecified site Status: Acute - Assessment and Plan A/P- 68-year-old male with a history of coronary artery disease who presented to the emergency department on 07/24/2018 due to chest pressure. Patient was recently in [facility] where he developed chest pain and was subsequently diagnosed with right-sided myocardial infarction requiring 4 stents. He was discharged from the hospital on Saturday and he flew back to [place] after that. Due to intermittent chest pain that radiates to his left arm, patient decided to come to the emergency department. His troponin was 4.38 admission. STEMI: s/p CABG Jul 28, monitor CT/vac, Chest pain Multivessel CAD. bradycardia: HPLD: statin COPD Smoker: discussed cessation Anemia, chronic dz and blood loss Pancreatitis, recurrent hx (1) Coronary artery disease Qualifiers: Coronary Disease-Associated Artery/Lesion type: [place] artery [place] vs. transplanted heart: [place] heart Associated angina: with unstable angina Qualified Code(s): I25.110 - Atherosclerotic heart disease of [place] coronary artery with unstable angina pectoris (2) ST elevation (STEMI) myocardial infarction Qualifiers: Involved coronary artery: right coronary artery Qualified Code(s): I21.11 - ST elevation (STEMI) myocardial infarction involving right coronary artery
--- NOTE | 2018-07-30 14:27 | P.PNCA ---
Subjective Interval history: alert in nad Medications and Allergies Active Medications: Active Medications Acetaminophen (Tylenol) 650 mg PO Q4H PRN PRN Reason: Temp > 100.4 Al Hydroxide/Mg Hydroxide (Milk Of Magnesia Liq) 30 ml PO Q12H PRN PRN Reason: Mild Constipation Al Hydroxide/Mg Hydroxide (Milk Of Magnesia Liq) 30 ml PO DAILY [facility] Last Admin: 07/30/18 09:14 Dose: 30 ml Albuterol (Duoneb Neb (Prn)) 1 ampul NEB Q2HR NEB PRN PRN Reason: WHEEZING Albuterol (Duoneb Neb ([place])) 1 ampul NEB Q6HR WHILE AWAKE NEB [facility] Stop: 07/31/18 13:59 Last Admin: 07/30/18 12:52 Dose: Not Given Aspirin (Aspirin Chew) 81 mg PO DAILY [facility] Last Admin: 07/30/18 09:14 Dose: 81 mg Atorvastatin Calcium (Lipitor) 40 mg PO HS [facility] Last Admin: 07/29/18 21:28 Dose: 40 mg Bisacodyl (Dulcolax Supp) 10 mg RECTAL DAILY PRN PRN Reason: SEVERE CONSITIPATION Bisacodyl (Dulcolax Supp) 10 mg RECTAL PRN PRN PRN Reason: SEE LABEL COMMENTS Dextrose (D50w Vial) 50 ml IV.PUSH UNSCH PRN PRN Reason: PER HYPOGLYCEMIA PROTOCOL Docusate Sodium (Colace) 100 mg PO BID [facility] Last Admin: 07/30/18 09:14 Dose: 100 mg Glucagon (Glucagon Inj) 1 mg OTHER PRN PRN PRN Reason: For hypoglycemia Insulin Aspart (Novolog Insulin Correctional Sugar Inj) 0 unit SQ [facility]; Protocol Last Admin: 07/30/18 13:23 Dose: Not Given Ketorolac Tromethamine (Toradol Inj) 15 mg IV.PUSH Q6H PRN PRN Reason: SEE LABEL COMMENTS Stop: 07/30/18 18:00 Last Admin: 07/30/18 03:45 Dose: 15 mg Lactulose (Lactulose Liq) 30 ml PO DAILY PRN PRN Reason: SEVERE CONSITIPATION Metoprolol Tartrate (Lopressor) 12.5 mg PO [facility] Stop: 07/31/18 12:47 Last Admin: 07/28/18 08:46 Dose: 12.5 mg Multivitamins/Minerals (Theragran-M) 1 tab PO DAILY [facility] Last Admin: 07/30/18 09:14 Dose: 1 tab Ondansetron HCl (Zofran Inj) 4 mg IV.PUSH Q6H PRN PRN Reason: NAUSEA OR VOMITING Oxycodone/Acetaminophen (Percocet 5/325 Mg) 1 tab PO Q3H PRN PRN Reason: PAIN SCALE 1 TO 5 Last Admin: 07/29/18 21:29 Dose: 1 tab Oxycodone/Acetaminophen (Percocet 5/325 Mg) 2 tab PO Q4H PRN PRN Reason: Acute Pain Last Admin: 07/30/18 09:15 Dose: 2 tab Pantoprazole Sodium (Protonix) 40 mg PO DAILY@06 [facility] Last Admin: 07/30/18 05:41 Dose: 40 mg Polyethylene Glycol (Miralax) 17 gm PO DAILY [facility] Last Admin: 07/30/18 09:14 Dose: 17 gm Sennosides (Senokot) 8.6 mg PO HS [facility] Last Admin: 07/29/18 21:28 Dose: 8.6 mg Sodium Biphosphate/Sodium Phosphate (Fleets Enema (Adult)) 118 ml RECTAL UNSCH PRN PRN Reason: SEE LABEL COMMENTS Sodium Chloride (Ns Flush) 2 ml IV.FLUSH BID [facility] Last Admin: 07/30/18 09:14 Dose: 2 ml Sodium Chloride (Ns Flush) 2 ml IV.FLUSH PRN PRN PRN Reason: FLUSH AFTER USING IV ACCESS Allergies Allergy/AdvReac Type Severity Reaction Status Date / Time penicillin G Allergy Severe Unverified 04/16/17 12:50 Home Medications Medication Instructions Recorded Confirmed Type atorvastatin [Lipitor] 40 mg PO DAILY 07/23/18 07/23/18 History esomeprazole magnesium [Nexium 07/23/18 History 24HR] Physical Exam Vital signs: Vital Signs 07/29/18 15:00 07/29/18 19:00 07/29/18 20:00 Temperature 98.1 F 98.3 F Pulse Rate 74 72 84 Respiratory Rate 18 16 Blood Pressure 114/66 114/73 Pulse Oximetry 99 97 07/29/18 20:54 07/29/18 21:00 07/29/18 22:00 Temperature Pulse Rate 57 L 86 72 Respiratory Rate 16 Blood Pressure Pulse Oximetry 97 07/29/18 23:00 07/30/18 00:00 07/30/18 01:00 Temperature 98 F Pulse Rate 77 72 76 Respiratory Rate 16 Blood Pressure 93/61 L Pulse Oximetry 93 L 07/30/18 02:00 07/30/18 03:00 07/30/18 04:00 Temperature 98.3 F Pulse Rate 80 77 78 Respiratory Rate 16 Blood Pressure 102/70 Pulse Oximetry 97 07/30/18 05:00 07/30/18 06:00 07/30/18 07:00 Temperature Pulse Rate 74 72 79 Respiratory Rate Blood Pressure 127/73 Pulse Oximetry 99 07/30/18 07:55 07/30/18 12:48 Temperature Pulse Rate 75 75 Respiratory Rate 19 18 Blood Pressure Pulse Oximetry 96 Intake & Output 07/29/18 07/30/18 07/30/18 18:59 06:59 18:59 Intake Total 840 / 840 980 / 980 Output Total 200 / 200 585 / 585 Balance 640 / 640 395 / 395 Weight 73.5 kg Intake: IV 100 / 100 500 / 500 Ofirmev Inj 1,000 mg In 100 ml 100 / 100 @ 400 mls/hr IV.SIG Q6H [facility] Rx# :[id number] Vancomycin Inj 1,000 MG In NS 500 / 500 Inj 250 ML @ 250 mls/hr IV.SIG Q12H [facility] Rx#:[id number] Oral 740 / 740 480 / 480 Output: Urine 100 / 100 425 / 425 Chest Tube Drainage 100 / 100 160 / 160 Pleural/Mediastinal 100 / 100 160 / 160 Other: Date of Last Bowel Movement 07/27/18 - Constitutional no acute distress - Routine HEENT Exam Head: Present: normocephalic - Routine Neck Exam Present: supple - Routine Respiratory Exam Present: CTA bilaterally - Routine Cardiovascular Exam Present: S1, S2 - Routine Abdominal Exam Present: soft - Routine Extremities Exam Comments: no gladys - Urinary Catheter Management Indwelling Temp Sensing Catheter Cath placed during this visit: yes, but has since been removed by the nurse Reason for continuing: Decision to DC catheter Insertion date: 07/28/18 Insertion time: 15:30 Removal date: 07/29/18 Removal time: 06:00 Results 07/30/18 06:25 07/30/18 06:25 CBC 07/29/18 07/30/18 Range/Units 04:32 06:25 WBC 14.0 H 15.9 H (4.0-11.0) th/mm3 RBC 3.58 L 3.22 L (4.50-5.90) mil/mm3 Hgb 11.0 L 10.1 L (13.0-17.0) gm/dL Hct 32.9 L 29.7 L (39.0-51.0) % Plt Count 156 154 (150-450) th/mm3 Neut # (Auto) 12.8 H (1.8-7.7) th/mm3 Lymph # (Auto) 1.4 (1.0-4.8) th/mm3 [place] # (Auto) 1.7 H (0.0-0.9) th/mm3 Eos # (Auto) 0.0 (0.0-0.4) th/mm3 Baso # (Auto) 0.0 (0.0-0.2) th/mm3 Comprehensive Metabolic Panel 07/29/18 07/30/18 Range/Units 04:32 06:25 Sodium 138 131 L (136-145) meq/L Potassium 4.3 4.5 (3.5-5.1) meq/L Chloride 108 H 102 (98-107) meq/L Carbon Dioxide 23.4 22.9 (21.0-32.0) meq/L BUN 21 H 25 H (7-18) mg/dL Creatinine 1.01 1.19 (0.60-1.30) mg/dL Calcium 8.1 L 8.4 L (8.5-10.1) mg/dL Intake and Output 07/29/18 07/30/18 07/30/18 22:59 06:59 14:59 Intake Total 990 / 990 730 / 730 Output Total 100 / 100 585 / 585 Balance 890 / 890 145 / 145 Intake: IV 250 / 250 250 / 250 Vancomycin Inj 1,000 MG In NS 250 / 250 250 / 250 Inj 250 ML @ 250 mls/hr IV.SIG Q12H [facility] Rx#:[id number] Oral 740 / 740 480 / 480 Output: Urine 100 / 100 425 / 425 Chest Tube Drainage 160 / 160 Pleural/Mediastinal 160 / 160 Other: Date of Last Bowel Movement 07/27/18 Weight 73.5 kg - Imaging and Cardiology Imaging: Impressions Chest X-Ray 07/28/18 18:01 CONCLUSION: Support apparatus in good position Stable postoperative chest. Chest X-Ray 07/29/18 05:00 CONCLUSION: Extubation. Left chest tubes and right central line unchanged. Stable mild basilar airspace disease. Assessment and Plan - Assessment (1) Coronary artery disease Code(s): I25.10 - Atherosclerotic heart disease of [place] coronary artery without angina pectoris Status: Acute Plan: 1.) CAD - pod #2 s/p cabg, continue aspirin, lipitor, lopressor, Plavix per Dr Morales (1) Coronary artery disease Qualifiers: Coronary Disease-Associated Artery/Lesion type: [place] artery [place] vs. transplanted heart: [place] heart Associated angina: with unstable angina Qualified Code(s): I25.110 - Atherosclerotic heart disease of [place] coronary artery with unstable angina pectoris
--- NOTE | 2018-07-30 17:12 | P.PNCV ---
- Note Subjective/Hospital Course: 68-year-old gentleman, who is a [place] citizen, who lives in [facility]. On 2017, he had an inferior ST-elevation myocardial infarction, while surfing . He was taken to a local hospital and received thrombolytic therapy which was not successful. He was taken to a private hospital in [place] where he underwent LHC and found to have RCA occlusion. He underwent stent placement x 4 in the RCA to restore flow. The licensed massage therapist there also recommended intervening on the LAD as a staged procedure, but the patient declined further treatment secondary to the extreme out of pocket costs. He immediately travelled back to [facility] and presented to Dr. Madrid for further treatment. He denies chest pain, dyspnea, palpitations, fever, dizziness, diaphoresis. PAST MEDICAL HISTORY: Includes myocardial infarction, pancreatitis, rotator cuff surgery.underwent a PCI through the right radial approach with 4 stents placed in the right coronary artery. Angiography also revealed a high-grade ostial LAD lesion. ECHO: EF 55 % 07/28 pt scheduled for CABG today / second case CABG x 2 SORIANO to LAD - good SVG to OM - good EVH extubated after surgery 1500cc crystalloid , 500cc cell saver , EBL 1000cc 07/29 up in chair , weaned off insulin gtt pain controlled hold on BB for now had some bradycardia this am on ASA, statin 07/30 on room air , doing well leave chest tube in today continue BB , ASA statin , plavix Objective: Vital Signs - 24 hr 07/29/18 19:00 07/29/18 20:00 07/29/18 20:54 Temperature 98.3 F Pulse Rate 72 84 57 L Respiratory Rate 16 16 Blood Pressure 114/73 Pulse Oximetry 97 97 07/29/18 21:00 07/29/18 22:00 07/29/18 23:00 Temperature 98 F Pulse Rate 86 72 77 Respiratory Rate 16 Blood Pressure 93/61 L Pulse Oximetry 93 L 07/30/18 00:00 07/30/18 01:00 07/30/18 02:00 Temperature Pulse Rate 72 76 80 Respiratory Rate Blood Pressure Pulse Oximetry 07/30/18 03:00 07/30/18 04:00 07/30/18 05:00 Temperature 98.3 F Pulse Rate 77 78 74 Respiratory Rate 16 Blood Pressure 102/70 Pulse Oximetry 97 07/30/18 06:00 07/30/18 07:00 07/30/18 07:55 Temperature Pulse Rate 72 79 75 Respiratory Rate 19 Blood Pressure 127/73 Pulse Oximetry 99 96 07/30/18 12:48 Temperature Pulse Rate 75 Respiratory Rate 18 Blood Pressure Pulse Oximetry GENERAL: A&O x 3 SKIN: Warm and dry. prevena dressing to chest , incision intact to left leg HEAD: Normocephalic. EYES: No scleral icterus. No injection or drainage. NECK: Supple, trachea midline. No JVD or lymphadenopathy. CARDIOVASCULAR: Regular rate and rhythm without murmurs, gallops, or rubs. RESPIRATORY: Breath sounds equal bilaterally. No accessory muscle use. chest tube to wall suction, no air leak / drained 160cc/ 12 hrs GASTROINTESTINAL: Abdomen soft, non-tender, nondistended. MUSCULOSKELETAL: No cyanosis, or edema. BACK: Nontender without obvious deformity. No CVA tenderness. Labs: Laboratory Results - last 12 hr 07/30/18 07/30/18 07/30/18 05:32 06:25 06:25 WBC 15.9 H RBC 3.22 L Hgb 10.1 L Hct 29.7 L MCV 92.3 MCH 31.4 MCHC 34.0 RDW 13.6 Plt Count 154 MPV 8.5 Neut % (Auto) 80.4 H Lymph % (Auto) 9.0 [place] % (Auto) 10.4 H Eos % (Auto) 0.0 Baso % (Auto) 0.2 Neut # (Auto) 12.8 H Lymph # (Auto) 1.4 [place] # (Auto) 1.7 H Eos # (Auto) 0.0 Baso # (Auto) 0.0 WBC Differential . Differential Comment Auto diff final Sodium 131 L Potassium 4.5 Chloride 102 Carbon Dioxide 22.9 Anion Gap 6 BUN 25 H Creatinine 1.19 Estimated GFR 61 L POC Glucose 144 H Random Glucose 125 H Calcium 8.4 L Magnesium 2.1 Result Diagrams: 07/30/18 06:25 07/30/18 06:25 Telemetry: NSR - Plan (1) S/P CABG (coronary artery bypass graft) Plan: ASA, statin , BB OOB pulm toileting resume plavix EKG q waves inf leads unchanged transferred to stepdown (2) Coronary artery disease (3) ST elevation (STEMI) myocardial infarction (2) Coronary artery disease Qualifiers: Coronary Disease-Associated Artery/Lesion type: [place] artery [place] vs. transplanted heart: [place] heart Associated angina: with unstable angina Qualified Code(s): I25.110 - Atherosclerotic heart disease of [place] coronary artery with unstable angina pectoris (3) ST elevation (STEMI) myocardial infarction Qualifiers: Involved coronary artery: right coronary artery Qualified Code(s): I21.11 - ST elevation (STEMI) myocardial infarction involving right coronary artery
[2018-07-31] MEDS: Insulin NovoLOG Aspart Correctional Sugar Inj SQ SCH ×4 (08:04→22:12)
[2018-07-31] MEDS: Docusate Sodium 100 MG Capsule PO SCH ×2 (08:31→21:31)
[2018-07-31] MEDS: Multivitamin/Minerals Therapeutic Tablet PO SCH (08:31)
[2018-07-31] MEDS: Polyethylene Glycol 3350 17 GM Packet PO SCH (11:54)
--- NOTE | 2018-07-31 12:05 | P.PNCA ---
Subjective Interval history: alert in nad Medications and Allergies Active Medications: Active Medications Acetaminophen (Tylenol) 650 mg PO Q4H PRN PRN Reason: Temp > 100.4 Al Hydroxide/Mg Hydroxide (Milk Of Magnesia Liq) 30 ml PO Q12H PRN PRN Reason: Mild Constipation Al Hydroxide/Mg Hydroxide (Milk Of Magnesia Liq) 30 ml PO DAILY [facility] Last Admin: 07/31/18 08:32 Dose: 30 ml Albuterol (Duoneb Neb (Prn)) 1 ampul NEB Q2HR NEB PRN PRN Reason: WHEEZING Albuterol (Duoneb Neb ([place])) 1 ampul NEB Q6HR WHILE AWAKE NEB [facility] Stop: 07/31/18 13:59 Last Admin: 07/31/18 09:11 Dose: 1 ampul Aspirin (Aspirin Chew) 81 mg PO DAILY [facility] Last Admin: 07/31/18 08:31 Dose: 81 mg Atorvastatin Calcium (Lipitor) 40 mg PO HS [facility] Last Admin: 07/30/18 20:32 Dose: 40 mg Bisacodyl (Dulcolax Supp) 10 mg RECTAL DAILY PRN PRN Reason: SEVERE CONSITIPATION Bisacodyl (Dulcolax Supp) 10 mg RECTAL PRN PRN PRN Reason: SEE LABEL COMMENTS Clopidogrel Bisulfate (Plavix) 75 mg PO DAILY [facility] Last Admin: 07/31/18 08:31 Dose: 75 mg Dextrose (D50w Vial) 50 ml IV.PUSH UNSCH PRN PRN Reason: PER HYPOGLYCEMIA PROTOCOL Docusate Sodium (Colace) 100 mg PO BID [facility] Last Admin: 07/31/18 08:31 Dose: 100 mg Glucagon (Glucagon Inj) 1 mg OTHER PRN PRN PRN Reason: For hypoglycemia Insulin Aspart (Novolog Insulin Correctional Sugar Inj) 0 unit SQ ACHS [facility]; Protocol Last Admin: 07/31/18 11:54 Dose: Not Given Lactulose (Lactulose Liq) 30 ml PO DAILY PRN PRN Reason: SEVERE CONSITIPATION Metoprolol Tartrate (Lopressor) 12.5 mg PO [employer] [facility] Stop: 07/31/18 12:47 Last Admin: 07/28/18 08:46 Dose: 12.5 mg Multivitamins/Minerals (Theragran-M) 1 tab PO DAILY [facility] Last Admin: 07/31/18 08:31 Dose: 1 tab Ondansetron HCl (Zofran Inj) 4 mg IV.PUSH Q6H PRN PRN Reason: NAUSEA OR VOMITING Oxycodone/Acetaminophen (Percocet 5/325 Mg) 1 tab PO Q3H PRN PRN Reason: PAIN SCALE 1 TO 5 Last Admin: 07/31/18 08:35 Dose: 1 tab Oxycodone/Acetaminophen (Percocet 5/325 Mg) 2 tab PO Q4H PRN PRN Reason: Acute Pain Last Admin: 07/31/18 03:39 Dose: 2 tab Pantoprazole Sodium (Protonix) 40 mg PO DAILY@06 [facility] Last Admin: 07/31/18 06:09 Dose: 40 mg Polyethylene Glycol (Miralax) 17 gm PO DAILY [facility] Last Admin: 07/31/18 11:54 Dose: 17 gm Sennosides (Senokot) 8.6 mg PO HS [facility] Last Admin: 07/30/18 20:32 Dose: 8.6 mg Sodium Biphosphate/Sodium Phosphate (Fleets Enema (Adult)) 118 ml RECTAL UNSCH PRN PRN Reason: SEE LABEL COMMENTS Sodium Chloride (Ns Flush) 2 ml IV.FLUSH BID [facility] Last Admin: 07/31/18 08:32 Dose: 2 ml Sodium Chloride (Ns Flush) 2 ml IV.FLUSH PRN PRN PRN Reason: FLUSH AFTER USING IV ACCESS Allergies Allergy/AdvReac Type Severity Reaction Status Date / Time penicillin G Allergy Severe Unverified 04/16/17 12:50 Home Medications Medication Instructions Recorded Confirmed Type atorvastatin [Lipitor] 40 mg PO DAILY 07/23/18 07/23/18 History esomeprazole magnesium [Nexium 07/23/18 History 24HR] Physical Exam Vital signs: Vital Signs 07/30/18 12:48 07/30/18 13:00 07/30/18 14:00 Temperature Pulse Rate 75 76 80 Respiratory Rate 18 Blood Pressure Pulse Oximetry 07/30/18 15:00 07/30/18 16:00 07/30/18 18:00 Temperature 98 F Pulse Rate 80 80 80 Respiratory Rate Blood Pressure 102/57 L Pulse Oximetry 98 07/30/18 19:00 07/30/18 19:22 07/30/18 20:00 Temperature 97.4 F L Pulse Rate 76 77 Respiratory Rate Blood Pressure 103/60 Pulse Oximetry 98 99 99 07/30/18 21:00 07/30/18 22:00 07/30/18 23:00 Temperature 98 F Pulse Rate 76 70 76 Respiratory Rate Blood Pressure 127/72 Pulse Oximetry 98 07/31/18 00:00 07/31/18 01:00 07/31/18 02:00 Temperature Pulse Rate 71 69 73 Respiratory Rate Blood Pressure Pulse Oximetry 07/31/18 03:00 07/31/18 04:00 07/31/18 05:00 Temperature 98 F Pulse Rate 75 63 70 Respiratory Rate Blood Pressure 102/62 Pulse Oximetry 97 07/31/18 06:00 07/31/18 08:23 07/31/18 09:14 Temperature 98.2 F Pulse Rate 67 73 70 Respiratory Rate 16 Blood Pressure 105/67 Pulse Oximetry 98 98 07/31/18 11:52 Temperature 98 F Pulse Rate 72 Respiratory Rate 17 Blood Pressure 116/69 Pulse Oximetry 97 Intake & Output 07/30/18 07/31/18 07/31/18 18:59 06:59 18:59 Intake Total 2560 / 2560 480 / 480 Output Total 1435 / 1435 820 / 820 Balance 1125 / 1125 -340 / -340 Intake: Oral 260 / 260 480 / 480 Anesthesia Amount 1500 / 1500 Cell Saver Amount 800 / 800 Output: Urine 425 / 425 750 / 750 Urine Amount (Catheter) 850 / 850 Indwelling Temp Sensing 850 / 850 Catheter Chest Tube Drainage 160 / 160 70 / 70 Pleural/Mediastinal 160 / 160 70 / 70 Other: # Voids 4 Date of Last Bowel Movement 07/27/18 07/27/18 07/27/18 # Bowel Movements 3 - Constitutional no acute distress - Routine HEENT Exam Head: Present: normocephalic - Routine Neck Exam Present: supple - Routine Respiratory Exam Present: CTA bilaterally - Routine Cardiovascular Exam Present: S1, S2 - Routine Abdominal Exam Present: soft - Routine Extremities Exam Comments: no gladys - Urinary Catheter Management Indwelling Temp Sensing Catheter Cath placed during this visit: yes, but has since been removed by the nurse Reason for continuing: Decision to DC catheter Insertion date: 07/28/18 Insertion time: 15:30 Removal date: 07/29/18 Removal time: 06:00 Results 07/30/18 06:25 07/30/18 06:25 CBC 07/30/18 Range/Units 06:25 WBC 15.9 H (4.0-11.0) th/mm3 RBC 3.22 L (4.50-5.90) mil/mm3 Hgb 10.1 L (13.0-17.0) gm/dL Hct 29.7 L (39.0-51.0) % Plt Count 154 (150-450) th/mm3 Neut # (Auto) 12.8 H (1.8-7.7) th/mm3 Lymph # (Auto) 1.4 (1.0-4.8) th/mm3 [place] # (Auto) 1.7 H (0.0-0.9) th/mm3 Eos # (Auto) 0.0 (0.0-0.4) th/mm3 Baso # (Auto) 0.0 (0.0-0.2) th/mm3 Comprehensive Metabolic Panel 07/30/18 Range/Units 06:25 Sodium 131 L (136-145) meq/L Potassium 4.5 (3.5-5.1) meq/L Chloride 102 (98-107) meq/L Carbon Dioxide 22.9 (21.0-32.0) meq/L BUN 25 H (7-18) mg/dL Creatinine 1.19 (0.60-1.30) mg/dL Calcium 8.4 L (8.5-10.1) mg/dL Intake and Output 07/30/18 07/31/18 07/31/18 22:59 06:59 14:59 Intake Total 2560 / 2560 480 / 480 Output Total 1435 / 1435 820 / 820 Balance 1125 / 1125 -340 / -340 Intake: Oral 260 / 260 480 / 480 Anesthesia Amount 1500 / 1500 Cell Saver Amount 800 / 800 Output: Urine 425 / 425 750 / 750 Urine Amount (Catheter) 850 / 850 Indwelling Temp Sensing 850 / 850 Catheter Chest Tube Drainage 160 / 160 70 / 70 Pleural/Mediastinal 160 / 160 70 / 70 Other: # Voids 4 Date of Last Bowel Movement 07/27/18 07/27/18 07/27/18 # Bowel Movements 3 Assessment and Plan - Assessment (1) Coronary artery disease Code(s): I25.10 - Atherosclerotic heart disease of [place] coronary artery without angina pectoris Status: Acute Plan: 1.) CAD - pod #3 s/p cabg, continue aspirin, lipitor, lopressor, Plavix (1) Coronary artery disease Qualifiers: Coronary Disease-Associated Artery/Lesion type: [place] artery [place] vs. transplanted heart: [place] heart Associated angina: with unstable angina Qualified Code(s): I25.110 - Atherosclerotic heart disease of [place] coronary artery with unstable angina pectoris
--- NOTE | 2018-07-31 14:55 | P.PNFP ---
Subjective Interval history: doing better her reports. CT is out, stewart is out. walking about. discussed with RN. Results - Labs Result diagrams: 07/30/18 06:25 07/30/18 06:25 Abnormal lab results 07/28/18 07/30/18 07/31/18 Range/Units 10:43 20:45 11:49 POC Glucose 132 H 111 H (68-110) mg/dl MTS Gel Crossmatch See Detail Physical Exam Vital signs: Vital Signs 07/30/18 15:00 07/30/18 16:00 07/30/18 18:00 Temperature 98 F Pulse Rate 80 80 80 Respiratory Rate Blood Pressure 102/57 L Pulse Oximetry 98 07/30/18 19:00 07/30/18 19:22 07/30/18 20:00 Temperature 97.4 F L Pulse Rate 76 77 Respiratory Rate Blood Pressure 103/60 Pulse Oximetry 98 99 99 07/30/18 21:00 07/30/18 22:00 07/30/18 23:00 Temperature 98 F Pulse Rate 76 70 76 Respiratory Rate Blood Pressure 127/72 Pulse Oximetry 98 07/31/18 00:00 07/31/18 01:00 07/31/18 02:00 Temperature Pulse Rate 71 69 73 Respiratory Rate Blood Pressure Pulse Oximetry 07/31/18 03:00 07/31/18 04:00 07/31/18 05:00 Temperature 98 F Pulse Rate 75 63 70 Respiratory Rate Blood Pressure 102/62 Pulse Oximetry 97 07/31/18 06:00 07/31/18 08:23 07/31/18 09:14 Temperature 98.2 F Pulse Rate 67 73 70 Respiratory Rate 16 Blood Pressure 105/67 Pulse Oximetry 98 98 07/31/18 11:52 Temperature 98 F Pulse Rate 72 Respiratory Rate 17 Blood Pressure 116/69 Pulse Oximetry 97 Intake & Output 07/30/18 07/31/18 07/31/18 18:59 06:59 18:59 Intake Total 2560 / 2560 480 / 480 Output Total 1435 / 1435 820 / 820 Balance 1125 / 1125 -340 / -340 Weight 78.1 kg Intake: Oral 260 / 260 480 / 480 Anesthesia Amount 1500 / 1500 Cell Saver Amount 800 / 800 Output: Urine 425 / 425 750 / 750 Urine Amount (Catheter) 850 / 850 Indwelling Temp Sensing 850 / 850 Catheter Chest Tube Drainage 160 / 160 70 / 70 Pleural/Mediastinal 160 / 160 70 / 70 Other: # Voids 4 Date of Last Bowel Movement 07/27/18 07/27/18 07/27/18 # Bowel Movements 3 - Constitutional chronically ill appearing - Routine HEENT Exam Head: Present: normocephalic Eye: Present: EOMI - Routine Neck Exam Present: supple - Routine Respiratory Exam Present: CTA bilaterally - Routine Cardiovascular Exam Present: RRR, S1, S2 - Routine Abdominal Exam Present: soft, normoactive bowel sounds - Routine Skin Exam Present: intact, scars, wounds - Routine Neurological Exam Present: alert, oriented X3 - Detailed Neurological Exam: Coma Scale Eye Opening: Spontaneous Verbal Response: Oriented Motor Response: Obey commands [place] Coma Scale Total: 15 - Routine Psychiatric Exam Present: normal affect - Urinary Catheter Management Indwelling Temp Sensing Catheter Cath placed during this visit: yes, but has since been removed by the nurse Urethral indwelling: No Reason for continuing: Decision to DC catheter Insertion date: 07/28/18 Insertion time: 15:30 Removal date: 07/29/18 Removal time: 06:00 Assessment and Plan - Assessment (1) Coronary artery disease Code(s): I25.10 - Atherosclerotic heart disease of [place] coronary artery without angina pectoris Status: Acute (2) ST elevation (STEMI) myocardial infarction Code(s): I21.3 - ST elevation (STEMI) myocardial infarction of unspecified site Status: Acute - Assessment and Plan A/P- 68-year-old male with a history of coronary artery disease who presented to the emergency department on 07/24/2018 due to chest pressure. Patient was recently in [facility] where he developed chest pain and was subsequently diagnosed with right-sided myocardial infarction requiring 4 stents. He was discharged from the hospital on Saturday and he flew back to [place] after that. Due to intermittent chest pain that radiates to his left arm, patient decided to come to the emergency department. His troponin was 4.38 admission. STEMI: s/p CABG Jul 28, CT out, likely dc tomorrow, see me in my office saturday please. Chest pain Multivessel CAD. bradycardia: HPLD: statin COPD Smoker: discussed cessation Anemia, chronic dz and blood loss Pancreatitis, recurrent hx (1) Coronary artery disease Qualifiers: Coronary Disease-Associated Artery/Lesion type: [place] artery [place] vs. transplanted heart: [place] heart Associated angina: with unstable angina Qualified Code(s): I25.110 - Atherosclerotic heart disease of [place] coronary artery with unstable angina pectoris (2) ST elevation (STEMI) myocardial infarction Qualifiers: Involved coronary artery: right coronary artery Qualified Code(s): I21.11 - ST elevation (STEMI) myocardial infarction involving right coronary artery
--- NOTE | 2018-07-31 17:20 | P.PNCV ---
- Note Subjective/Hospital Course: 68-year-old gentleman, who is a [place] citizen, who lives in [facility]. On 2017, he had an inferior ST-elevation myocardial infarction, while surfing . He was taken to a local hospital and received thrombolytic therapy which was not successful. He was taken to a private hospital in [place] where he underwent LHC and found to have RCA occlusion. He underwent stent placement x 4 in the RCA to restore flow. The labor mediator there also recommended intervening on the LAD as a staged procedure, but the patient declined further treatment secondary to the extreme out of pocket costs. He immediately travelled back to [facility] and presented to Dr. Madrid for further treatment. He denies chest pain, dyspnea, palpitations, fever, dizziness, diaphoresis. PAST MEDICAL HISTORY: Includes myocardial infarction, pancreatitis, rotator cuff surgery.underwent a PCI through the right radial approach with 4 stents placed in the right coronary artery. Angiography also revealed a high-grade ostial LAD lesion. ECHO: EF 55 % 07/28 pt scheduled for CABG today / second case CABG x 2 SORIANO to LAD - good SVG to OM - good EVH extubated after surgery 1500cc crystalloid , 500cc cell saver , EBL 1000cc 07/29 up in chair , weaned off insulin gtt pain controlled hold on BB for now had some bradycardia this am on ASA, statin 07/30 on room air , doing well leave chest tube in today continue BB , ASA statin , plavix 07/31 mild leukocytosis / pulm toileting discussed with pt chest tube dc without difficulty possible dc in am will need RX written , unsure of pharmacy Objective: Vital Signs - 24 hr 07/30/18 18:00 07/30/18 19:00 07/30/18 19:22 Temperature 98 F 97.4 F L Pulse Rate 80 76 Respiratory Rate Blood Pressure 103/60 Pulse Oximetry 98 99 07/30/18 20:00 07/30/18 21:00 07/30/18 22:00 Temperature Pulse Rate 77 76 70 Respiratory Rate Blood Pressure Pulse Oximetry 99 07/30/18 23:00 07/31/18 00:00 07/31/18 01:00 Temperature 98 F Pulse Rate 76 71 69 Respiratory Rate Blood Pressure 127/72 Pulse Oximetry 98 07/31/18 02:00 07/31/18 03:00 07/31/18 04:00 Temperature 98 F Pulse Rate 73 75 63 Respiratory Rate Blood Pressure 102/62 Pulse Oximetry 97 07/31/18 05:00 07/31/18 06:00 07/31/18 07:00 Temperature Pulse Rate 70 67 65 Respiratory Rate Blood Pressure Pulse Oximetry 07/31/18 08:00 07/31/18 08:23 07/31/18 09:00 Temperature 98.2 F Pulse Rate 78 73 84 Respiratory Rate Blood Pressure 105/67 Pulse Oximetry 98 07/31/18 09:14 07/31/18 10:00 07/31/18 11:00 Temperature Pulse Rate 70 76 65 Respiratory Rate 16 Blood Pressure Pulse Oximetry 98 07/31/18 11:52 07/31/18 12:00 07/31/18 13:00 Temperature 98 F Pulse Rate 72 78 78 Respiratory Rate 17 Blood Pressure 116/69 Pulse Oximetry 97 07/31/18 14:00 07/31/18 15:00 07/31/18 15:44 Temperature 98.2 F Pulse Rate 76 75 73 Respiratory Rate 17 Blood Pressure 114/62 Pulse Oximetry 97 07/31/18 16:13 07/31/18 16:25 Temperature Pulse Rate 75 Respiratory Rate 17 Blood Pressure Pulse Oximetry GENERAL: A&O x 3 SKIN: Warm and dry. prevena dressing to chest , incision intact to left leg HEAD: Normocephalic. EYES: No scleral icterus. No injection or drainage. NECK: Supple, trachea midline. No JVD or lymphadenopathy. CARDIOVASCULAR: Regular rate and rhythm without murmurs, gallops, or rubs. RESPIRATORY: Breath sounds equal bilaterally. No accessory muscle use. GASTROINTESTINAL: Abdomen soft, non-tender, nondistended. MUSCULOSKELETAL: No cyanosis, or edema. BACK: Nontender without obvious deformity. No CVA tenderness. Labs: Laboratory Results - last 12 hr 07/28/18 07/31/18 07/31/18 10:43 07:59 11:49 POC Glucose 97 111 H MTS Gel Crossmatch See Detail Result Diagrams: 07/30/18 06:25 07/30/18 06:25 Telemetry: NSR - Plan (1) S/P CABG (coronary artery bypass graft) Plan: ASA, statin , BB OOB pulm toileting resume plavix EKG q waves inf leads unchanged chest tube dc without difficulty possible dc in am (2) Coronary artery disease (3) ST elevation (STEMI) myocardial infarction (2) Coronary artery disease Qualifiers: Coronary Disease-Associated Artery/Lesion type: [place] artery [place] vs. transplanted heart: [place] heart Associated angina: with unstable angina Qualified Code(s): I25.110 - Atherosclerotic heart disease of [place] coronary artery with unstable angina pectoris (3) ST elevation (STEMI) myocardial infarction Qualifiers: Involved coronary artery: right coronary artery Qualified Code(s): I21.11 - ST elevation (STEMI) myocardial infarction involving right coronary artery
[2018-08-01 05:28] LABS: Calcium 8.8 mg/dL (8.5-10.1); Carbon Dioxide 28.9 meq/L (21.0-32.0); Potassium 4.2 meq/L (3.5-5.1)
--- NOTE | 2018-08-01 06:44 | XR ---
EXAM DATE: 08/01/2018 5:55 AM EST AGE/SEX: 68 years / Male INDICATIONS: Chest tube removal. Rule out PTX. CLINICAL DATA: This is the patient's subsequent encounter. Patient reports that signs and symptoms h ave been present for 1 week and indicates a pain score of Nonresponsive. MEDICAL/SURGICAL HISTORY: . Myocardial infarction. Pancreatitis. Smoker. CAD. . Stent. Chest t ube. COMPARISON: [facility] [place], CHEST 1V SINGLE AP, 07/29/2018. . FINDINGS: Portable AP view of the chest demonstrates cardiac silhouette size at the upper limits for normal in this patient post median sternotomy. EKG lines overlie the patient. There has been interval removal o f the right IJ line and left chest tube. No pneumothorax is identified. There is mild bibasilar airsp tom opacity, left greater than right. CONCLUSION: 1. No pneumothorax is identified following left chest tube removal. 2. Underinflation with bibasilar opacity, left greater than right, representing either atelectasis o r consolidation. Electronically signed by: Jayson oPnce MD 08/01/2018 6:42 AM EST
[2018-08-01 07:12] LABS: Baso % (Auto) 0.5 % (0.0-2.0); Eos # (Auto) 0.1 th/mm3 (0.0-0.4); Eos % (Auto) 1.2 % (0.0-4.0); Hematocrit 34.8 % (39.0-51.0); Hemoglobin 11.3 gm/dL (13.0-17.0); Lymph # (Auto) 2.1 th/mm3 (1.0-4.8); Lymph % (Auto) 20.2 % (9.0-44.0); Mean Corpuscular HGB Conc 32.6 % (32.0-36.0); Mean Corpuscular Hemoglobin 31.1 pg (27.0-34.0); Mean Corpuscular Volume 95.3 fL (80.0-100.0); Mean Platelet Volume 8.2 fL (7.0-11.0); Mono % (Auto) 9.4 % (0.0-8.0); Neut # (Auto) 7.1 th/mm3 (1.8-7.7); Neut % (Auto) 68.7 % (16.0-70.0); Platelet Count 179 th/mm3 (150-450); Red Blood Count 3.65 mil/mm3 (4.50-5.90); Red Cell Distribution Width 14.2 % (11.6-17.2); White Blood Count 10.3 th/mm3 (4.0-11.0)
[2018-08-01] MEDS: Insulin NovoLOG Aspart Correctional Sugar Inj SQ SCH ×2 (08:53→12:28)
[2018-08-01] MEDS: Docusate Sodium 100 MG Capsule PO SCH (09:00)
[2018-08-01] MEDS: Polyethylene Glycol 3350 17 GM Packet PO SCH (09:04)
[2018-08-01] MEDS: Multivitamin/Minerals Therapeutic Tablet PO SCH (09:04)
--- NOTE | 2018-08-01 09:59 | P.PNFP ---
Subjective Interval history: up and packing, wants to dc. discussed with CT surgery team. no complaints. Results - Labs Result diagrams: 08/01/18 04:26 08/01/18 04:26 Abnormal lab results 07/31/18 07/31/18 08/01/18 Range/Units 11:49 19:51 04:26 RBC 3.65 L (4.50-5.90) mil/mm3 Hgb 11.3 L (13.0-17.0) gm/dL Hct 34.8 L (39.0-51.0) % Delta % (Auto) 9.4 H (0.0-8.0) % [place] # (Auto) 1.0 H (0.0-0.9) th/mm3 Estimated GFR (>89) mL/min POC Glucose 111 H 124 H (68-110) mg/dl 08/01/18 08/01/18 Range/Units 04:26 08:31 RBC (4.50-5.90) mil/mm3 Hgb (13.0-17.0) gm/dL Hct (39.0-51.0) % Delta % (Auto) (0.0-8.0) % [place] # (Auto) (0.0-0.9) th/mm3 Estimated GFR 58 L (>89) mL/min POC Glucose 176 H (68-110) mg/dl Short CBC 08/01/18 Range/Units 04:26 WBC 10.3 (4.0-11.0) th/mm3 Hgb 11.3 L (13.0-17.0) gm/dL Hct 34.8 L (39.0-51.0) % Plt Count 179 (150-450) th/mm3 [facility] 08/01/18 04:26 Sodium 138 Potassium 4.2 Chloride 104 Carbon Dioxide 28.9 BUN 17 Creatinine 1.25 Calcium 8.8 - Imaging Impressions Chest X-Ray 08/01/18 06:00 CONCLUSION: 1. No pneumothorax is identified following left chest tube removal. 2. Underinflation with bibasilar opacity, left greater than right, representing either atelectasis or consolidation. Physical Exam Vital signs: Vital Signs 07/31/18 10:00 07/31/18 11:00 07/31/18 11:52 Temperature 98 F Pulse Rate 76 65 72 Respiratory Rate 17 Blood Pressure 116/69 Pulse Oximetry 97 07/31/18 12:00 07/31/18 13:00 07/31/18 14:00 Temperature Pulse Rate 78 78 76 Respiratory Rate Blood Pressure Pulse Oximetry 07/31/18 15:00 07/31/18 15:44 07/31/18 16:13 Temperature 98.2 F Pulse Rate 75 73 75 Respiratory Rate 17 Blood Pressure 114/62 Pulse Oximetry 97 07/31/18 16:25 07/31/18 17:00 07/31/18 18:00 Temperature Pulse Rate 76 82 Respiratory Rate 17 Blood Pressure Pulse Oximetry 07/31/18 19:00 07/31/18 20:00 07/31/18 21:00 Temperature 97.7 F Pulse Rate 83 82 81 Respiratory Rate 18 Blood Pressure 126/70 Pulse Oximetry 98 07/31/18 21:31 07/31/18 22:00 07/31/18 23:00 Temperature 98.3 F Pulse Rate 77 78 Respiratory Rate 16 18 Blood Pressure 107/62 Pulse Oximetry 98 08/01/18 00:00 08/01/18 01:00 08/01/18 02:00 Temperature Pulse Rate 75 74 74 Respiratory Rate Blood Pressure Pulse Oximetry 08/01/18 03:00 08/01/18 04:00 08/01/18 05:00 Temperature 98.5 F Pulse Rate 70 73 75 Respiratory Rate 18 Blood Pressure 100/64 Pulse Oximetry 97 08/01/18 05:50 Temperature Pulse Rate 75 Respiratory Rate Blood Pressure Pulse Oximetry Intake & Output 07/31/18 08/01/18 08/01/18 18:59 06:59 18:59 Intake Total 480 / 480 720 / 720 Output Total 900 / 900 400 / 400 Balance -420 / -420 320 / 320 Weight 78.1 kg 76.4 kg Intake: Oral 480 / 480 720 / 720 Output: Urine 900 / 900 400 / 400 Other: Date of Last Bowel Movement 07/27/18 08/01/18 # Bowel Movements 1 - Constitutional no acute distress - Routine HEENT Exam Head: Present: normocephalic Eye: Present: EOMI - Routine Respiratory Exam Present: CTA bilaterally - Routine Cardiovascular Exam Present: RRR - Routine Abdominal Exam Present: soft - Routine Skin Exam Present: intact - Routine Neurological Exam Present: alert, oriented X3 - Detailed Neurological Exam: Coma Scale Eye Opening: Spontaneous - Routine Psychiatric Exam Present: normal affect - Urinary Catheter Management Indwelling Temp Sensing Catheter Cath placed during this visit: yes, but has since been removed by the nurse Urethral indwelling: No Reason for continuing: Decision to DC catheter Insertion date: 07/28/18 Insertion time: 15:30 Removal date: 07/29/18 Removal time: 06:00 Assessment and Plan - Assessment (1) Coronary artery disease Code(s): I25.10 - Atherosclerotic heart disease of [place] coronary artery without angina pectoris Status: Acute (2) ST elevation (STEMI) myocardial infarction Code(s): I21.3 - ST elevation (STEMI) myocardial infarction of unspecified site Status: Acute - Assessment and Plan A/P- 68-year-old male with a history of coronary artery disease who presented to the emergency department on 07/24/2018 due to chest pressure. Patient was recently in [facility] where he developed chest pain and was subsequently diagnosed with right-sided myocardial infarction requiring 4 stents. He was discharged from the hospital on Saturday and he flew back to [place] after that. Due to intermittent chest pain that radiates to his left arm, patient decided to come to the emergency department. His troponin was 4.38 admission. STEMI: s/p CABG Jul 28, CT out, likely dc, see me in my office saturday please. Chest pain Multivessel CAD. bradycardia: HPLD: statin COPD Smoker: discussed cessation Anemia, chronic dz and blood loss Pancreatitis, recurrent hx (1) Coronary artery disease Qualifiers: Coronary Disease-Associated Artery/Lesion type: [place] artery [place] vs. transplanted heart: [place] heart Associated angina: with unstable angina Qualified Code(s): I25.110 - Atherosclerotic heart disease of [place] coronary artery with unstable angina pectoris (2) ST elevation (STEMI) myocardial infarction Qualifiers: Involved coronary artery: right coronary artery Qualified Code(s): I21.11 - ST elevation (STEMI) myocardial infarction involving right coronary artery
[2018-08-01 10:46] VITALS: RESP 16
[2018-08-01 12:52] VITALS: PULSE 84
--- NOTE | 2018-08-01 12:52 | P.DS ---
Date of admission: 07/23/18 23:55 Primary care physician: Juan Sebastian MD Attending physician on discharge: Gabriela Morales Anticipated date of discharge: 08/01/18 Brief History from admission: 68-year-old gentleman, who is a [place] citizen, who lives in [facility]. On 2017, he had an inferior ST-elevation myocardial infarction, while surfing . He was taken to a local hospital and received thrombolytic therapy which was not successful. He was taken to a private hospital in [place] where he underwent LHC and found to have RCA occlusion. He underwent stent placement x 4 in the RCA to restore flow. The office services specialist there also recommended intervening on the LAD as a staged procedure, but the patient declined further treatment secondary to the extreme out of pocket costs. He immediately travelled back to [facility] and presented to Dr. Madrid for further treatment. He denies chest pain, dyspnea, palpitations, fever, dizziness, diaphoresis. PAST MEDICAL HISTORY: Includes myocardial infarction, pancreatitis, rotator cuff surgery.underwent a PCI through the right radial approach with 4 stents placed in the right coronary artery. Angiography also revealed a high-grade ostial LAD lesion. ECHO: EF 55 % Patient update on day of discharge: pt doing well , on room air, coughing up some nam color sputum will rx for levaquin x [address] home with instructions DS: Diagnosis - Discharge Diagnosis (1) S/P CABG (coronary artery bypass graft) Status: Acute (2) Coronary artery disease Status: Acute (3) ST elevation (STEMI) myocardial infarction Status: Acute (4) Chronic anemia Status: Chronic (5) Hx of pancreatitis Status: Chronic (6) Hyperlipidemia Status: Chronic DS: Medications - Discharge Medications Prescriptions: aspirin [Adult Low Dose Aspirin] 81 mg PO DAILY #30 tab clopidogrel [Plavix] 75 mg PO DAILY #30 tab docusate sodium [DOK] 100 mg PO BID #30 cap levofloxacin [Levaquin] 750 mg PO DAILY #5 tab nmxgcina-fnmd-FN-calcium-mins [Thera M Plus (ferrous fumarat)] 1 tab PO DAILY # 30 tab oxycodone-acetaminophen 1 tab PO Q4H PRN #40 tab PRN Reason: Pain Scale 1 To 5 DS: Summary Hospital Course: 07/28 pt scheduled for CABG today / second case CABG x 2 SORIANO to LAD - good SVG to OM - good EVH extubated after surgery 1500cc crystalloid , 500cc cell saver , EBL 1000cc 07/29 up in chair , weaned off insulin gtt pain controlled hold on BB for now had some bradycardia this am on ASA, statin 07/30 on room air , doing well leave chest tube in today continue BB , ASA statin , plavix 07/31 mild leukocytosis / pulm toileting discussed with pt chest tube dc without difficulty possible dc in am will need RX written , unsure of pharmacy - Time Spent with Patient Total time spent providing and/or coordinating discharge services: Greater than 30 minutes - Quality: VTE Deep Vein Thrombosis/Pulmonary Embolism Present on Admission: No Exam Vital signs: Vital Signs 07/31/18 13:00 07/31/18 14:00 07/31/18 15:00 Temperature Pulse Rate 78 76 75 Respiratory Rate Blood Pressure Pulse Oximetry 07/31/18 15:44 07/31/18 16:13 07/31/18 16:25 Temperature 98.2 F Pulse Rate 73 75 Respiratory Rate 17 17 Blood Pressure 114/62 Pulse Oximetry 97 07/31/18 17:00 07/31/18 18:00 07/31/18 19:00 Temperature 97.7 F Pulse Rate 76 82 83 Respiratory Rate 18 Blood Pressure 126/70 Pulse Oximetry 98 07/31/18 20:00 07/31/18 21:00 07/31/18 21:31 Temperature Pulse Rate 82 81 Respiratory Rate 16 Blood Pressure Pulse Oximetry 07/31/18 22:00 07/31/18 23:00 08/01/18 00:00 Temperature 98.3 F Pulse Rate 77 78 75 Respiratory Rate 18 Blood Pressure 107/62 Pulse Oximetry 98 08/01/18 01:00 08/01/18 02:00 08/01/18 03:00 Temperature 98.5 F Pulse Rate 74 74 70 Respiratory Rate 18 Blood Pressure 100/64 Pulse Oximetry 97 08/01/18 04:00 08/01/18 05:00 08/01/18 05:50 Temperature Pulse Rate 73 75 75 Respiratory Rate Blood Pressure Pulse Oximetry 08/01/18 07:00 08/01/18 08:00 08/01/18 09:00 Temperature 97.9 F Pulse Rate 81 81 82 Respiratory Rate 16 Blood Pressure 115/67 Pulse Oximetry 99 99 08/01/18 10:00 Temperature Pulse Rate 88 Respiratory Rate Blood Pressure Pulse Oximetry Intake & Output 07/31/18 08/01/18 08/01/18 18:59 06:59 18:59 Intake Total 480 / 480 720 / 720 Output Total 900 / 900 400 / 400 Balance -420 / -420 320 / 320 Weight 78.1 kg 76.4 kg Intake: Oral 480 / 480 720 / 720 Output: Urine 900 / 900 400 / 400 Other: Date of Last Bowel Movement 07/27/18 08/01/18 08/01/18 # Bowel Movements 1 - Constitutional no acute distress - Routine HEENT Exam Head: Present: normocephalic Eye: Present: EOMI, PERRL, normal accommodation - Routine Chest/Breast/Axilla Exam Chest wall: Present: tenderness - Routine Respiratory Exam Comments: faint crackles left lower bases - Routine Cardiovascular Exam Present: RRR, S1, S2 - Routine Abdominal Exam Present: soft, normoactive bowel sounds - Routine Extremities Exam Present: full ROM, pulses intact - Routine Skin Exam Present: intact, wounds Comments: prevena to chest incision intact to left leg - Routine Neurological Exam Present: alert, oriented X3, CN II-XII intact Results Procedures completed during hospitalization: Patient underwent 4 cardiac stent placement in [facility] prior to coming to [place]. Date of procedure: 07/28/18 Procedure: CABG x 2 SORIANO to LAD - good SVG to OM - good EVH Labs on day of discharge: Labs from last 24 hours 08/01/18 08/01/18 08/01/18 12:08 08:31 04:26 WBC RBC Hgb Hct MCV MCH MCHC RDW Plt Count MPV Neut % (Auto) Lymph % (Auto) [place] % (Auto) Eos % (Auto) Baso % (Auto) Neut # (Auto) Lymph # (Auto) [place] # (Auto) Eos # (Auto) Baso # (Auto) WBC Differential Differential Comment Sodium 138 Potassium 4.2 Chloride 104 Carbon Dioxide 28.9 Anion Gap 5 BUN 17 Creatinine 1.25 Estimated GFR 58 L POC Glucose 80 176 H Random Glucose 94 Calcium 8.8 08/01/18 07/31/18 07/31/18 04:26 19:51 16:28 WBC 10.3 RBC 3.65 L Hgb 11.3 L Hct 34.8 L MCV 95.3 MCH 31.1 MCHC 32.6 RDW 14.2 Plt Count 179 MPV 8.2 Neut % (Auto) 68.7 Lymph % (Auto) 20.2 [place] % (Auto) 9.4 H Eos % (Auto) 1.2 Baso % (Auto) 0.5 Neut # (Auto) 7.1 Lymph # (Auto) 2.1 [place] # (Auto) 1.0 H Eos # (Auto) 0.1 Baso # (Auto) 0.0 WBC Differential . Differential Comment Auto diff final Sodium Potassium Chloride Carbon Dioxide Anion Gap BUN Creatinine Estimated GFR POC Glucose 124 H 100 Random Glucose Calcium - Impressions ITS Impressions Carotid Doppler Study 07/26/18 00:00 CONCLUSION: 1. 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 2. Left Internal Carotid Artery: Findings indicate near occlusion. Lower Extremity Ultrasound 07/26/18 00:00 CONCLUSION: 1. Lower extremity venous mapping, as above. Venous Doppler Study 07/26/18 00:00 CONCLUSION: 1. No sonographic evidence for lower extremity DVT. Chest X-Ray 08/01/18 06:00 CONCLUSION: 1. No pneumothorax is identified following left chest tube removal. 2. Underinflation with bibasilar opacity, left greater than right, representing either atelectasis or consolidation. CARDIOLOGY REPORT - Continued Ordered By: Matty Madrid MD MR#: [id number] : 1950 Attended By: Yasmine Whaley DO Loc: [facility] Age: 68 Copy To: Juan Sebastian MD Pt Name: Tulio Pitts Bed: 462-A Order #: [id number] Page 3 of 3 Signed Report #:[id number] Provider [facility] [address] [place] [address] [place] [id number] Ordered By: Matty Madrid MD MR#: [id number] : 1950 Attended By: Yasmine Whaley DO Loc: [facility] Age: 68 Copy To: Juan Sebastian MD Bed: 462-A Order #: [id number] Page 1 of 3 Signed Report #:[id number] Provider GisselleTulio Chen Echo 2D Comp with doppler 07/24/18 Indication: CORONARY ATHEROSCLEROSIS CONCLUSIONS Normal left ventricular size. Wall thickness is normal. The left ventricular systolic function is normal with an estimated ejection fraction in the range of 55-60%. Trace mitral valve regurgitation. BP: / HR: Rhythm: Sinus MEASUREMENTS (Male / Female) Normal Values Technical Quality:Fair 2D ECHO LV Diastolic Diameter PLAX 5.3 cm 4.2 - 5.9 / 3.9 - 5.3 cm LV Systolic Diameter PLAX 4.0 cm IVS Diastolic Thickness 0.8 cm 0.6 - 1.0 / 0.6 - 0.9 cm LVPW Diastolic Thickness 0.8 cm 0.6 - 1.0 / 0.6 - 0.9 cm LV Relative Wall Thickness 0.3 RV Internal Dim ED PLAX 2.8 cm LVOT Diameter 2.1 cm Aortic Root Diameter 3.8 cm LA Systolic Diameter LX 3.7 cm 3.0 - 4.0 / 2.7 - 3.8 cm M-MODE AV Cusp Separation MM 2.1 cm DOPPLER AV Peak Velocity 123.0 cm/s AV Peak Gradient 6.1 mmHg AV Mean Gradient 3.0 mmHg AV Velocity Time Integral 21.1 cm LVOT Peak Velocity 100.0 cm/s LVOT Peak Gradient 4.0 mmHg LVOT Velocity Time Integral 19.6 cm AV Area Cont Eq vti 3.2 cm AV Area Cont Eq pk 2.8 cm Mitral E Point Velocity 63.2 cm/s Mitral A Point Velocity 70.6 cm/s Mitral E to A Ratio 0.9 LV E' Lateral Velocity 10.0 cm/s Mitral E to LV E' Lateral Ratio 6.3 LV E' Septal Velocity 6.1 cm/s Mitral E to LV E' Septal Ratio 10.3 TR Peak Velocity 214.0 cm/s TR Peak Gradient 18.3 mmHg PV Peak Velocity 45.1 cm/s PV Peak Gradient 0.8 mmHg FINDINGS LEFT VENTRICLE Normal left ventricular size. Wall thickness is normal. The left ventricular systolic function is normal with an estimated ejection fraction in the range of 55-60%. RIGHT VENTRICLE Normal right ventricular size and systolic function. LEFT ATRIUM The left atrial size is normal. RIGHT ATRIUM The right atrial size is normal. ATRIAL SEPTUM No atrial level shunt is demonstrated by color flow Doppler interrogation. AORTA The aortic root and proximal ascending aorta are normal in size on limited imaging. MITRAL VALVE Trace mitral valve regurgitation. AORTIC VALVE Trileaflet aortic valve. No aortic valve stenosis or regurgitation. TRICUSPID VALVE There is trace tricuspid valve regurgitation. PULMONARY VALVE No pulmonary valve regurgitation or stenosis. VESSELS The inferior vena cava was not well visualized. PERICARDIUM No pericardial effusion. Discharge Plan - Discharge Disposition Patient Disposition: W/Home Health Service - Discharge Condition Condition: Stable - Discharge Order Discharge Orders: Discharge Order (Routine); Ordered 08/01/18 Ordered By: Torie Adams - Discharge Details Anticipated Discharge Date: 08/01/18 - Physicians Team Primary Care Provider: Juan Sebastian Attending Provider: Juan Sebastian Other Providers: Matty Madrid MD ; Gabriela Morales MD
[2018-08-01 12:54] VITALS: BP 128/70; TEMP 98.1; O2SAT 98
[2018-08-01] MEDS ORDERED: levoFLOXacin 750 MG Tablet PO ONE (14:00)
--- NOTE | 2018-08-01 17:04 | P.PNCA ---
Subjective Interval history: alert in nad Medications and Allergies Active Medications: Active Medications Acetaminophen (Tylenol) 650 mg PO Q4H PRN PRN Reason: Temp > 100.4 Al Hydroxide/Mg Hydroxide (Milk Of Magnesia Liq) 30 ml PO Q12H PRN PRN Reason: Mild Constipation Last Admin: 08/01/18 00:22 Dose: 30 ml Al Hydroxide/Mg Hydroxide (Milk Of Magnesia Liq) 30 ml PO DAILY [facility] Last Admin: 08/01/18 09:04 Dose: Not Given Albuterol (Duoneb Neb (Prn)) 1 ampul NEB Q2HR NEB PRN PRN Reason: WHEEZING Aspirin (Aspirin Chew) 81 mg PO DAILY [facility] Last Admin: 08/01/18 09:00 Dose: 81 mg Atorvastatin Calcium (Lipitor) 40 mg PO HS [facility] Last Admin: 07/31/18 21:31 Dose: 40 mg Bisacodyl (Dulcolax Supp) 10 mg RECTAL DAILY PRN PRN Reason: SEVERE CONSITIPATION Last Admin: 07/31/18 21:31 Dose: 10 mg Bisacodyl (Dulcolax Supp) 10 mg RECTAL PRN PRN PRN Reason: SEE LABEL COMMENTS Clopidogrel Bisulfate (Plavix) 75 mg PO DAILY [facility] Last Admin: 08/01/18 09:03 Dose: 75 mg Dextrose (D50w Vial) 50 ml IV.PUSH UNSCH PRN PRN Reason: PER HYPOGLYCEMIA PROTOCOL Docusate Sodium (Colace) 100 mg PO BID [facility] Last Admin: 08/01/18 09:00 Dose: 100 mg Glucagon (Glucagon Inj) 1 mg OTHER PRN PRN PRN Reason: For hypoglycemia Insulin Aspart (Novolog Insulin Correctional Sugar Inj) 0 unit SQ ACHS [facility]; Protocol Last Admin: 08/01/18 12:28 Dose: Not Given Lactulose (Lactulose Liq) 30 ml PO DAILY PRN PRN Reason: SEVERE CONSITIPATION Last Admin: 07/31/18 16:27 Dose: 30 ml Multivitamins/Minerals (Theragran-M) 1 tab PO DAILY [facility] Last Admin: 08/01/18 09:04 Dose: 1 tab Ondansetron HCl (Zofran Inj) 4 mg IV.PUSH Q6H PRN PRN Reason: NAUSEA OR VOMITING Oxycodone/Acetaminophen (Percocet 5/325 Mg) 1 tab PO Q3H PRN PRN Reason: PAIN SCALE 1 TO 5 Last Admin: 08/01/18 09:04 Dose: 1 tab Oxycodone/Acetaminophen (Percocet 5/325 Mg) 2 tab PO Q4H PRN PRN Reason: Acute Pain Last Admin: 08/01/18 00:15 Dose: 2 tab Pantoprazole Sodium (Protonix) 40 mg PO DAILY@06 [facility] Last Admin: 08/01/18 05:15 Dose: 40 mg Polyethylene Glycol (Miralax) 17 gm PO DAILY [facility] Last Admin: 08/01/18 09:04 Dose: Not Given Sennosides (Senokot) 8.6 mg PO HS [facility] Last Admin: 07/31/18 21:31 Dose: 8.6 mg Sodium Biphosphate/Sodium Phosphate (Fleets Enema (Adult)) 118 ml RECTAL UNSCH PRN PRN Reason: SEE LABEL COMMENTS Sodium Chloride (Ns Flush) 2 ml IV.FLUSH BID [facility] Last Admin: 08/01/18 09:04 Dose: 2 ml Sodium Chloride (Ns Flush) 2 ml IV.FLUSH PRN PRN PRN Reason: FLUSH AFTER USING IV ACCESS Allergies Allergy/AdvReac Type Severity Reaction Status Date / Time penicillin G Allergy Severe Unverified 04/16/17 12:50 Home Medications Medication Instructions Recorded Confirmed Type atorvastatin [Lipitor] 40 mg PO DAILY 07/23/18 07/23/18 History esomeprazole magnesium [Nexium 07/23/18 History 24HR] Physical Exam Vital signs: Vital Signs 07/31/18 18:00 07/31/18 19:00 07/31/18 20:00 Temperature 97.7 F Pulse Rate 82 83 82 Respiratory Rate 18 Blood Pressure 126/70 Pulse Oximetry 98 07/31/18 21:00 07/31/18 21:31 07/31/18 22:00 Temperature Pulse Rate 81 77 Respiratory Rate 16 Blood Pressure Pulse Oximetry 07/31/18 23:00 08/01/18 00:00 08/01/18 01:00 Temperature 98.3 F Pulse Rate 78 75 74 Respiratory Rate 18 Blood Pressure 107/62 Pulse Oximetry 98 08/01/18 02:00 08/01/18 03:00 08/01/18 04:00 Temperature 98.5 F Pulse Rate 74 70 73 Respiratory Rate 18 Blood Pressure 100/64 Pulse Oximetry 97 08/01/18 05:00 08/01/18 05:50 08/01/18 07:00 Temperature 97.9 F Pulse Rate 75 75 81 Respiratory Rate 16 Blood Pressure 115/67 Pulse Oximetry 99 08/01/18 08:00 08/01/18 09:00 08/01/18 10:00 Temperature Pulse Rate 81 82 88 Respiratory Rate Blood Pressure Pulse Oximetry 99 08/01/18 11:00 08/01/18 12:00 08/01/18 12:51 Temperature 98.1 F Pulse Rate 74 84 84 Respiratory Rate 16 Blood Pressure 128/70 Pulse Oximetry 98 Intake & Output 07/31/18 08/01/18 08/01/18 18:59 06:59 18:59 Intake Total 480 / 480 720 / 720 Output Total 900 / 900 400 / 400 Balance -420 / -420 320 / 320 Weight 78.1 kg 76.4 kg Intake: Oral 480 / 480 720 / 720 Output: Urine 900 / 900 400 / 400 Other: Date of Last Bowel Movement 07/27/18 08/01/18 08/01/18 # Bowel Movements 1 - Constitutional no acute distress - Routine HEENT Exam Head: Present: normocephalic - Routine Neck Exam Present: supple - Routine Respiratory Exam Present: CTA bilaterally - Routine Cardiovascular Exam Present: S1, S2 - Routine Abdominal Exam Present: soft - Routine Extremities Exam Comments: no gladys - Urinary Catheter Management Indwelling Temp Sensing Catheter Cath placed during this visit: yes, but has since been removed by the nurse Urethral indwelling: No Reason for continuing: Decision to DC catheter Insertion date: 07/28/18 Insertion time: 15:30 Removal date: 07/29/18 Removal time: 06:00 Results 08/01/18 04:26 08/01/18 04:26 CBC 08/01/18 Range/Units 04:26 WBC 10.3 (4.0-11.0) th/mm3 RBC 3.65 L (4.50-5.90) mil/mm3 Hgb 11.3 L (13.0-17.0) gm/dL Hct 34.8 L (39.0-51.0) % Plt Count 179 (150-450) th/mm3 Neut # (Auto) 7.1 (1.8-7.7) th/mm3 Lymph # (Auto) 2.1 (1.0-4.8) th/mm3 [place] # (Auto) 1.0 H (0.0-0.9) th/mm3 Eos # (Auto) 0.1 (0.0-0.4) th/mm3 Baso # (Auto) 0.0 (0.0-0.2) th/mm3 Comprehensive Metabolic Panel 08/01/18 Range/Units 04:26 Sodium 138 (136-145) meq/L Potassium 4.2 (3.5-5.1) meq/L Chloride 104 (98-107) meq/L Carbon Dioxide 28.9 (21.0-32.0) meq/L BUN 17 (7-18) mg/dL Creatinine 1.25 (0.60-1.30) mg/dL Calcium 8.8 (8.5-10.1) mg/dL Intake and Output 08/01/18 08/01/18 08/01/18 06:59 14:59 22:59 Intake Total 720 / 720 Output Total 400 / 400 Balance 320 / 320 Intake: Oral 720 / 720 Output: Urine 400 / 400 Other: Date of Last Bowel Movement 08/01/18 08/01/18 # Bowel Movements 1 Weight 76.4 kg - Imaging and Cardiology Imaging: Impressions Chest X-Ray 08/01/18 06:00 CONCLUSION: 1. No pneumothorax is identified following left chest tube removal. 2. Underinflation with bibasilar opacity, left greater than right, representing either atelectasis or consolidation. Assessment and Plan - Assessment (1) Coronary artery disease Code(s): I25.10 - Atherosclerotic heart disease of [place] coronary artery without angina pectoris Status: Acute Plan: 1.) CAD - pod #4 s/p cabg, continue aspirin, lipitor, lopressor, Plavix (1) Coronary artery disease Qualifiers: Coronary Disease-Associated Artery/Lesion type: [place] artery [place] vs. transplanted heart: [place] heart Associated angina: with unstable angina Qualified Code(s): I25.110 - Atherosclerotic heart disease of [place] coronary artery with unstable angina pectoris
== END 2018-08-01 13:48 | disposition home health service (06) ==
LOC: NEPE 20:49 → NEDA 23:55 → HCPC 07-24 01:55 → HCVI 07-28 18:50 → HCPC 07-29 11:52
PROVIDERS: ADMIT Family Medicine; ATTEND Family Medicine